=== PATIENT | male | born 1970 | race Caucasian/White ===

== ENCOUNTER 2017-03-05 13:51 | Inpatient (IN) ==
[2017-03-05] MEDS ORDERED: Nitroglycerin 0.4 MG TAB.SUBL SL PRN (15:18)
[2017-03-05] MEDS ORDERED: Acetaminophen 325 MG TABLET PO ONE (15:18)
[2017-03-05] MEDS ORDERED: Aspirin 81 MG TAB.CHEW PO ONE (15:18)
[2017-03-05 15:26] LABS: Basophils # 0.1 K/mcL (0.0-0.2); Basophils % 0.7 %; Eosinophils # 0.1 K/mcL (0.0-0.6); Eosinophils % 1.5 %; Hematocrit 49.4 % (37.5-50.1); Hemoglobin 15.8 g/dL (12.9-16.9); Immature Granulocytes % 0.3 % (0-4); Lymphocytes # 1.9 K/mcL (0.6-4.6); Lymphocytes % 19.6 %; Mean Corpuscular Hemoglobin 27.4 pg (28.0-33.3); Mean Corpuscular Volume 85.6 fL (83.0-100.0); Mean Platelet Volume 11.1 fL (9.4-12.4); Monocytes # 0.7 K/mcL (0.0-1.3); Monocytes % 6.9 %; Neutrophils # 6.8 K/mcL (1.6-8.9); Platelet Count 273 K/mcL (140-400); Red Blood Count 5.77 M/mcL (4.19-5.50); Red Cell Distribution Width 13.3 % (11.5-14.5)
--- NOTE | 2017-03-05 15:40 | Emergency Department Note ---
Disposition Clinical Impression: Chest pain, Hypertension Disposition: Admitted As Inpatient Condition: Fair Time of Disposition: 16:41 Chest Pain HPI - General Chief Complaint: ED Chest Pain Stated Complaint: Chest Pain, High BP Time Seen by Provider: 03/05/17 15:05 Source: patient Mode of arrival: ambulatory Limitations: no limitations Vital Signs Reviewed: Yes Nursing Notes Reviewed: Yes - History of Present Illness HPI Narrative: 46-year-old male presents to the ED complaining of chest pain. Patient has a past medical history of hypertension and a TIA in 2001. He has not been taking his hypertensive medications for approximately 2-3 years. Due to not seeing a primary care physician and not refilling them. He states since August he has had 5 out 10 chest pain that is nonradiating substernal in the center of his chest. He says that it can go as high as an 8 out of 10 when he is walking up stairs or doing any Exertional activities. He is a little short of breath when he does exertion as well. He says currently his pain is 4 out of 10 nonradiating and is a sharp stabbing pain that fluctuates between 4 at 10 and 6 out of 10 pain. He has not taken anything for the pain. He said the reason he came in today was that he notices below more dizzy when he gets out of bed and he was lowered to this brought his heart. He states the dizziness feels like the room is spinning around. He is having no other complaints at this time. Severity scale (1-10): 2 - Related Data Home Medications Medication Instructions Recorded Confirmed No Known Home Drugs 03/05/17 03/05/17 Allergies Allergy/AdvReac Type Severity Reaction Status Date / Time No Known Allergies Allergy Verified 03/05/17 13:53 Constitutional: Denies: fever, chills, weakness, weight change Eyes: Denies: eye pain, eye discharge, vision change ENT ED: Denies: ear pain, throat pain, dental pain, hearing loss, epistaxis, congestion, dysphagia Cardiovascular: Reports: chest pain. Denies: palpitations, dyspnea on exertion , edema, syncope Respiratory: Reports: dyspnea. Denies: cough, wheezes, hemoptysis, stridor Gastrointestinal: Denies: abdominal pain, nausea, vomiting, diarrhea, constipation, hematemesis, melena, hematochezia Genitourinary: Denies: urgency, dysuria, frequency, hematuria Musculoskeletal: Denies: back pain, neck pain, arthralgia, myalgia Integumentary: Denies: rash, abrasion, lesions Neurological: Denies: headache, weakness, numbness, paresthesias, confusion, abnormal gait, vertigo Psychiatric: Denies: anxiety, depression, suicidal thoughts, homicidal thoughts , auditory hallucinations, visual hallucinations Endocrine: Denies: fatigue Hematological/Lymphatic: Denies: easy bleeding, easy bruising Allergic/Immunologic: Denies: facial swelling, urticaria Chest Pain PMH - Past Medical History Medical history: Reports: hyperlipidemia, hypertension, other Psychiatric history: Reports: no psych history - Social History Smoking Status: Current every day smoker Alcohol use: Reports: none Drug use: Reports: none Physical Exam - General Limitations: no limitations General appearance: alert, in no apparent distress - Head Head exam: atraumatic, normocephalic, normal inspection - Eye Eye exam: Present: normal appearance, PERRL, EOMI - ENT ENT exam: normal exam, normal oropharynx, mucous membranes moist - Neck Neck exam: Present: normal inspection, full ROM, trachea midline - Chest Chest inspection: Present: normal inspection, symmetric chest wall rise. Absent : tenderness - Respiratory Respiratory exam: Present: normal lung sounds bilaterally. Absent: respiratory distress, wheezes - Cardiovascular Cardiovascular exam: Present: regular rate, normal rhythm, normal heart sounds - Abdominal Exam Abdominal exam: Present: soft, Non-Tender. Absent: tenderness, distention, guarding, rebound, rigidity - Back Exam Back exam: Present: normal inspection, full ROM. Absent: tenderness, CVA tenderness (R), CVA tenderness (L) - Neurological Exam Neurological exam: Present: alert, oriented X3, normal gait - Skin Skin exam: Present: warm, dry, intact, normal color Course Course Narrative: 46-year-old male presents to the ED complaining of chest pain and dizziness since August. He has a history of hypertension but has not been taking his medications this time. He also presented with an elevated blood pressure at over 200 systolic. Basic chest pain workup on him including CBC, BMP, hepatic panel, troponin, TSH as well as chest x-ray and EKG. For his pain we will give him nitroglycerin though also lower his blood pressure as well. We will give him 325 aspirin. 2 keep the headache from occurring with the nitroglycerin will also give him Tylenol. Patient is a This point. Spoke with him about most likely having to be admitted for a chest pain evaluation with cardiology. Patient was okay with this plan. Plan as analysis to admit the patient upon all studies coming back. - Reevaluation(s) Reevaluation #1: Patient reevaluated at this time states that he is not having any chest pain after nitroglycerin but his headache has increased. Larry a common side effects of the headache and he said that the Tylenol should Pete kick in here in a few and it should be feeling better. He is not wanting more pain medication at the time for the headache. His blood pressure dropped from the 210s when he first came in systolic to 183 systolic after the nitroglycerin was given. We did not want to lower it too much so we are going to not give him any more nitroglycerin this time unless he starts having chest pain will consider doing a nitro drip. He again is agreed to admission and he have contacted the hospitalist for admission. Time: 16:24 - Consultations Consultation #1: Spoke with Dr. Harry hospitalist who agreed to accept the patient to 2 N. He asked for me to put him on a nitro drip for blood pressure control to keep between 140-160 systolic. We started him on 5 mics per minute. This is being used for blood pressure control as opposed to chest pain Vital Signs Temperature 97.6 F 03/05/17 13:53 Pulse Rate 96 03/05/17 13:53 Respiratory Rate 18 03/05/17 13:53 Blood Pressure 212/135 03/05/17 13:53 O2 Sat by Pulse Oximetry 97 03/05/17 13:53 Temperature 97.6 F 03/05/17 13:53 Pulse Rate 75 03/05/17 17:00 Respiratory Rate 16 03/05/17 17:00 Blood Pressure 176/139 03/05/17 17:00 O2 Sat by Pulse Oximetry 98 03/05/17 17:00 Oxygen Delivery Oxygen Delivery Nasal Cannula Chest Pain - MDM Narrative Medical decision making narrative: 46-year-old male presents to the ED complaining of chest pain, high blood pressure, headache. His blood pressure was 210 systolic when he first arrived and he was complaining of 4 out 10 chest pain he has had this been going on for several months since August. He stated this evening about him in here today was the increasing dizziness. He has had very for polyp has not seen a doctor in over a year. He is not taking any of his medications. Due to his chest pain and his high blood pressure we sided treat him with one sublingual nitroglycerin which did lower his blood pressure down to 180 systolic. He is not complaining of any chest pain after the soleal nitroglycerin was given. We also gave him one 325 mg aspirin. He was also given 600 mg Tylenol for headache with the nitroglycerin. Patient was started on a liter of fluids for possible dehydration. The patient he agreed that admission would be his best course of action and he agreed to be admitted. As recommended due to him having this chest pain and not being seen and also having the very high blood pressure. He also has a heart score of 5 which recommends admission. And a cardiac evaluation. I spoke with the hospitalist Dr. Harry who agreed to admit the patient. After talking to him they asked for us to start a nitroglycerin drip to keep his blood pressure between 140 and 160 systolic. This is not being used for chest pain but used for blood pressure control. Patient is okay with this plan. Patient was admitted and was aspirin to be placed on 2 N. - Medical Records Medical records reviewed: Yes I reviewed the patient's medical records. - Lab Data Lab results reviewed: Yes I reviewed the patient's lab results. Result diagrams: 03/05/17 15:19 03/05/17 15:19 Lab Results 03/05/17 03/05/17 03/05/17 Range/Units 15:19 15:19 15:19 WBC 9.6 (4.3-11.1) K/mcL RBC 5.77 H (4.19-5.50) M/mcL Hgb 15.8 (12.9-16.9) g/dL Hct 49.4 (37.5-50.1) % MCV 85.6 (83.0-100.0) fL MCH 27.4 L (28.0-33.3) pg MCHC 32.0 (31.6-35.5) g/dL RDW 13.3 (11.5-14.5) % Plt Count 273 (140-400) K/mcL MPV 11.1 (9.4-12.4) fL Immature Gran % 0.3 (0-4) % Seg Neutrophils % 71.0 % Lymphocytes % 19.6 % Monocytes % 6.9 % Eosinophils % 1.5 % Basophils % 0.7 % Neutrophils # 6.8 (1.6-8.9) K/mcL Lymphocytes # 1.9 (0.6-4.6) K/mcL Monocytes # 0.7 (0.0-1.3) K/mcL Eosinophils # 0.1 (0.0-0.6) K/mcL Basophils # 0.1 (0.0-0.2) K/mcL Sodium 139 (136-145) mEq/L Potassium 4.0 (3.5-4.5) mEq/L Chloride 101 (98-109) mEq/L Carbon Dioxide 30 H (19-29) mEq/L BUN 16 (8-26) mg/dL Creatinine 1.24 (0.72-1.25) mg/dL Est GFR ( Amer) > 60 (> 60) Est GFR (Non-Af Amer) > 60 (> 60) BUN/Creatinine Ratio 13 (6-26) Glucose 95 (70-99) mg/dL Calculated Osmolality 289 (280-300) Calcium 9.7 (8.6-10.8) mg/dL Total Bilirubin 0.5 (0.2-1.2) mg/dL Direct Bilirubin 0.2 (0.0-0.5) mg/dL Indirect Bilirubin 0.3 (0.0-1.2) mg/dL AST 18 (5-34) Units/L ALT 25 (0-55) Units/L Alkaline Phosphatase 88 (38-126) Units/L Troponin I 0.03 (0-0.03) ng/mL B-Natriuretic Peptide (0-100) pg/mL Serum Total Protein 7.8 (6.0-8.3) g/dL Albumin 4.0 (3.5-5.0) g/dL Globulin 3.8 H (2.4-3.5) g/dL Albumin/Globulin Ratio 1.1 (1.1-2.2) TSH 1.037 (0.350-4.840) mcIU/mL 03/05/17 Range/Units 15:19 WBC (4.3-11.1) K/mcL RBC (4.19-5.50) M/mcL Hgb (12.9-16.9) g/dL Hct (37.5-50.1) % MCV (83.0-100.0) fL MCH (28.0-33.3) pg MCHC (31.6-35.5) g/dL RDW (11.5-14.5) % Plt Count (140-400) K/mcL MPV (9.4-12.4) fL Immature Gran % (0-4) % Seg Neutrophils % % Lymphocytes % % Monocytes % % Eosinophils % % Basophils % % Neutrophils # (1.6-8.9) K/mcL Lymphocytes # (0.6-4.6) K/mcL Monocytes # (0.0-1.3) K/mcL Eosinophils # (0.0-0.6) K/mcL Basophils # (0.0-0.2) K/mcL Sodium (136-145) mEq/L Potassium (3.5-4.5) mEq/L Chloride (98-109) mEq/L Carbon Dioxide (19-29) mEq/L BUN (8-26) mg/dL Creatinine (0.72-1.25) mg/dL Est GFR ( Amer) (> 60) Est GFR (Non-Af Amer) (> 60) BUN/Creatinine Ratio (6-26) Glucose (70-99) mg/dL Calculated Osmolality (280-300) Calcium (8.6-10.8) mg/dL Total Bilirubin (0.2-1.2) mg/dL Direct Bilirubin (0.0-0.5) mg/dL Indirect Bilirubin (0.0-1.2) mg/dL AST (5-34) Units/L ALT (0-55) Units/L Alkaline Phosphatase (38-126) Units/L Troponin I (0-0.03) ng/mL B-Natriuretic Peptide 515 H (0-100) pg/mL Serum Total Protein (6.0-8.3) g/dL Albumin (3.5-5.0) g/dL Globulin (2.4-3.5) g/dL Albumin/Globulin Ratio (1.1-2.2) TSH (0.350-4.840) mcIU/mL - Radiology Data Radiology results reviewed: Yes I reviewed the patient's radiology results. - EKG Data EKG attestation: Yes I reviewed and interpreted this EKG. EKG results narrative: EKG done and reviewed by myself at 1356. It shows a normal sinus rhythm at a rate of 91 bpm, TN interval 168, QRS 101, QTC 426 with a leftward axis. There are no acute ST changes, no T-wave abnormalities. There are signs of LVH and right heart strain as well as some early re-pole with left atrial enlargement.. He does have lateral Q waves. There is no old EKG to compare at this time. My overall impression of this EKG normal sinus rhythm with LVH and right heart strain and some possible old lateral wall ischemia. EKG shows normal: sinus rhythm, axis, intervals, QRS complexes, ST-T waves Rate: normal Rhythm: NSR [place]/QRS: left axis deviation Voltage: c/w LVH When compared to previous EKG there are: previous EKG unavailable Interpretation: LVH Heart Score - Score History: Moderately Suspicious EKG: Non Specific repolarisation Disturbance Age: 45-65 Risk Factors: Equal/Greater than 3 risk factor or history of atherosclerotic disease Troponin: Less than normal limit HEART Score Total: 5 Critical Care Time Critical Care Time: Yes Total Critical Care Time: 30 Attestation: Critical care performed: Time is exclusive of separately billable procedures. Time includes: direct patient care, patient reassessment, coordination of patient care, interpretation of data (laboratory data, radiology data, and respiratory data), review of patient's medical records, medical consultation and documentation of patient care. Procedures included in critical care time: Nitro Drip Procedures excluded from critical care time: Attestation Statement - Attestation Attestation: I, Kilo Angel DO, examined this patient [id number] and my medical decision-making was reviewed with Dr. Strange PGY -1, Resident Physician. I agree with the documented findings, disposition and treatment plan as described except to the extent set forth below. Please see my progress notes for details. 46-year-old male presents emergency room chest pain hypertension and headache. Symptoms of been progressively getting worse over months. Pain in his back and his anterior chest wall is persistent at this point. He has exertional symptoms with pain that is worse with deep inspiration or exertional activities at home. Patient is noncompliant with medical treatment. Blood pressure was significantly elevated. Labs appear to be stable at this point except for elevated BNP. EKG showed left ventricular heart atrophy with early repolarization and atrial enlargement. This is consistent with his elevated blood pressure as well as his pulmonary congestion. Will be started on coronary syndrome treatment. Patient will require admission to hospital for evaluation definitive management. Concern is noted for cardiac source to his symptoms. Patient phone as planned. No other issues noted. Chest x-ray and labs reviewed. Hospitals contacted. Admission completed this time. Symptoms did respond to nitroglycerin with his blood pressure coming down into the 180 systolic range as well as his chest pain completely relieved. Patient will be monitored here until admission process is completed. See detailed documentation of conversations and admission note and the resident physician chart. Requests were made by the hospitalist for nitroglycerin drip. Low dosage of medication abuse at this time except the patient is chest pain-free. We will use of her blood pressure control as opposed to chest pain.
[2017-03-05 15:42] LABS: Alanine Aminotransferase 25 Units/L (0-55); Albumin/Globulin Ratio 1.1 (1.1-2.2); Alkaline Phosphatase 88 Units/L (38-126); Aspartate Amino Transferase 18 Units/L (5-34); BUN/Creatinine Ratio 13 (6-26); Bilirubin,Direct 0.2 mg/dL (0.0-0.5); Bilirubin,Indirect 0.3 mg/dL (0.0-1.2); Bilirubin,Total 0.5 mg/dL (0.2-1.2); Blood Urea Nitrogen 16 mg/dL (8-26); Calcium 9.7 mg/dL (8.6-10.8); Carbon Dioxide 30 mEq/L (19-29); Chloride 101 mEq/L (98-109); Globulin 3.8 g/dL (2.4-3.5); Glucose 95 mg/dL (70-99); Osmolality,Calculated 289 (280-300); Sodium 139 mEq/L (136-145); Total Protein 7.8 g/dL (6.0-8.3); eGFR For African Americans > 60 (> 60); eGFR For Non-African Americans > 60 (> 60)
[2017-03-05 16:02] LABS: Thyroid Stimulating Hormone 1.037 mcIU/mL (0.350-4.840)
[2017-03-05] MEDS ORDERED: 0.9 % Sodium Chloride 1,000 ML IVC ONE (16:18)
[2017-03-05] MEDS: Nitroglycerin 25 MG/250 ML INFUS..BTL IVC SCH (16:54)
[2017-03-05] MEDS ORDERED: 0.9 % Sodium Chloride 1,000 ML ONE (18:25)
[2017-03-05] MEDS ORDERED: *HR* Morphine 2 MG/ML SYRINGE IVP PRN (20:13)
[2017-03-05] MEDS ORDERED: Naloxone 0.4 MG/ML INJ IVP PRN (20:13)
[2017-03-05] MEDS ORDERED: Acetaminophen 325 MG TABLET PO PRN (20:13)
--- NOTE | 2017-03-05 20:40 | Internal Med History&Physical ---
<Shahram Euceda - Last Filed: 03/05/17 23:48> Date of Encounter: 03/05/17 Time of Encounter: 19:30 Assessment and Plan (1) HTN (hypertension) Current visit: Yes Status: Acute Patient presents with acute on chronic hypertension. On admission to the ED, patient's BP was 212/135 followed by 176/139. Patient placed on nitro drip for blood pressure control in order to keep systolic pressure between 140-160. He was started on 5 mics per minute for BP and current chest pain control. Hydralazine 10 mg PO ONCE ordered. Lopressor 25 mg PO BID ordered daily. Will titrate nitro drip according to patient's BP levels. Will add statin. Monitor patient and vitals Q1HR. Cardiology consult ordered. Patient placed on continuous cardiac telemetry due to current chest pain. Supplemental O2 and SpO2 monitoring ordered. Qualifiers: Hypertension type: essential hypertension Qualified Code(s): I10 - Essential (primary) hypertension (2) Chest pain Current visit: Yes Status: Acute Patient presents with acute on chronic chest pain that he states has been occurring since August and has become progressively worse. He states the pain is substernal and non-radiating and becomes worse with exertion. 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 Initial troponin on admission to ED was 0.03. BP on examination was 68/121. Echocardiogram ordered. Will trend troponins x2. Patient to be placed on continuous cardiac telemetry. Cardiology consult ordered. Will consider nuclear stress test if hypertension can be addressed and lowered. Patient placed on nitro drip with titration. Hydralazine 10 mg PO ONCE ordered. Will administer Lopressor 25 mg PO BID. Patient to be monitored closely. Qualifiers: Chest pain type: chest pain on breathing Qualified Code(s): R07.1 - Chest pain on breathing; R07.81 - Pleurodynia (3) Dizziness Current visit: Yes Status: Acute Patient reports acute dizziness with positional body and head changes and states it feels as though the room is spinning. Patient reports having a TIA in 2001 that resulted in short-term memory loss. Patient also reports having abdominal aneurysms x3. On examination, patient has no neurological deficits. CTA of chest, abdomen, and pelvis ordered to assess for PE and abdominal aneurysm status. Bilateral carotid Doppler duplex imaging ordered. Falls/safety precautions. Orthostatic BPs and VS ordered. (4) HLD (hyperlipidemia) Current visit: Yes Status: Chronic Patient presents with history of chronic hyperlipidemia. Lipid panel ordered. Lipitor 20 mg daily ordered while inpatient. Qualifiers: Hyperlipidemia type: pure hypercholesterolemia Qualified Code(s): E78.00 - Pure hypercholesterolemia, unspecified; E78.0 - Pure hypercholesterolemia (5) GERD (gastroesophageal reflux disease) Current visit: Yes Status: Chronic Patient presents with history of chronic gastroesophageal reflux disease. IVP Zofran every 6 when necessary for nausea. IVP Protonix 40 mg once a day ordered. Qualifiers: Esophagitis presence: esophagitis presence not specified Qualified Code(s) : K21.9 - Gastro-esophageal reflux disease without esophagitis (6) Abdominal aneurysm Current visit: Yes Status: Chronic Patient has history of chronic abdominal aneurysms x3. Last imaging of these in 2015 showed mild abdominal aortic atherosclerosis. Infrarenal fusiform 4.4 x 4.6 cm aneurysm with mural thrombus and no evidence of dissection. The aneurysm measures approximately 7.2 cm in length. The celiac axis, superior mesenteric arteries, and renal arteries are patent. The inferior mesenteric artery arises from the distal aspect of the aneurysm and is patent. Mild bilateral common iliac atherosclerosis with short segment 1.9 cm aneurysmal dilatation of the right common iliac artery extending to the bifurcation. Bilateral internal and external iliac arteries demonstrate atherosclerosis with no aneurysm formation. No evidence of dissection. CTA of the chest, abdomen, and pelvis ordered to determine current status of these aneurysms. (7) DVT prophylaxis Current visit: Yes Status: Acute Patient placed on DVT prophylaxis due to current admission protocol and bedrest status. Heparin 5000 units SQ every 8 ordered. Internal Medicine - H&P: HPI Chief complaint: Chest pain/SOB Admitted From: Emergency Dept Plans for Post Hospital Care: Home History of present illness: Mr. Berrios is a 46 year old male who presents from the ED with chief complaint of hypertension and chest pain. He describes chest pain as substernal and non-radiating and has been occurring since August. He states the CP becomes worse with exertion. Patient states that his hypertension has been uncontrolled since he stopped taking his BP medications 2-3 years ago due to losing his insurance. He reports he now has a job and insurance but no PCP. He also states that he becomes very dizzy with postional body or head changes to the point where he feels like the room is spinning. With the current symptoms, Mr. Berrios also reports diaphoresis and SOB. Patient denies recent illness, fever, chills, weakness, weight change, changes in vision, edema, cough, abdominal pain, nausea, vomiting, diarrhea, constipation, unusual bleeding, or syncope. Patient's current medical history includes hyperlipidemia, hypertension, TIAs with last incident in 2001 which he states he lost his short- term memory, GERD, and gout. Patient also has a history of 3 abdominal aneurysms. Mr. Berrios reports he is a current every day smoker smoking one half pack per day. Single view CXR today shows cardiomediastinal silhouette is within normal limits, mild nonspecific hazy opacities at right lung base, no pneumothorax, no vascular congestion or consolidation, no pleural effusion or acute osseous abnormality. Information obtained from the patient, chart review, and previous medical records. Mr. Berrios is at high risk for hypertensive emergency due to his BP of 168/121 and will be placed as inpatient status. Time spent with patient >50 minutes. Past Med Surg Social Fam HX - Past Medical History Source: patient, old records reviewed Medical history: hyperlipidemia, hypertension, TIA, other (Gout) Psychiatric history: no psych history - Past Surgical History Surgical History: no surgical history - Social History Smoking Status: Current every day smoker Packs per day: 1/2 PPD Smokeless Tobacco Status: No Alcohol use: none Drug use: none Occupational status: employed Current living situation: Home, With Family Activity Level: Independent ambulation Recent Out of Country Travel Within the Last 8 Weeks: No Exposure or Possible Exposure to Illness During Travel: No - Family History Father History Unknown: Yes Adopted: Yes Mother History Unknown: Yes Adopted: Yes Brother History Unknown: Yes Adopted: Yes Sister History Unknown: Yes Adopted: Yes Grandfather Race: Family Member Ethnicity: Non- Living Status: Cause of : HD Hx Family Cardiac Disorders: Yes (HD, HTN, HLD) Hx Family Genitourinary Disorders: Yes (Gout) Hx Family Endocrine Disorder: Yes (DM) Internal Medicine - H&P: Meds No Known Home Drugs 03/05/17 [History] 3 Allergy/AdvReac Type Severity Reaction Status Date / Time No Known Allergies Allergy Verified 03/05/17 13:53 All Systems PM: A 10-system review of systems was performed and is negative for pertinent findings except as documented above in the HPI. - Constitutional Constitutional: no chills, no fever(s), no night sweats - EENT Eyes: no change in vision, no discharge, no pain, no photophobia Ears: no ear discharge, no ear pain, no tinnitus Nose, mouth and throat: no dysphagia, no nasal discharge, no neck pain, no sore throat - Breasts Breasts: as per HPI - Cardiovascular Cardiovascular ROS IM: as per HPI, chest pain, diaphoresis, dyspnea, dyspnea on exertion, lightheadedness (Dizziness) - Respiratory Respiratory: as per HPI, dyspnea, dyspnea on exertion, pain on inspiration - Gastrointestinal Gastrointestinal: no abdominal pain, no diarrhea, no hematemesis, no hematochezia, no melena, no nausea, no vomiting - Genitourinary Genitourinary ROS male: as per HPI - Musculoskeletal Musculoskeletal ROS IM: no numbness, no tingling - Integumentary Integumentary IM: no rash, no unusual bruising - Neurological Neurological ROS: as per HPI, disequilibrium, dizziness, no confusion, no convulsions, no focal weakness, no numbness, no tingling, no tremor(s) - Psychiatric Psychiatric: as per HPI - Endocrine Endocrine IM: as per HPI - Hematologic/Lymphatic Hematologic/Lymphatic: no easy bruising - Allergic/Immunologic Allergic/Immunologic: as per HPI - Constitutional Vitals: Temp Pulse Resp BP Pulse Ox 97.7 F 80 20 189/135 98 03/05/17 18:29 03/05/17 18:29 03/05/17 18:29 03/05/17 18:57 03/05/17 18:29 General appearance: Present: cooperative, A&O X 3, pleasant, no acute distress, answers questions appropriately - Head Head exam: Present: atraumatic, normocephalic - Eye Eye exam: Present: PERRL, conjuntiva pink, sclera anicteric Pupils: Present: PERRL - ENT ENT exam: Present: normal exam, normal external ear exam - Neck Neck exam general surgery: Present: normal inspection, supple, trachea midline. Absent: lymphadenopathy - Respiratory Respiratory exam: Present: CTAB, wheezes. Absent: accessory muscle use, rales, rhonchi - Cardiovascular Cardiovascular exam: Present: RRR, +S1, +S2. Absent: diastolic murmur, gallop, rubs, systolic murmur - GI/Abdominal GI/Abdominal exam: Present: normal bowel sounds, soft, no peritoneal signs. Absent: distended, tenderness - Rectal Rectal exam: Present: deferred - Additional comments: exam deferred. - Extremities Exam Extremities exam: Present: warm, radial pulses palpable and symmetrical. Absent : calf tenderness, cyanotic, pedal edema - Back Exam Back exam: Present: normal inspection - Neurological Exam Neurological exam: Present: CN II-XII intact, oriented X3, no focal deficits. Absent: pronater drift, facial droop, speech deficit - Psychiatric Psychiatric exam: Present: normal affect, normal mood - Skin Skin exam: Present: dry, intact Internal Med - H&P Results - Labs CBC & Chem 7: 03/05/17 15:19 03/05/17 15:19 - Diagnostic Studies Chest x-ray Additional comments: Impressions Chest X-Ray 03/05/17 13:57 IMPRESSION: Mild nonspecific right basilar hazy airspace opacities. D/ / Philip Bass MD / Philip Bass MD Interpreting Provider: Philip Bass MD <Kat Bernstein W - Last Filed: 03/06/17 07:02> Date of Encounter: 03/06/17 Internal Medicine - H&P: HPI History of present illness: Mr. Berrios is a 46 year old male All Systems PM: A 10-system review of systems was performed and is negative for pertinent findings except as documented above in the HPI. - Constitutional Vitals: Temp Pulse Resp BP Pulse Ox 98.1 F 87 16 164/117 97 03/06/17 03:00 03/06/17 06:25 03/06/17 03:00 03/06/17 06:25 03/06/17 03:00 Internal Med - H&P Results - Labs CBC & Chem 7: 03/06/17 03:54 03/06/17 03:54 Labs: Short CBC 03/06/17 Range/Units 03:54 WBC 10.1 (4.3-11.1) K/mcL Hgb 14.0 D (12.9-16.9) g/dL Hct 42.7 (37.5-50.1) % Plt Count 220 (140-400) K/mcL Neutrophils # 8.2 (1.6-8.9) K/mcL BMP 03/06/17 03:54 Sodium 139 Potassium 3.6 Chloride 105 Carbon Dioxide 25 BUN 16 Creatinine 1.11 Glucose 121 H Calcium 9.0 Cardiac Enzymes 03/05/17 03/06/17 Range/Units 22:33 03:54 Troponin I 0.01 0.04 H* (0-0.03) ng/mL - Attending Attestation Seen/examined/supervised MDM. 46M with uncontrolled HTN, prior TIA and AAA has been non-adherent to att least 3 anti-HTN agents (clonidine, metoprolol, lisinopril) due to lack of insurance. He has presented with chest pain, dyspnea , dizziness, disorientation and headache along with BP of 220s/120's consistent with hypertensive emergency. Continue NG gtt, and start PO metoprolol, uptitrate as needed. May need to add PO clonidine. Gradually decrease BP. He also has right basilar opacity on CXR, without S/S of PNA, will not use any antibiotics. Later CTA showed increase in the size of AAA, consult vascular surgery. He had chest pain as a manifestation of HTN emergency with EKG showing lateral TWI likely due to LVH. Serial troponin, TTE. He may benefit from a stress test once better BP control is achieved. Must quit tobacco use.
[2017-03-05] MEDS ORDERED: Levofloxacin 750 MG/150 ML 750 MG/150 ML BAG IVPB SCH (21:00)
[2017-03-05] MEDS: Pantoprazole 40 MG VIAL IVP SCH (22:18)
[2017-03-05] MEDS: *HR* Heparin 5,000 UNIT/ML VIAL SQ SCH (23:13)
[2017-03-06] MEDS ORDERED: Temazepam 15 MG CAPSULE PO PRN (00:20)
[2017-03-06] MEDS: *HR* HYDROcodone/Acet 5/325 mg TABLET PO PRN ×2 (01:37→18:40)
[2017-03-06] MEDS ORDERED: Prochlorperazine 10 MG/2 ML VIAL IVP PRN (02:53)
[2017-03-06 04:29] LABS: Basophils # 0.1 K/mcL (0.0-0.2); Basophils % 0.7 %; Eosinophils # 0.1 K/mcL (0.0-0.6); Eosinophils % 0.8 %; Hematocrit 42.7 % (37.5-50.1); Immature Granulocytes % 0.3 % (0-4); Lymphocytes # 1.1 K/mcL (0.6-4.6); Lymphocytes % 11.3 %; Mean Corpuscular HGB Conc 32.8 g/dL (31.6-35.5); Mean Corpuscular Hemoglobin 27.8 pg (28.0-33.3); Mean Corpuscular Volume 84.9 fL (83.0-100.0); Mean Platelet Volume 11.3 fL (9.4-12.4); Monocytes # 0.5 K/mcL (0.0-1.3); Monocytes % 5.3 %; Neutrophils # 8.2 K/mcL (1.6-8.9); Platelet Count 220 K/mcL (140-400); Red Blood Count 5.03 M/mcL (4.19-5.50); Red Cell Distribution Width 13.5 % (11.5-14.5); Segmented Neutrophils % 81.6 %
[2017-03-06 04:31] LABS: INR 1.1; Prothrombin Time 11.5 Seconds (9.4-12.1)
[2017-03-06 04:34] LABS: Activated Partial Thrombo Time 28.8 Seconds (26.0-36.0)
[2017-03-06 04:41] LABS: Hemoglobin A1C 5.4 %
[2017-03-06 04:44] LABS: BUN/Creatinine Ratio 14 (6-26); Blood Urea Nitrogen 16 mg/dL (8-26); Carbon Dioxide 25 mEq/L (19-29); Chloride 105 mEq/L (98-109); Chol/HDL Ratio 8.2 (0-4.9); Cholesterol 245 mg/dL (< 200); Glucose 121 mg/dL (70-99); HDL Cholesterol 30 mg/dL (40-59); Magnesium 1.9 mg/dL (1.6-2.6); Osmolality,Calculated 290 (280-300); Potassium 3.6 mEq/L (3.5-4.5); Sodium 139 mEq/L (136-145); Triglycerides 587 mg/dL (< 150); eGFR For African Americans > 60 (> 60); eGFR For Non-African Americans > 60 (> 60)
[2017-03-06] MEDS: Nitroglycerin 25 MG/250 ML INFUS..BTL IVC SCH (06:10)
[2017-03-06] MEDS: Pantoprazole 40 MG VIAL IVP SCH (08:17)
[2017-03-06] MEDS: *HR* Heparin 5,000 UNIT/ML VIAL SQ SCH ×2 (08:17→15:59)
[2017-03-06] MEDS ORDERED: Ondansetron 4 MG/2 ML VIAL IVP PRN (09:22)
[2017-03-06] MEDS ORDERED: *HR* Labetalol 20 MG/4 ML SYRINGE IVP PRN (09:28)
--- NOTE | 2017-03-06 09:35 | Internal Med Progress Note ---
Date of Encounter: 03/06/17 Time of Encounter: 09:33 - Assessment and plan (1) Malignant essential hypertension Current Visit: Yes Status: Acute Assessment and plan: Discontinue nitroglycerin drip due to severe headache Stop metoprolol and start labetalol, continue use labetalol IV and hydralazine IV as needed Patient used to be on amlodipine and lisinopril, we will resume these medications Echocardiogram ordered (2) Chest pain Current Visit: Yes Status: Acute Assessment and plan: Consider stress test Cardiology consulted, continue aspirin Qualifiers: Chest pain type: chest pain on breathing Qualified Code(s): R07.1 - Chest pain on breathing; R07.81 - Pleurodynia (3) HLD (hyperlipidemia) Current Visit: Yes Status: Chronic Assessment and plan: Hypercholesterolemia and hypertriglyceridemia Start fenofibrate and continue simvastatin Qualifiers: Hyperlipidemia type: mixed hyperlipidemia Qualified Code(s): E78.2 - Mixed hyperlipidemia (4) GERD (gastroesophageal reflux disease) Current Visit: Yes Status: Chronic Assessment and plan: Continue Protonix IV and Zofran as needed as the patient is currently vomiting Qualifiers: Esophagitis presence: esophagitis presence not specified Qualified Code(s) : K21.9 - Gastro-esophageal reflux disease without esophagitis (5) Abdominal aneurysm Current Visit: Yes Status: Chronic Assessment and plan: Vascular surgery recommendations appreciated CTA of the abdomen showed 1. Re- demonstration of an infrarenal abdominal aortic aneurysm, which has increased in size when compared to the previous exam, now measuring 5.1 cm maximally. Given the relatively rapid increase since the previous exam, vascular surgical consultation is recommended. 2. Unchanged right common iliac artery aneurysm, measuring 1.9 cm. 3. Unchanged ascending thoracic aortic aneurysm, measuring maximally 4.5 cm. - Subjective Interval history: Complaining of severe headache after starting the nitroglycerin drip, denies any chest pain at the moment, no abdominal pain, no dysuria, no fevers or cough - Constitutional Vitals: Temp Pulse Resp BP Pulse Ox 98.0 F 79 16 169/114 91 03/06/17 07:35 03/06/17 07:35 03/06/17 07:35 03/06/17 09:30 03/06/17 07:35 General appearance: Present: cooperative, A&O X 3, pleasant, no acute distress, answers questions appropriately - Head Head exam: Present: atraumatic, normocephalic - Eye Eye exam: Present: PERRL, conjuntiva pink, sclera anicteric Pupils: Present: PERRL - Neck Neck exam general surgery: Present: supple, trachea midline. Absent: lymphadenopathy - Respiratory Respiratory exam: Present: CTAB. Absent: accessory muscle use, rales, rhonchi, wheezes - Cardiovascular Cardiovascular exam: Present: RRR, +S1, +S2. Absent: diastolic murmur, gallop, rubs, systolic murmur - GI/Abdominal GI/Abdominal exam: Present: normal bowel sounds, soft, no peritoneal signs. Absent: distended, tenderness - Extremities Exam Extremities exam: Present: warm, radial pulses palpable and symmetrical. Absent : calf tenderness, cyanotic, pedal edema - Neurological Exam Neurological exam: Present: CN II-XII intact, oriented X3, no focal deficits. Absent: pronater drift, facial droop, speech deficit - Skin Skin exam: Present: dry, intact Internal Medicine: Result - Labs CBC & Chem 7: 03/06/17 03:54 03/06/17 03:54 Labs: Short CBC 03/06/17 Range/Units 03:54 WBC 10.1 (4.3-11.1) K/mcL Hgb 14.0 D (12.9-16.9) g/dL Hct 42.7 (37.5-50.1) % Plt Count 220 (140-400) K/mcL Neutrophils # 8.2 (1.6-8.9) K/mcL BMP 03/06/17 03:54 Sodium 139 Potassium 3.6 Chloride 105 Carbon Dioxide 25 BUN 16 Creatinine 1.11 Glucose 121 H Calcium 9.0 Cardiac Enzymes 03/05/17 03/06/17 Range/Units 22:33 03:54 Troponin I 0.01 0.04 H* (0-0.03) ng/mL - ABG Interpretation ABG results: PT/INR, D-dimer PT 11.5 Seconds (9.4-12.1) 03/06/17 03:54 Consult Discharge Plan - Plan Referrals: Peter Espinal DO [Primary Care Provider] -
[2017-03-06] MEDS: Lisinopril 20 MG TABLET PO SCH (09:48)
[2017-03-06] MEDS: amLODIPine 5 MG TABLET PO SCH (09:48)
[2017-03-06] MEDS: Fenofibrate 54 MG TABLET PO SCH (09:48)
--- NOTE | 2017-03-06 11:18 | Cardiology Consult Note ---
Date of Encounter: 03/06/17 Time of Encounter: 11:14 Assessment and Plan (1) Chest pain Current Visit: Yes Status: Acute Chest pain initially started in August when he thought he had PNA. Has been intermittent since that time, substernal without radiation. Atypical in nature, described as worse with inspiration--pleuritic. Denies any worsening with exertion. Chest pain also in setting of accelerated HTN BP 212/135 on presentation. Chest pain currently /10. Associated symptoms include dyspnea, headache, dizziness, episode of nausea and vomiting this AM. Troponins negative x 2, 0.04, then negative. EKG shows LVH. Risk factors for CAD include HTN, HLD, tobacco abuse. Recommend stress test tomorrow to evaluate for ischemic cause. Currently on nitro gtt for his accelerated HTN. Will attempt to wean off. Check echo to evaluate structure and function. Also recommend optimal BP control. Qualifiers: Chest pain type: chest pain on breathing Qualified Code(s): R07.1 - Chest pain on breathing; R07.81 - Pleurodynia (2) Accelerated hypertension Current Visit: Yes Status: Acute BP 212/135 on presentation. Per pt, has been out of antihypertensives for 1 year due to losing insurance. Reports when he checks BP at home it is usually 180s/130s. Currently on Norvasc 10mg, Labetalol 200mg BID, Nitro gtt at 30mcg/min and Lisinopril 40mg daily. Attempt to wean off nitro. Most recent BP 138/97--may be why pt feels dizzy and nauseous. Will continue to adjust oral antihypertensives as necessary. (3) Elevated troponin Current Visit: Yes Status: Acute 3rd troponin was borderline 0.04 in setting of accelerated HTN. All other troponins negative. Suspect demand ischemia, nondiagnostic for ACS. Echo and stress as above. (4) Abdominal aneurysm Current Visit: Yes Status: Chronic Known hx of AAA. Chest CT shows increased size of infrarenal AAA 5.1x4.9cm. Right common iliac aneurysm 1.9cm and ascending thoracic aortic aneurysm 4.5cm. Recommend pt establish with vascular. Discussion w patient/family: The assessment and plan as outlined above was discussed with the patient and/or family members who expressed understanding and agreement. All questions were answered. Thank you for involving us in the care of your patient. Please call with any questions. I will discuss all the above with Dr. Chang and make changes as necessary. History of Present Illness Consult date: 03/06/17 Requesting physician: Kat Bernstein Consult reason: elevated troponin, chest pain Chief complaint: chest pain, dizziness History of present illness: Mr. Berrios is a 46 year old male with PMH of HTN, HLD, tobacco abuse, TIA in 2001, GERD, gout that presented to the ED with chief complaint chest pain. He describes chest pain as substernal and non-radiating and has been occurring since August intermittently. He states the CP becomes worse with breathing, not associated with exertion. Patient states that his hypertension has been uncontrolled since he stopped taking his BP medications 1 year ago due to losing his insurance. He reports he now has a job and insurance but no PCP. He also states that he becomes very dizzy with postional body or head changes to the point where he feels like the room is spinning. He also reports diaphoresis and SOB, had an episode of nausea and vomiting this AM. Currently on nitro gtt at 30mcg/min. Hx of AAA as well. BP on presentation was 212/135, currently 138/ 97. Pt is currently dizzy and reports throat tightness and chest pain 1/10. Troponin negative x 2, 0.04, then 0.02. Chest CTA revealed a 5.1 x 4.9cm infrarenal AAA, increased in size from prior exam, right common iliac aneurysm 1.9cm and ascending thoracic aortic aneurysm 4.5cm. Past Med Surg Social Fam HX - Past Medical History Medical history: hyperlipidemia, hypertension, TIA, other (Gout) Psychiatric history: no psych history - Past Surgical History Surgical History: no surgical history - Social History Smoking Status: Current every day smoker Packs per day: 1/2 PPD Smokeless Tobacco Status: No Alcohol use: none Drug use: none - Family History Father History Unknown: Yes Adopted: Yes Mother History Unknown: Yes Adopted: Yes Brother History Unknown: Yes Adopted: Yes Sister History Unknown: Yes Adopted: Yes Grandfather Race: Family Member Ethnicity: Non- Living Status: Cause of : HD Hx Family Cardiac Disorders: Yes (HD, HTN, HLD) Hx Family Genitourinary Disorders: Yes (Gout) Hx Family Endocrine Disorder: Yes (DM) Medications and Allergies No Known Home Drugs 03/05/17 [History] 3 Allergy/AdvReac Type Severity Reaction Status Date / Time No Known Allergies Allergy Verified 03/05/17 13:53 All Systems Review: A 10-system review of systems was performed and is negative for pertinent findings except as documented above in the HPI. - Cardiovascular Cardiovascular: as per HPI, chest pain at rest, diaphoresis, dyspnea at rest, dyspnea on exertion, lightheadedness - Respiratory Respiratory: cough, dyspnea, wheezing - Gastrointestinal Gastrointestinal: nausea Physical Examination Vital Signs, Last 4 Hours Temp Pulse Resp BP Pulse Ox 03/06/17 10:16 138/97 03/06/17 09:30 169/114 03/06/17 08:35 171/110 03/06/17 07:35 98.0 F 79 16 161/106 91 Vital Signs Temp Pulse Resp BP Pulse Ox 03/06/17 10:16 138/97 03/06/17 09:30 169/114 03/06/17 08:35 171/110 03/06/17 07:35 98.0 F 79 16 161/106 91 03/06/17 06:25 87 164/117 03/06/17 05:25 140/92 03/06/17 04:15 144/96 03/06/17 03:15 164/109 03/06/17 03:00 98.1 F 80 16 160/112 97 03/06/17 02:20 146/95 03/06/17 02:14 143/103 03/06/17 02:10 146/99 03/06/17 02:05 147/103 03/06/17 02:02 148/101 03/06/17 02:00 148/101 03/06/17 01:50 159/103 03/06/17 01:40 178/122 03/06/17 01:35 182/125 03/06/17 01:30 177/122 03/06/17 01:25 184/122 03/06/17 01:20 167/117 03/06/17 01:15 179/117 03/06/17 01:10 187/132 03/06/17 01:00 175/129 03/06/17 00:55 166/120 03/06/17 00:50 169/122 03/06/17 00:45 174/129 03/06/17 00:40 177/132 03/06/17 00:30 178/130 03/06/17 00:15 182/125 03/06/17 00:00 171/129 03/05/17 23:40 191/132 03/05/17 23:35 182/126 03/05/17 23:30 185/120 03/05/17 23:18 183/121 03/05/17 23:10 187/127 03/05/17 23:06 184/124 03/05/17 23:05 184/124 03/05/17 23:03 86 184/132 97 03/05/17 18:57 189/135 03/05/17 18:40 186/44 03/05/17 18:29 97.7 F 80 20 193/150 98 03/05/17 18:13 16 184/141 03/05/17 17:30 81 16 179/138 99 03/05/17 17:00 75 16 176/139 98 03/05/17 16:30 73 16 173/132 98 03/05/17 16:15 81 16 181/142 98 03/05/17 16:00 78 16 183/147 98 03/05/17 15:45 77 16 184/147 98 03/05/17 15:30 84 16 204/146 98 03/05/17 15:18 86 18 195/154 98 03/05/17 15:16 98 03/05/17 13:53 97.6 F 96 18 212/135 97 Intake and Output 03/05/17 03/06/17 03/06/17 23:59 07:59 15:59 Intake Total 1034.4 / 1034.4 215.6 / 215.6 285 / 285 Output Total 1200 / 1200 850 / 850 300 / 300 Balance -165.6 / -165.6 -634.4 / -634.4 -15 / -15 Intake: IV Fluids 1034.4 / 1034.4 215.6 / 215.6 165 / 165 0.9 % Sodium Chloride 1, 1000 / 1000 000 ML @ 3750 mls/hr IVC .Q16M [facility] Rx#:[id number] Nitroglycerin Premix 25 34.4 / 34.4 215.6 / 215.6 165 / 165 MG/250 ML 25 mg In 250 ml @ 5 MCG/MIN 3 mls/hr IVC .Q24H [facility] Rx#:[id number] Oral 120 / 120 Output: Urine 1200 / 1200 850 / 850 Emesis 300 / 300 Other: Meal Breakfast Percent of Meal Consumed 100% Weight 85.956 kg 85.956 kg Patient Weight 03/06/17 23:59 Weight 85.956 kg General: Conversant, No Apparent Distress HEENT: Atraumatic, Normocephaly, Mucus Membranes Moist Neck: No JVD, Normal carotid pulses Cardiac: Reg Rate and Rhythm, Normal S1 and S2, No Murmur Lungs: Normal Breath Sounds, No Wheeze, Rales, Rhonchi Neuro: Alert and responsive, No focal deficits noted Abdomen: Soft, Non-Tender Skin: No rashes noted on visualized skin Musculoskeletal: No Chest Wall Tenderness Extremities: No Clubbing, No Cyanosis, No Edema, Normal Pulses Results 03/06/17 03:54 03/06/17 03:54 Lab Results 03/05/17 03/06/17 03/06/17 22:33 03:54 03:54 WBC 10.1 Hgb 14.0 D Hct 42.7 Plt Count 220 INR 1.1 APTT 28.8 Sodium Potassium Chloride Carbon Dioxide BUN Creatinine Glucose Calcium Magnesium Troponin I 0.01 03/06/17 03/06/17 03/06/17 03:54 03:54 09:57 WBC Hgb Hct Plt Count INR APTT Sodium 139 Potassium 3.6 Chloride 105 Carbon Dioxide 25 BUN 16 Creatinine 1.11 Glucose 121 H Calcium 9.0 Magnesium 1.9 Troponin I 0.04 H* 0.02 Short CBC 03/06/17 03/05/17 Range/Units 03:54 15:19 WBC 10.1 9.6 (4.3-11.1) K/mcL Hgb 14.0 D 15.8 (12.9-16.9) g/dL Hct 42.7 49.4 (37.5-50.1) % Plt Count 220 273 (140-400) K/mcL Neutrophils # 8.2 6.8 (1.6-8.9) K/mcL BMP 03/06/17 03/05/17 Range/Units 03:54 15:19 Sodium 139 139 (136-145) mEq/L Potassium 3.6 4.0 (3.5-4.5) mEq/L Chloride 105 101 (98-109) mEq/L Carbon Dioxide 25 30 H (19-29) mEq/L BUN 16 16 (8-26) mg/dL Creatinine 1.11 1.24 (0.72-1.25) mg/dL Glucose 121 H 95 (70-99) mg/dL Calcium 9.0 9.7 (8.6-10.8) mg/dL Cardiac Enzymes 03/06/17 03/06/17 03/05/17 Range/Units 09:57 03:54 22:33 Troponin I 0.02 0.04 H* 0.01 (0-0.03) ng/mL 03/05/17 Range/Units 15:19 Troponin I 0.03 (0-0.03) ng/mL Liver Function 03/05/17 Range/Units 15:19 Total Bilirubin 0.5 (0.2-1.2) mg/dL Direct Bilirubin 0.2 (0.0-0.5) mg/dL AST 18 (5-34) Units/L ALT 25 (0-55) Units/L Alkaline Phosphatase 88 (38-126) Units/L Albumin 4.0 (3.5-5.0) g/dL Impressions Chest X-Ray 03/05/17 13:57 IMPRESSION: Mild nonspecific right basilar hazy airspace opacities. D/ / Philip Bass MD / Philip Bass MD Interpreting Provider: Philip Bass MD Chest CTA 03/05/17 20:33 IMPRESSION: 1. Re- demonstration of an infrarenal abdominal aortic aneurysm, which has increased in size when compared to the previous exam, now measuring 5.1 cm maximally. Given the relatively rapid increase since the previous exam, vascular surgical consultation is recommended. 2. Unchanged right common iliac artery aneurysm, measuring 1.9 cm. 3. Unchanged ascending thoracic aortic aneurysm, measuring maximally 4.5 cm. RECOMMENDATIONS: Managing Abdominal Aortic Aneurysms 4.5-5.4 cm: Every 6 months. Recommend vascular consultation. Reference: J Vasc Surg. 2008;50(4 Suppl):S2-49 D/ / Jose Luis Wayne MD / Jose Luis Wayne, Active Medications Acetaminophen (Tylenol) 650 mg PO Q6HR PRN PRN Reason: Mild Pain (1-3) Stop: 09/04/17 20:14 Hydrocodone Bitart/Acetaminophen (Kinde 5-325 Mg) 1 tab PO Q4HR PRN PRN Reason: Moderate Pain (4-6) Stop: 09/04/17 20:14 Last Admin: 03/06/17 01:37 Dose: 1 tab Amlodipine Besylate (Norvasc) 10 mg PO DAILY [facility] PRN Reason: Protocol Stop: 09/05/17 09:31 Last Admin: 03/06/17 09:48 Dose: 10 mg Aspirin (Aspirin) 81 mg PO DAILY [facility] Stop: 09/06/17 09:01 Fenofibrate (Tricor) 162 mg PO DAILY [facility] PRN Reason: Protocol Stop: 09/05/17 09:46 Last Admin: 03/06/17 09:48 Dose: 162 mg Heparin Sodium (Porcine) (Heparin) 5,000 unit SQ Q8HR [facility] Stop: 09/05/17 00:01 Last Admin: 03/06/17 08:17 Dose: Not Given Hydralazine HCl (Hydralazine) 20 mg IVP Q6HR PRN PRN Reason: Hypertension Stop: 09/05/17 09:29 Last Admin: 03/06/17 09:48 Dose: 20 mg Labetalol HCl (Labetalol) 10 mg IVP Q1H PRN PRN Reason: htn Stop: 09/05/17 09:29 Labetalol HCl (Trandate) 200 mg PO BID [facility] Stop: 09/05/17 09:31 Last Admin: 03/06/17 09:48 Dose: 200 mg Lisinopril (Zestril) 40 mg PO DAILY [facility] PRN Reason: Protocol Stop: 09/05/17 09:31 Last Admin: 03/06/17 09:48 Dose: 40 mg Morphine Sulfate (Morphine Sulfate) 2 mg IVP Q4HR PRN PRN Reason: Severe Pain (7-10) Stop: 09/04/17 20:14 Last Admin: 03/05/17 22:37 Dose: 2 mg Naloxone HCl (Narcan) 0.4 mg IVP Q2MIN PRN PRN Reason: Opioid Reversal Stop: 09/04/17 20:14 Nitroglycerin (Nitroglycerin) 0.4 mg SL Q5MIN PRN PRN Reason: Chest Pain Stop: 09/04/17 15:19 Last Admin: 03/05/17 15:50 Dose: 0.4 mg Ondansetron HCl (Zofran) 4 mg IVP Q4H PRN; Protocol PRN Reason: Nausea Stop: 09/05/17 09:23 Last Admin: 03/06/17 09:27 Dose: 4 mg Pantoprazole Sodium (Protonix) 40 mg IVP DAILY [facility] Stop: 09/04/17 20:16 Last Admin: 03/06/17 08:17 Dose: 40 mg Prochlorperazine Edisylate (Compazine) 5 mg IVP Q8H PRN PRN Reason: Nausea Stop: 09/05/17 02:54 Last Admin: 03/06/17 03:09 Dose: 5 mg Simvastatin (Zocor) 40 mg PO HS [facility] Stop: 09/04/17 23:31 Last Admin: 03/06/17 00:37 Dose: 40 mg Temazepam (Restoril) 15 mg PO HS PRN; Protocol PRN Reason: Insomnia Stop: 09/05/17 00:21 Last Admin: 03/06/17 00:37 Dose: 15 mg Interpreting Provider: Jose Luis Wayne MD Abdomen/Pelvis CTA 03/05/17 20:50 IMPRESSION: 1. Re- demonstration of an infrarenal abdominal aortic aneurysm, which has increased in size when compared to the previous exam, now measuring 5.1 cm maximally. Given the relatively rapid increase since the previous exam, vascular surgical consultation is recommended. 2. Unchanged right common iliac artery aneurysm, measuring 1.9 cm. 3. Unchanged ascending thoracic aortic aneurysm, measuring maximally 4.5 cm. RECOMMENDATIONS: Managing Abdominal Aortic Aneurysms 4.5-5.4 cm: Every 6 months. Recommend vascular consultation. Reference: J Vasc Surg. 2009 Apr;50(4 Suppl):S2-49 D/ / Jose Luis Wayne MD / Jose Luis Wayne MD Interpreting Provider: Jose Luis Wayne MD Head CT 03/06/17 09:30 IMPRESSION: 1. No acute intracranial abnormality. D/ / Stefano Call MD / Stefano Call MD Interpreting Provider: Stefano Call MD - EKG Interpretation EKG results cardiology: personally reviewed (SR, LVH), other (12 hr tele AVG HR 79, SR.) Consult Discharge Plan - Plan Referrals: Peter Espinal DO [Primary Care Provider] -
[2017-03-06] MEDS ORDERED: Ibuprofen 400 MG TABLET PO ONE (21:14)
[2017-03-07 04:15] LABS: BUN/Creatinine Ratio 16 (6-26); Blood Urea Nitrogen 21 mg/dL (8-26); Calcium 8.7 mg/dL (8.6-10.8); Carbon Dioxide 26 mEq/L (19-29); Chloride 104 mEq/L (98-109); Glucose 97 mg/dL (70-99); Osmolality,Calculated 293 (280-300); Potassium 3.4 mEq/L (3.5-4.5); Sodium 140 mEq/L (136-145); eGFR For African Americans > 60 (> 60); eGFR For Non-African Americans 58 (> 60)
[2017-03-07] MEDS ORDERED: Regadenoson 0.4 MG/5 ML SYRINGE IVP ONE (07:43)
[2017-03-07] MEDS ORDERED: Aspirin 81 MG TAB.CHEW PO SCH (09:00)
--- NOTE | 2017-03-07 09:10 | Cardiology Progress Note ---
Date of Encounter: 03/07/17 Time of Encounter: 09:00 Assessment and Plan (1) Accelerated hypertension Current Visit: Yes Status: Acute Per Cardiology: BP 212/135 on presentation. Per pt, has been out of antihypertensives for 1 year due to losing insurance. Reports when he checks BP at home it is usually 180s/130s. Currently SBP 130's. (2) Elevated troponin Current Visit: Yes Status: Acute Per Cardiology: Negative trops x 2, then 3rd troponin was borderline 0.04 in setting of accelerated HTN, next trop negative. All other troponins negative. Suspect demand ischemia, nondiagnostic for ACS. Echo shows EF 60%, NSWMA, moderate diastolic dysfunction, severely dilated left atrium. ST pending. (3) Chest pain Current Visit: Yes Status: Acute Per Cardiology: Chest pain initially started in August when he thought he had PNA. Has been intermittent since that time, substernal without radiation. Atypical in nature, described as worse with inspiration--pleuritic. Denies any worsening with exertion. Chest pain also in setting of accelerated HTN BP 212/135 on presentation. Troponins negative x 2, 0.04, then negative. EKG shows LVH. Risk factors for CAD include HTN, HLD, tobacco abuse. ST pending. Qualifiers: Chest pain type: chest pain on breathing Qualified Code(s): R07.1 - Chest pain on breathing; R07.81 - Pleurodynia Discussion w patient/family: The assessment and plan as outlined above was discussed with the patient who expressed understanding and agreement. All questions were answered. Thank you for involving us in the care of your patient. Please call with any questions. Subjective Principal diagnosis: CP Objective Vital Signs, Last 4 Hours Pulse 03/07/17 05:30 73 Results 03/06/17 03:54 03/07/17 03:31 Lab Results - Imaging and Cardiology Stress Test: report reviewed Consult Discharge Plan - Plan Referrals: Peter Espinal DO [Primary Care Provider] -
[2017-03-07] MEDS: *HR* Heparin 5,000 UNIT/ML VIAL SQ SCH ×2 (10:18)
[2017-03-07] MEDS: amLODIPine 5 MG TABLET PO SCH (10:20)
[2017-03-07] MEDS: Lisinopril 20 MG TABLET PO SCH (10:20)
[2017-03-07] MEDS: Pantoprazole 40 MG VIAL IVP SCH (10:20)
[2017-03-07] MEDS: Fenofibrate 54 MG TABLET PO SCH (10:20)
[2017-03-07 11:08] VITALS: BP 138/90
--- NOTE | 2017-03-07 12:56 | Event Note ---
Date of Encounter: 03/07/17 Time of Encounter: 12:45 - Cardiology Event Note Stress test results noted, Gated EF 36%, however EF on echo 60%. I had lengthy discussion with patient regarding potential for LHC and he prefers option of watching and monitoring/optimizing BP control and f/u as outpatient. Cardiology will s/o, re-consult PRN, f/u scheduled. All questions answered and he agrees with plan.
--- NOTE | 2017-03-07 13:25 | Discharge Summary ---
Date of Encounter: 03/07/17 Time of Encounter: 13:19 - Discharge Diagnosis (1) Malignant essential hypertension Priority: Primary Status: Acute (2) Chest pain Priority: Secondary Status: Acute Qualifiers: Chest pain type: chest pain on breathing Qualified Code(s): R07.1 - Chest pain on breathing; R07.81 - Pleurodynia (3) HLD (hyperlipidemia) Priority: Secondary Status: Chronic Qualifiers: Hyperlipidemia type: mixed hyperlipidemia Qualified Code(s): E78.2 - Mixed hyperlipidemia (4) GERD (gastroesophageal reflux disease) Priority: Secondary Status: Chronic Qualifiers: Esophagitis presence: esophagitis presence not specified Qualified Code(s) : K21.9 - Gastro-esophageal reflux disease without esophagitis (5) Abdominal aneurysm Priority: Secondary Status: Chronic Comments: Vascular surgery follow-up as outpatient as his aneurysm is less than 5.5 cm CTA of the abdomen showed 1. Re- demonstration of an infrarenal abdominal aortic aneurysm, which has increased in size when compared to the previous exam, now measuring 5.1 cm maximally. Given the relatively rapid increase since the previous exam, vascular surgical consultation is recommended. 2. Unchanged right common iliac artery aneurysm, measuring 1.9 cm. 3. Unchanged ascending thoracic aortic aneurysm, measuring maximally 4.5 cm. - Discharge Medications Prescriptions: amLODIPine [Norvasc] 10 mg PO DAILY #10 tab Fenofibrate [Tricor] 162 mg PO DAILY #30 tab Labetalol [Trandate] 200 mg PO BID #60 tab Lisinopril [Zestril] 40 mg PO DAILY #30 tab Simvastatin [Zocor] 40 mg PO HS #30 tab Home Medications: Fenofibrate [Tricor] 162 mg PO DAILY #30 tab 03/07/17 [Rx] Labetalol [Trandate] 200 mg PO BID #60 tab 03/07/17 [Rx] Lisinopril [Zestril] 40 mg PO DAILY #30 tab 03/07/17 [Rx] Simvastatin [Zocor] 40 mg PO HS #30 tab 03/07/17 [Rx] amLODIPine [Norvasc] 10 mg PO DAILY #10 tab 03/07/17 [Rx] Allergies/Adverse Reactions: 3 Allergy/AdvReac Type Severity Reaction Status Date / Time No Known Allergies Allergy Verified 03/05/17 13:53 Procedures/tests Complete & Pending: Procedures Performed prior 72 hours Category Date Time Status CT head/brain wo con [CT] Stat Cat Scan 03/06/17 09:30 Completed NM basilio perf SPECT multi [NM] Routine Exams 03/07/17 07:00 Taken SP pharm nuclear stress Routine Y 03/07/17 08:00 Completed Date of admission: 03/05/17 21:18 Primary care physician: Peter Espinal DO Consults: 03/05/17 23:34 Consult to Cardiology [CONS] Routine Comment: Consulting Provider: Cardiology Allie Reason for Consult: Patient presents with hypertension and BP of 182/134. Patient also reports chest pain that is non-radiating and transient. Patient placed on nitro drip and received dose of hydralazine with minimal change in BP. Lopressor 25 mg to be administered now and BID. Patient has no current PCP and no hx of FL. Echocardiogram ordered. Call Completed: No 03/06/17 06:44 Consult to Vascular Surgery [CONS] Routine Consulting Provider: Vascular Surgery Allie Reason for Consult: Enlargin abdominal aortic aneurysm, also has other aneurysms Call Completed: No - Patient Status Disposition: Home, Self-Care Condition: Good - Discharge Instructions Follow Up With: Peter Espinal DO [Primary Care Provider] - Additional Instructions: Follow-up with a primary care physician within the next 7 days. Follow-up with cardiology within the next 2 weeks. Follow-up with vascular surgery within the next month. Quit smoking. Continue labetalol 200 mg twice a day (may hold if heart rate decreases), continue lisinopril and continue amlodipine . Continue simvastatin for cholesterol and fenofibrate for hypertriglyceridemia - Diet and Activity Activity: increase activity as tolerated Diet: low fat, low cholesterol Hospital course: Mr. Berrios is a 46 year old male with PMH of infrarenal AAA, HTN, HLD, tobacco abuse, TIA in 2001, GERD, gout that presented to the ED with chief complaint chest pain. He described chest pain as substernal and non-radiating and has been occurring since August intermittently. He stated the CP became worse with breathing, not associated with exertion. Patient states that his hypertension has been uncontrolled since he stopped taking his BP medications 1 year ago due to losing his insurance. He reported he now has a job and insurance but no PCP. He also stated that he becomes very dizzy with postional body or head changes to the point where he feels like the room is spinning. He also reported diaphoresis and SOB, had an episode of nausea and vomiting this AM. Started on on nitro gtt at 30mcg/min but developed a severe headache. CT scan of the head did not show any hemorrhage Hx of AAA as well. BP on presentation was 212/135 Troponin negative x 2, 0.04, then 0.02. Chest CTA revealed a 5.1 x 4.9cm infrarenal AAA, increased in size from prior exam, right common iliac aneurysm 1.9cm and ascending thoracic aortic aneurysm 4.5cm. Was evaluated by cardiology, had a stress test, the final report is not ready yet for the cardiology note mentions it had an ejection fraction of 36% and no major abnormalities although the ejection fraction on the echo was 60%. Cardiology had a discussion with the patient regarding potential left heart catheterization but he prefers to only monitor his blood pressure at the moment. She will follow up with cardiology as an outpatient. Also, he will follow up with vascular surgery as his aneurysm has increased in diameter from 4.6 cm in July 2015 up to 5.1 cm during this hospitalization. Risks of rupture explained. The patient was started on labetalol, amlodipine and lisinopril, his latest blood pressure was 138/90. Time spent discussing smoking cessation with patient: 3 to 10 minutes - Time Spent with Patient Total time spent providing and/or coordinating discharge services: Greater than 30 minutes (40 min) - Constitutional Vitals: Temp Pulse Resp BP Pulse Ox 98.0 F 78 18 138/90 99 03/07/17 09:53 03/07/17 11:16 03/07/17 11:06 03/07/17 11:06 03/07/17 11:06 General appearance: Present: cooperative, A&O X 3, pleasant, no acute distress, answers questions appropriately - Head Head exam: Present: atraumatic, normocephalic - Eye Eye exam: Present: PERRL, conjuntiva pink, sclera anicteric Pupils: Present: PERRL - Neck Neck exam general surgery: Present: supple, trachea midline. Absent: lymphadenopathy - Respiratory Respiratory exam: Present: CTAB. Absent: accessory muscle use, rales, rhonchi, wheezes - Cardiovascular Cardiovascular exam: Present: RRR, +S1, +S2. Absent: diastolic murmur, gallop, rubs, systolic murmur - GI/Abdominal GI/Abdominal exam: Present: normal bowel sounds, soft, no peritoneal signs. Absent: distended, tenderness - Extremities Exam Extremities exam: Present: warm, radial pulses palpable and symmetrical. Absent : calf tenderness, cyanotic, pedal edema - Neurological Exam Neurological exam: Present: CN II-XII intact, oriented X3, no focal deficits. Absent: pronater drift, facial droop, speech deficit - Skin Skin exam: Present: dry, intact
--- NOTE | 2017-03-10 07:54 | Electrocardiograph Report ---
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
--- NOTE | 2017-03-10 07:55 | Carotid Imaging Report ---
Carotid Duplex Patient Name:Baron Agustina Order Number:[id number] Procedure Date:03/06/2017 Date:1970Age:46 yrs Gender:Male Lt BP:125 / 81 mmHg Rt.BP:124 / 78 mmHgHeart Rate: Location:[facility] Room #: 2N08 Radiation Safety Officer:Damian Kirkland, RN, RDCS Referring MD:Shahram Euceda CNP msw:None Reading MD:Dante Hartman MD Primary Indications:Dizziness Risk Factors Yes/No Hypertension Yes Diabetes No Hypercholesterolemia Yes Smoking Current Yes Hx of TIA Yes Anticoagulants No Hx of CAD/PTCA No Previous Vascular Surgery No Impressions: The bilateral carotid arteries have minimal plaque throughout. Recommendations: Test completed on 03/06/2017 at 1:55:00 pm. Findings Carotid Duplex: Right: The right proximal common carotid artery has a PSV of 153 cm/s and a EDV of 24 cm/s. The right mid common carotid artery has a PSV of 89 cm/s and a EDV of 20 cm/s. The right distal common carotid artery has a PSV of 82 cm/s and a EDV of 21 cm/s. There is nonstenotic plaque in the right bifurcation with a PSV of 93 cm/s and a EDV of 24 cm/s. There is smooth heterogeneous plaque. There is nonstenotic plaque in the right proximal internal carotid artery with a PSV of 81 cm/s and a EDV of 33 cm/s. There is smooth heterogeneous plaque. The right mid internal carotid artery has a PSV of 73 cm/s and a EDV of 34 cm/s. The right distal internal carotid artery has a PSV of 70 cm/s and a EDV of 35 cm/s. The right eca has a PSV of 146 cm/s and a EDV of 22 cm/s. The right vertebral artery has a PSV of 37 cm/s and a EDV of 15 cm/s. Left: The left proximal common carotid artery has a PSV of 128 cm/s and a EDV of 31 cm/s. The left mid common carotid artery has a PSV of 104 cm/s and a EDV of 23 cm/s. The left distal common carotid artery has a PSV of 96 cm/s and a EDV of 33 cm/s. There is nonstenotic plaque in the left bifurcation with a PSV of 87 cm/s and a EDV of 25 cm/s. There is smooth heterogeneous plaque. There is nonstenotic plaque in the left proximal internal carotid artery with a PSV of 95 cm/s and a EDV of 26 cm/s. There is smooth heterogeneous plaque. The left mid internal carotid artery has a PSV of 106 cm/s and a EDV of 46 cm/s. The left distal internal carotid artery has a PSV of 103 cm/s and a EDV of 41 cm/s. The left eca has a PSV of 148 cm/s and a EDV of 31 cm/s. The left vertebral artery has a PSV of 55 cm/s and a EDV of 24 cm/s. Prior Study: No prior study available for comparison. Carotid Results Right PSV EDV Assessment Proximal CCA 153 24 Normal Mid CCA 89 20 Normal Distal CCA 82 21 Normal Bifurcation 93 24 Non Stenotic Plaque Proximal ICA 81 33 Non Stenotic Plaque Mid ICA 73 34 Normal Distal ICA 70 35 Normal ECA 146 22 Normal Vertebral Artery 37 15 Normal Left PSV EDV Assessment Proximal CCA 128 31 Normal Mid CCA 104 23 Normal Distal CCA 96 33 Normal Bifurcation 87 25 Non Stenotic Plaque Proximal ICA 95 26 Non Stenotic Plaque Mid ICA 106 46 Normal Distal ICA 103 41 Normal ECA 148 31 Normal Vertebral Artery 55 24 Normal Ratio's Right ICA/CCA Ratio: 0.91 ICA/CCA Values: 81/89 Left ICA/CCA Ratio: 1.02 ICA/CCA Values: 106/104 Updated by Dante Hartman MD on 03/06/2017 5:00:01 PM electronically signed on 03/06/2017 5:00:16 PM with status of Final
--- NOTE | 2017-03-10 08:09 | Nuclear Medicine Stress Report ---
Regadenoson Nuclear Stress Name: Baron Berrios Date of Study: 03/07/2017 Date: 1970 Ht: 71.0 in Medical Record#: [id number] Age: 46 Wt: 195.0 lb Gender: Male Order #: [id number] Location: [facility] Room: 2N8 Supervising Provider: Wilfrido Latif CNP Reading Physician: Philip Meyers, DO, FACC, FASNC Ordering Physician: Kam Laura CNP Primary Care Physician: None Stress Technologist: Mabel White, [employer] FINISHER, CCT, CPFT Chips Screen Tender: Laine Garg Indications: Chest Pain Impression: Pharmacologic stress ECG is non-diagnostic for ischemia due to baseline non-specific ST-T changes. Gated EF = 36%. There is GI overlap of the inferior segments on stress imaging, which makes evaluation for ischemia difficult in this territory. Otherwise, the study appeared negative for ischemia or prior infarct in the remaining territories. History: History of Smoking Stress Test Summary: Stress Test Type: Pharmacologic Regadenoson 0.4mg/5ml given IV Baseline Information: Initial Heart Rate: 69 Blood Pressure: 136/82 Stress Information: Stress Time: 4 min sec Test Terminated Due to (primary): As per protocol Maximum Blood Pressure: 136/86 Maximum Heart Rate: 95 Percent Maximum Heart Rate Achieved: 55 Double Product: 69017 METS Reached: 1 Symptoms: Shortness of breath Nuclear Summary: SPECT myocardial perfusion imaging using Tc99m Sestamibi given intravenously was performed at rest and following cardiac stress testing. The resting images were obtained following initial dose of 10.1 mCi. Following stress an additional dose of 35.2 mCi was given at peak exercise or 30 seconds post regadenoson infusion. Medication Given: Time Medication Dose Units Route Findings: Stress Note * Resting ECG demonstrated normal sinus rhythm with ST-T changes. * No baseline arrhythmias were noted. * Pharmacologic stress ECG is non-diagnostic for ischemia due to baseline non-specific ST-T changes. * No arrhythmias were noted during stress. * Patient had no chest pain during stress. Hemodynamic responses * Normal hemodynamic responses to pharmacologic stress. Study Quality * Study quality was fair. Gated EF % * Gated EF = 36%. Left Ventricle * The left ventricle is dilated. * LVEDV = 258 mL. Inferior Perfusion Rest * The inferior segments show a mild reduction in perfusion. Inferior Perfusion Stress * The inferior segments show a mild reduction in perfusion. There is GI overlap that obscures adequate visualization of the inferior segments. Lung Uptake * There is no evidence of increase lung uptake. TID ratio * TID ratio = 1.21. TID * No evidence of transient ischemic dilatation. Updated by Philip Meyers DO, AMINA, FABIANO, YECENIA on 03/07/2017 11:23:37 AM electronically signed on 03/07/2017 11:24:37 AM with status of Final
== END 2017-03-07 14:30 | disposition home or self-care (01) | DRG 305 ==
LOC: 2NNU 13:51 → EMEROO 13:51 → 2NNU 18:14
PROVIDERS: ADMIT Internal Medicine; ATTEND Internal Medicine

== ENCOUNTER 2017-08-12 20:02 | Inpatient (IN) ==
[2017-08-12] MEDS ORDERED: *HR* FentaNYL (PF) 100 MCG/2 ML VIAL IVP ONE (20:29)
--- NOTE | 2017-08-12 20:37 | Emergency Department Note ---
Disposition Clinical Impression: Abdominal aneurysm, Malignant hypertension Chest pain Qualifiers: Chest pain type: unspecified Qualified Code(s): R07.9 - Chest pain, unspecified Disposition: Admitted As Inpatient Condition: Fair Referrals: Peter Espinal DO [Primary Care Provider] - Forms: ED Satisfaction Letter Time of Disposition: 22:45 Chest Pain HPI - General Chief Complaint: ED Chest Pain Stated Complaint: Chest Pain, SI Time Seen by Provider: 08/12/17 20:10 Source: patient Limitations: no limitations Vital Signs Reviewed: Yes Nursing Notes Reviewed: Yes - History of Present Illness HPI Narrative: 47-year-old male with history of retention, hyperlipidemia, AAA measuring 5.1 back in March, presents complaining of chest pain and upper epigastric abdominal pain for the last few weeks. Patient states his pain got worse today. He rates as 8 out of 10, is mid chest and upper abdomen. Patient states it goes across his abdomen associated with some nausea. Patient reports the pain is worse with movement, worse with exertion. Patient states that his aneurysm has been stable he has been evaluated by vascular surgery in the past. Last meal chest pain was back in March. Patient states that he also has chronic pain, he expressed some thoughts of depression, stating that he just wants to not be around sometimes because of all of his pain, or nods and chronic pain syndromes. but denies suicidal ideation or homicidal ideation. Pt complaint: chest pain Onset (ago): week(s) (2) Duration: intermittent Onset: during rest, during exertion Severity: moderate Severity scale (1-10): 7 Pain Radiation: back Worsens with: inspiration, movement Associated symptoms: Reports: nausea. Denies: vomiting, diaphoresis, dyspnea, sense of impending doom - Related Data Home Medications Medication Instructions Recorded Confirmed Allopurinol [Zyloprim] 300 mg PO DAILY 08/12/17 08/12/17 Goldenseal/Echinacea Purpurea 1 each PO Q48H 08/12/17 08/12/17 [Echinacea & Goldenseal Cap] Ibuprofen [Motrin] 400 mg PO Q4H PRN 08/12/17 08/12/17 Omeprazole [PriLOSEC] 20 mg PO Q48H 08/12/17 08/12/17 Allergies Allergy/AdvReac Type Severity Reaction Status Date / Time No Known Allergies Allergy Verified 03/05/17 13:53 All systems ED: reviewed and negative except as stated. Review of Systems: As Per HPI Constitutional: Denies: fever, chills Eyes: Denies: eye pain ENT ED: Denies: ear pain Cardiovascular: Reports: as per HPI, chest pain Respiratory: Denies: cough Gastrointestinal: Reports: abdominal pain, nausea. Denies: as per HPI, vomiting , diarrhea, hematemesis, melena, hematochezia Genitourinary: Denies: urgency Musculoskeletal: Reports: as per HPI, back pain. Denies: neck pain Integumentary: Denies: rash Neurological: Denies: headache Chest Pain PMH - Past Medical History Medical history: Reports: aortic aneurysm, hyperlipidemia, hypertension, TIA Surgical history: Reports: no surgical history Psychiatric history: Reports: no psych history - Social History Smoking Status: Current every day smoker Alcohol use: Reports: none Drug use: Reports: none Physical Exam Constitutional: Middle-aged male appears in mild respiratory distress Eyes: PERRLA, sclera anicteric ENT & Mouth: MMM Neck: normal inspection, neck is supple Resp: CTA bilaterally, no resp distress CV: RRR, no m/g/r GI: normal inspection, soft, mild tenderness to palpation epigastrium, no palpable mass, or pulsatile mass. no guarding or rigidity Neuro: A&O3, CNII-XII grossly intact, MEEK Skin: on limited exam, skin intact with no rashes or lesions - General Limitations: no limitations General appearance: alert, in no apparent distress Course Course Narrative: 47-year-old male with multiple concerning signs and symptoms of chest pain, unclear epigastric abdominal pain, so that he is also having reflux symptoms and his pain has been for about 2 weeks, given that he has a 5.1 cm aneurysm however and this has grown last time that he was evaluated, I do think that he needs is CT of his chest and abdomen, he also has an elevated blood pressure, 240/112, we will try to treat his pain, if this is the reason for his elevated blood pressure, but scanning his abdomen, check basic lab work, his EKG shows no acute ischemic changes previous EKG looks similar back in February 2017. - Reevaluation(s) Reevaluation #1: Spoke with the hospitalist Dr. gillespie regarding admission of the patient for elevated blood pressure, chest pain, AAA with patient and 5.5 x 5.3, with this concern, plans for admission cart appearing drip to blood pressure stabilizes, the hospitalist express concern recommended consult with vascular surgery after consultation Dr. Hartman plan was still to admit the patient is are no indications for surgical intervention at this time. Time: 22:45 - Consultations Consultation #1: I spoke with Dr. Hartman agreed to admit the patient to the hospital service here, given the patient's lower measurement on his AAA was 4.9 degree to 5.3, is less concerned about impending rupture also given the patient has elevated blood pressure, and he will agree to consultation. Vital Signs Temperature 98.8 F 08/12/17 20:07 Pulse Rate 88 08/12/17 20:07 Respiratory Rate 18 08/12/17 20:07 Blood Pressure 224/135 08/12/17 20:07 O2 Sat by Pulse Oximetry 99 08/12/17 20:07 Temperature 98.8 F 08/12/17 20:07 Pulse Rate 86 08/12/17 22:41 Respiratory Rate 18 08/12/17 22:41 Blood Pressure 200/130 08/12/17 22:41 O2 Sat by Pulse Oximetry 97 08/12/17 22:41 Oxygen Delivery Oxygen Delivery Room Air Procedures - Ultrasound-Other Narrative: Indication: Epigastric pain with History of abdominal aortic aneurysm, Impression, the sagittal and transverse plane, performed an abdominal ultrasound that demonstrated evidence of abdominal aortic aneurysm 4.8 cm. This Interpretation: greater than normal limits, less than 5.5, no acute surgical indication Chest Pain - Differential Diagnosis Likely: stable angina, unstable angina pectoris, atypical chest pain, chest pain - Medical Records Medical records reviewed: Yes I reviewed the patient's medical records. - Lab Data Lab results reviewed: Yes I reviewed the patient's lab results. Result diagrams: 08/12/17 20:34 08/12/17 20:34 Lab Results 08/12/17 08/12/17 08/12/17 Range/Units 20:25 20:25 20:34 WBC (4.3-11.1) K/mcL RBC (4.19-5.50) M/mcL Hgb (12.9-16.9) g/dL Hct (37.5-50.1) % MCV (83.0-100.0) fL MCH (28.0-33.3) pg MCHC (31.6-35.5) g/dL RDW (11.5-14.5) % Plt Count (140-400) K/mcL MPV (9.4-12.4) fL Immature Gran % (0-4) % Seg Neutrophils % % Lymphocytes % % Monocytes % % Eosinophils % % Basophils % % Neutrophils # (1.6-8.9) K/mcL Lymphocytes # (0.6-4.6) K/mcL Monocytes # (0.0-1.3) K/mcL Eosinophils # (0.0-0.6) K/mcL Basophils # (0.0-0.2) K/mcL PT 11.3 (9.4-12.1) Seconds INR 1.1 APTT 30.7 (26.0-36.0) Seconds Sodium (136-145) mEq/L Potassium (3.5-5.1) mEq/L Chloride (98-107) mEq/L Carbon Dioxide (23-29) mEq/L BUN (6-20) mg/dL Creatinine (0.70-1.30) mg/dL Est GFR ( Amer) (> 60) Est GFR (Non-Af Amer) (> 60) BUN/Creatinine Ratio (6-26) Glucose (70-105) mg/dL Calculated Osmolality (280-300) Calcium (8.6-10.3) mg/dL Troponin I (< 0.04) ng/mL TSH (0.340-5.600) mcIU/mL Urine Color Yellow (Yellow) Urine Clarity Clear (Clear) Urine pH 6.5 (5.0-8.0) pH Units Ur Specific [place] 1.017 (1.010-1.025) Urine Protein 100 H (Neg-Trace) mg/dL Urine Glucose (UA) Normal (Normal) mg/dL Urine Ketones Negative (Negative) mg/dL Urine Blood Negative (Negative) Urine Nitrite Negative (Negative) Urine Bilirubin Negative (Negative) Urine Urobilinogen Normal (Normal) mg/dL Ur Leukocyte Esterase Moderate H (Negative) Urine Microscopic RBC 0-3 (0-3) per hpf Urine Microscopic WBC 5-15 H (0-3) per hpf Ur Squamous Epith Cells Many H (None-Few) per lpf Urine Bacteria None Seen (None-Few) per hpf Hyaline Casts None Seen (None-Few) per lpf Ur Culture Indicated? NO. (NO) Salicylates (15.0-30.0) mg/dL Urine Opiates Screen Negative (Bcxvhm=961) ng/mL Acetaminophen (10-30) mcg/mL Ur Barbiturates Screen Negative (Wivgjp=566) ng/mL Ur Phencyclidine Scrn Negative (Cutoff=25) ng/mL Ur Amphetamines Screen Negative (Pjyrbg=3236) ng/mL U Benzodiazepines Scrn Negative (Seklzi=218) ng/mL Urine Cocaine Screen Negative (Cutoff= 300) ng/mL U Marijuana (THC) Screen Negative (Cutoff = 50) ng/mL Ethyl Alcohol (0-10) mg/dL Blood Type Antibody Screen 08/12/17 08/12/17 08/12/17 Range/Units 20:34 20:34 20:34 WBC 8.4 (4.3-11.1) K/mcL RBC 5.25 (4.19-5.50) M/mcL Hgb 14.6 (12.9-16.9) g/dL Hct 44.7 (37.5-50.1) % MCV 85.1 (83.0-100.0) fL MCH 27.8 L (28.0-33.3) pg MCHC 32.7 (31.6-35.5) g/dL RDW 12.6 (11.5-14.5) % Plt Count 301 (140-400) K/mcL MPV 10.2 (9.4-12.4) fL Immature Gran % 0.4 (0-4) % Seg Neutrophils % 75.3 % Lymphocytes % 17.4 % Monocytes % 4.6 % Eosinophils % 1.7 % Basophils % 0.6 % Neutrophils # 6.3 (1.6-8.9) K/mcL Lymphocytes # 1.5 (0.6-4.6) K/mcL Monocytes # 0.4 (0.0-1.3) K/mcL Eosinophils # 0.1 (0.0-0.6) K/mcL Basophils # 0.1 (0.0-0.2) K/mcL PT (9.4-12.1) Seconds INR APTT (26.0-36.0) Seconds Sodium 135 L (136-145) mEq/L Potassium 3.3 L (3.5-5.1) mEq/L Chloride 100 (98-107) mEq/L Carbon Dioxide 28 (23-29) mEq/L BUN 17 (6-20) mg/dL Creatinine 1.07 (0.70-1.30) mg/dL Est GFR ( Amer) > 60 (> 60) Est GFR (Non-Af Amer) > 60 (> 60) BUN/Creatinine Ratio 16 (6-26) Glucose 156 H (70-105) mg/dL Calculated Osmolality 285 (280-300) Calcium 8.9 (8.6-10.3) mg/dL Troponin I (< 0.04) ng/mL TSH (0.340-5.600) mcIU/mL Urine Color (Yellow) Urine Clarity (Clear) Urine pH (5.0-8.0) pH Units Ur Specific [place] (1.010-1.025) Urine Protein (Neg-Trace) mg/dL Urine Glucose (UA) (Normal) mg/dL Urine Ketones (Negative) mg/dL Urine Blood (Negative) Urine Nitrite (Negative) Urine Bilirubin (Negative) Urine Urobilinogen (Normal) mg/dL Ur Leukocyte Esterase (Negative) Urine Microscopic RBC (0-3) per hpf Urine Microscopic WBC (0-3) per hpf Ur Squamous Epith Cells (None-Few) per lpf Urine Bacteria (None-Few) per hpf Hyaline Casts (None-Few) per lpf Ur Culture Indicated? (NO) Salicylates (15.0-30.0) mg/dL Urine Opiates Screen (Ckihhb=648) ng/mL Acetaminophen (10-30) mcg/mL Ur Barbiturates Screen (Vvbmnf=807) ng/mL Ur Phencyclidine Scrn (Cutoff=25) ng/mL Ur Amphetamines Screen (Dmlimo=3839) ng/mL U Benzodiazepines Scrn (Lfqgje=266) ng/mL Urine Cocaine Screen (Cutoff= 300) ng/mL U Marijuana (THC) Screen (Cutoff = 50) ng/mL Ethyl Alcohol (0-10) mg/dL Blood Type A POSITIVE Antibody Screen NEGATIVE 08/12/17 08/12/17 Range/Units 20:34 20:34 WBC (4.3-11.1) K/mcL RBC (4.19-5.50) M/mcL Hgb (12.9-16.9) g/dL Hct (37.5-50.1) % MCV (83.0-100.0) fL MCH (28.0-33.3) pg MCHC (31.6-35.5) g/dL RDW (11.5-14.5) % Plt Count (140-400) K/mcL MPV (9.4-12.4) fL Immature Gran % (0-4) % Seg Neutrophils % % Lymphocytes % % Monocytes % % Eosinophils % % Basophils % % Neutrophils # (1.6-8.9) K/mcL Lymphocytes # (0.6-4.6) K/mcL Monocytes # (0.0-1.3) K/mcL Eosinophils # (0.0-0.6) K/mcL Basophils # (0.0-0.2) K/mcL PT (9.4-12.1) Seconds INR APTT (26.0-36.0) Seconds Sodium (136-145) mEq/L Potassium (3.5-5.1) mEq/L Chloride (98-107) mEq/L Carbon Dioxide (23-29) mEq/L BUN (6-20) mg/dL Creatinine (0.70-1.30) mg/dL Est GFR ( Amer) (> 60) Est GFR (Non-Af Amer) (> 60) BUN/Creatinine Ratio (6-26) Glucose (70-105) mg/dL Calculated Osmolality (280-300) Calcium (8.6-10.3) mg/dL Troponin I < 0.03 (< 0.04) ng/mL TSH 0.859 (0.340-5.600) mcIU/mL Urine Color (Yellow) Urine Clarity (Clear) Urine pH (5.0-8.0) pH Units Ur Specific [place] (1.010-1.025) Urine Protein (Neg-Trace) mg/dL Urine Glucose (UA) (Normal) mg/dL Urine Ketones (Negative) mg/dL Urine Blood (Negative) Urine Nitrite (Negative) Urine Bilirubin (Negative) Urine Urobilinogen (Normal) mg/dL Ur Leukocyte Esterase (Negative) Urine Microscopic RBC (0-3) per hpf Urine Microscopic WBC (0-3) per hpf Ur Squamous Epith Cells (None-Few) per lpf Urine Bacteria (None-Few) per hpf Hyaline Casts (None-Few) per lpf Ur Culture Indicated? (NO) Salicylates < 5.0 L (15.0-30.0) mg/dL Urine Opiates Screen (Otbbid=583) ng/mL Acetaminophen < 1.0 L (10-30) mcg/mL Ur Barbiturates Screen (Ccvrha=725) ng/mL Ur Phencyclidine Scrn (Cutoff=25) ng/mL Ur Amphetamines Screen (Pfmwgx=1944) ng/mL U Benzodiazepines Scrn (Iyjhpa=102) ng/mL Urine Cocaine Screen (Cutoff= 300) ng/mL U Marijuana (THC) Screen (Cutoff = 50) ng/mL Ethyl Alcohol < 10 (0-10) mg/dL Blood Type Antibody Screen - Radiology Data Radiology results reviewed: Yes I reviewed the patient's radiology results. Chest X-Ray 08/12/17 20:25 IMPRESSION: No evidence of acute cardiopulmonary disease. D/ / Bethel Valle MD / Bethel Valle MD Interpreting Provider: Bethel Valle MD Abdomen/Pelvis CTA 08/12/17 20:30 IMPRESSION: There is continued enlargement of an infrarenal abdominal aortic aneurysm, now measuring 5.5 x 5.3 cm. Previously this measured 5.1 x 4.9 cm. No evidence of leakage is identified on today's exam. Given the size of the aneurysm, vascular surgical consultation is recommended. No evidence of thoracic or abdominal aortic dissection. RECOMMENDATIONS: Managing Abdominal Aortic Aneurysms Greater than or equal to 5.5 cm: Referral to vascular surgeon. Reference: J Vasc Surg. 2008;50(4 Suppl):S2-49 D/ / Jose Luis Wayne MD / Jose Luis Wayne MD Interpreting Provider: Jose Luis Wayne MD Chest CTA 08/12/17 20:30 IMPRESSION: There is continued enlargement of an infrarenal abdominal aortic aneurysm, now measuring 5.5 x 5.3 cm. Previously this measured 5.1 x 4.9 cm. No evidence of leakage is identified on today's exam. Given the size of the aneurysm, vascular surgical consultation is recommended. No evidence of thoracic or abdominal aortic dissection. RECOMMENDATIONS: Managing Abdominal Aortic Aneurysms Greater than or equal to 5.5 cm: Referral to vascular surgeon. Reference: J Vasc Surg. 2008;50(4 Suppl):S2-49 D/ / Jose Luis Wayne MD / Jose Luis Wayne MD Interpreting Provider: Jose Luis Wayne MD - EKG Data EKG attestation: Yes I reviewed and interpreted this EKG. EKG shows normal: sinus rhythm Rate: normal Rhythm: NSR (80 bpm NC 161 QRS 106 QTc 434 inverted T waves in V5 V6, aVL, evidence of left ventricular hypertrophy, early repolarization in V2 before unchanged from previous EKG) Interpretation: no acute changes - Core Measures AMI Core Measures Followed: No Measure Exclusions: not indicated Attestation Statement - Attestation Attestation: I, Kilo Angel DO, examined this patient [id number] and my medical decision-making was reviewed with Dr. Arthur Collins, Resident Physician. I agree with the documented findings, disposition and treatment plan as described except to the extent set forth below. Please see my progress notes for details. 47-year-old male presents to the emergency room with complaint of chest pain. Patient has has multiple other medical issues. Patient is doing her chronic pain over the last several years. Patient denies any fevers or chills nausea vomiting or diarrhea. Denies headache vision changes. Patient's main complaint at this point his pain radiates from his mid epigastrium up into his chest wall. Patient does have a history of an infrarenal aneurysm was measured at 5.1 cm in the past. Patient follows up with his primary care provider removed. Patient also noted that he felt like the pain is so bad it is getting tired of dealing with it. He denies any suicidal or homicidal ideation at this time but has thought about hurting himself in the past. He has no active plan at this point. Patient had screening laboratory workup including EKG troponin and labs completed. EKG and labs are unremarkable. CT of the chest and abdomen were completed looking for evaluation of progression of the aneurysm. Patient does have some increased size of aneurysm of 5.5 cm here today. Blood pressure was significantly elevated. Patient is going to be placed on a Cardene drip and blood pressure will be titrated appropriately. He will be admitted to the hospitalist for further evaluation of his blood pressure and in consultation with vascular surgery. No signs of active extravasation or bleeding were noted on the CT imaging of the abdomen. Patient is informed of the plan. No critical care was applied to this patient's treatment course at this time secondary to standard medical management at this point. Patient does have potential for decompensation secondary to ruptured aneurysm. Blood pressure will be titrated appropriately. Patient will be medically managed and then have psychiatric team see him after medical clearance is completed. Otherwise there is no other acute pathology noted at this time. See detailed documentation of the physical exam, medical intervention, medical decision- making and disposition and the resident physician's note.
[2017-08-12 20:43] LABS: Basophils # 0.1 K/mcL (0.0-0.2); Basophils % 0.6 %; Eosinophils # 0.1 K/mcL (0.0-0.6); Eosinophils % 1.7 %; Hematocrit 44.7 % (37.5-50.1); Hemoglobin 14.6 g/dL (12.9-16.9); Immature Granulocytes % 0.4 % (0-4); Lymphocytes # 1.5 K/mcL (0.6-4.6); Lymphocytes % 17.4 %; Mean Corpuscular HGB Conc 32.7 g/dL (31.6-35.5); Mean Corpuscular Hemoglobin 27.8 pg (28.0-33.3); Mean Corpuscular Volume 85.1 fL (83.0-100.0); Mean Platelet Volume 10.2 fL (9.4-12.4); Monocytes # 0.4 K/mcL (0.0-1.3); Monocytes % 4.6 %; Neutrophils # 6.3 K/mcL (1.6-8.9); Platelet Count 301 K/mcL (140-400); Red Blood Count 5.25 M/mcL (4.19-5.50); Red Cell Distribution Width 12.6 % (11.5-14.5); Segmented Neutrophils % 75.3 %
[2017-08-12 20:48] LABS: Bilirubin,Urine Negative (Negative); Blood,Urine Negative (Negative); Clarity,Urine Clear (Clear); Color,Urine Yellow (Yellow); Glucose,Urine (UA) Normal (Normal); Ketones,Urine Negative (Negative); Leukocyte Esterase,Urine Moderate (Negative); Nitrite,Urine Negative (Negative); PH,Urine 6.5 pH Units (5.0-8.0); Protein,Urine 100 mg/dL (Neg-Trace); Specific Gravity,Urine 1.017 (1.010-1.025); Urobilinogen,Urine Normal (Normal)
[2017-08-12 20:49] LABS: INR 1.1; Prothrombin Time 11.3 Seconds (9.4-12.1)
[2017-08-12 20:50] LABS: Bacteria,Urine None Seen per hpf (None-Few); Hyaline Casts,Urine None Seen per lpf (None-Few); RBC,Urine 0-3 per hpf (0-3); Squamous Epithelial Cell,Urine Many per lpf (None-Few)
[2017-08-12 20:51] LABS: Activated Partial Thrombo Time 30.7 Seconds (26.0-36.0)
[2017-08-12 20:55] LABS: Amphetamine Screen,Urine Negative ng/mL (Cutoff=1000); Barbiturate Screen,Urine Negative ng/mL (Cutoff=200); Benzodiazepines Screen,Urine Negative ng/mL (Cutoff=200); Cannabinoid Screen,Urine Negative ng/mL (Cutoff = 50); Cocaine Screen,Urine Negative ng/mL (Cutoff= 300); Opiate Screen,Urine Negative ng/mL (Cutoff=300); Phencyclidine Screen,Urine Negative ng/mL (Cutoff=25)
[2017-08-12 21:02] LABS: Acetaminophen < 1.0 mcg/mL (10-30); Ethanol < 10 mg/dL (0-10); Salicylate < 5.0 mg/dL (15.0-30.0)
[2017-08-12 21:03] LABS: BUN/Creatinine Ratio 16 (6-26); Blood Urea Nitrogen 17 mg/dL (6-20); Calcium 8.9 mg/dL (8.6-10.3); Carbon Dioxide 28 mEq/L (23-29); Chloride 100 mEq/L (98-107); Glucose 156 mg/dL (70-105); Osmolality,Calculated 285 (280-300); Potassium 3.3 mEq/L (3.5-5.1); Sodium 135 mEq/L (136-145); eGFR For African Americans > 60 (> 60); eGFR For Non-African Americans > 60 (> 60)
[2017-08-12 21:15] LABS: Thyroid Stimulating Hormone 0.859 mcIU/mL (0.340-5.600)
[2017-08-12] MEDS ORDERED: niCARdipine 40 MG/200 ML MLS IVC SCH (22:15)
[2017-08-12] MEDS ORDERED: *HR* OxyCODONE/APAP 10/325 TABLET PO ONE (22:53)
[2017-08-13] MEDS ORDERED: Naloxone 0.4 MG/ML INJ IVP PRN ×2 (00:21→05:50)
[2017-08-13] MEDS ORDERED: Nicotine 21 MG PATCH.TD24 TD SCH (00:30)
--- NOTE | 2017-08-13 00:36 | Internal Med History&Physical ---
<Mack Rodriguez - Last Filed: 08/13/17 01:28> Date of Encounter: 08/13/17 Time of Encounter: 00:05 Assessment and Plan (1) Hypertensive emergency Current visit: Yes Status: Acute Hypertensive emergency on presentation, 224/135 Patient has longstanding AAA which has been evaluated previously by vascular surgery and has advanced since last evaluated in 03/22 He has been having chest pains with ESPARZA which could be related to HTN The patient recieved hydralazine and was placed on Nicardipine Drip, blood pressure returned to normal level We did have some concerns about possible recreational drug use as a source of HTN though he denies it, we will check UDS We will titrate down the nicardipine drip, resume the patient's oral medications and monitor closely (2) Chest pain Current visit: Yes Status: Acute Chest pain, HTN Emergency vs. Stable angina Patient has substernal chest pain which is worsened by exertion, associated with ESPARZA, and is relieved by rest Initially, troponin is negative and EKG does not demonstrate any acute ischemic changes I will trend toponins, repeat EKG in the morning, and get a TTE Qualifiers: Chest pain type: unspecified Qualified Code(s): R07.9 - Chest pain, unspecified (3) Abdominal aneurysm Current visit: Yes Status: Chronic Infrarenal abdominal aortic aneurysm with progession Progression from 5.1 -> 5.5 in diameter since 03/2017 Given AAA, we will aggressively manage BP Vascular surgery was consulted from the ED, did not require emergent attention We will maintain NPO status pending Vascular consult (4) DVT prophylaxis Current visit: Yes Status: Acute SCDs Internal Medicine - H&P: HPI Chief complaint: Chest pain Admitted From: Emergency Dept Plans for Post Hospital Care: Home History of present illness: Mr. Berrios is a 47 year old male with history of hyperlipidemia, hypertension , AAA last evaluated in March 2017 who presents to the ED with accommodation of chest pain and upper abdominal pain that is severe 8 out of 10. The patient's is that she has been having chest pains over the past 2-3 weeks which then progressively getting worse. He describes the pain as left- sided and radiating towards his left rib cage. Pain is worse with exertion and is associated with shortness of breath. Then today when he woke up he had a upper abdominal pain which started out relatively mild progressed with severe pain towards the end of the day. He describes location of the pain is epigastric or subxiphoid in nature. He describes the pain as if someone was pushing his stomach and up and under his rib cage with radiation towards the left. He has never experienced this pain before. He does say that standing up makes the pain significantly worse where is lying down makes it feel somewhat better. He has not taken anything for this pain. The patient admits that his blood pressure is elevated because he has not been taking his home BP meds for approximately one month. His reason was that he feels as though he is young, and should not need as much medication as he is taking. He denies any nausea or vomiting, and has no changes to his bowel habits. He does admit to increased urination, having to go 12-15 times a day. He has no other acute complaints. Past Med Surg Social Fam HX - Past Medical History Medical history: aortic aneurysm, GERD, hyperlipidemia, hypertension, TIA, other Psychiatric history: no psych history - Past Surgical History Surgical History: no surgical history - Social History Smoking Status: Current every day smoker Smokeless Tobacco Status: No Alcohol use: none Drug use: none - Family History Father Adopted: Yes Mother Adopted: Yes Brother Adopted: Yes Sister Adopted: Yes Grandfather Family Member Ethnicity: Non- Living Status: Hx Family Cardiac Disorders: Yes (HD, HTN, HLD) Hx Family Endocrine Disorder: Yes (DM) Internal Medicine - H&P: Meds Allopurinol [Zyloprim] 300 mg PO DAILY 08/12/17 [History] Goldenseal/Echinacea Purpurea [Echinacea & Goldenseal Cap] 1 each PO Q48H [History] Ibuprofen [Motrin] 400 mg PO Q4H PRN 08/12/17 [History] Omeprazole [PriLOSEC] 20 mg PO Q48H 08/12/17 [History] 3 Allergy/AdvReac Type Severity Reaction Status Date / Time No Known Allergies Allergy Verified 03/05/17 13:53 All Systems PM: A 10-system review of systems was performed and is negative for pertinent findings except as documented above in the HPI. Review of systems: Constitutional: Denies fevers, chills, weight loss, generalized fatigue Head/Neck: Denies MACIAS, neck stiffness EENT: Denies vision changes/blurriness, rhinorrhea, congestion, sore throat CVS: Admits to chest pain, ESPARZA. Denies orthopnea, edema, PND Pulm: Denies SOB, cough, sputum, hemoptysis, wheezing GI: Denies abdominal pain, nausea, vomiting, diarrhea, constipation, melena, hematemasis : Denies dysuria, increased frequency, urgency, hematuria Heme: Denies ease of bleeding or bruising MSK: Denies joint pain, limited ROM Skin: Denies rashes, ulcers, color changes Neuro: Denies MACIAS, paresthesias, focal deficits, ataxia - Constitutional Vitals: Temp Pulse Resp BP Pulse Ox 98.1 F 78 14 172/130 98 08/12/17 23:46 08/12/17 23:53 08/12/17 23:46 08/12/17 23:46 08/12/17 23:46 Exam: Gen: Vitals noted. No acute distress. AAOx3 HEENT: PERRL/EOMI, oropharynx clear, Normocephalic, atraumatic Neck: Supple. No adenopathy. Cardiac: RRR, no murmur, +S1/S2 Pulmonary: CTA bilaterally, no wheezes, rales or rhonchi, equal chest expansion Abdomen: soft, mildly tender to palpation of epigastric region, no guarding Back: Nontender throughout. MSK: ROM intact, no joint swelling noted Extremities: no BLE edema, nontender calf, no cyanosis or clubbing Neuro: A&Ox3, moves all extremities, no focal deficits Psych: Appropriate mood and behavior Internal Med - H&P Results - Labs CBC & Chem 7: 08/13/17 00:46 08/13/17 00:46 <Flaquita Guzman - Last Filed: 08/13/17 05:01> Date of Encounter: 08/13/17 Internal Medicine - H&P: HPI History of present illness: Mr. Berrios is a 47 year old male All Systems PM: A 10-system review of systems was performed and is negative for pertinent findings except as documented above in the HPI. - Constitutional Vitals: Temp Pulse Resp BP Pulse Ox 98.1 F 91 16 119/81 93 08/12/17 23:46 08/13/17 04:00 08/13/17 04:00 08/13/17 04:00 08/13/17 04:00 Internal Med - H&P Results - Labs CBC & Chem 7: 08/13/17 00:46 08/13/17 00:46 Labs: Short CBC 08/13/17 Range/Units 00:46 WBC 9.3 (4.3-11.1) K/mcL Hgb 14.5 (12.9-16.9) g/dL Hct 43.5 (37.5-50.1) % Plt Count 312 (140-400) K/mcL Neutrophils # 6.6 (1.6-8.9) K/mcL BMP 08/13/17 00:46 Sodium 137 Potassium 3.4 L Chloride 102 Carbon Dioxide 28 BUN 17 Creatinine 1.16 Glucose 153 H Calcium 8.8 Cardiac Enzymes 08/13/17 Range/Units 00:46 Troponin I < 0.03 (< 0.04) ng/mL Liver Function 08/13/17 Range/Units 00:46 Total Bilirubin 0.4 (0.3-1.0) mg/dL AST 18 (13-39) Units/L ALT 30 (7-52) Units/L Alkaline Phosphatase 76 (34-104) Units/L Albumin 4.2 (3.5-5.7) g/dL - Attending Attestation I have seen and examined this pt independently. I have discussed with Resident physician Dr Rodriguez regarding the management plan, agree with the documentation.
[2017-08-13 00:54] LABS: Basophils # 0.1 K/mcL (0.0-0.2); Basophils % 0.5 %; Eosinophils # 0.2 K/mcL (0.0-0.6); Eosinophils % 1.8 %; Hematocrit 43.5 % (37.5-50.1); Hemoglobin 14.5 g/dL (12.9-16.9); Immature Granulocytes % 0.3 % (0-4); Lymphocytes # 1.9 K/mcL (0.6-4.6); Lymphocytes % 20.3 %; Mean Corpuscular HGB Conc 33.3 g/dL (31.6-35.5); Mean Corpuscular Hemoglobin 28.4 pg (28.0-33.3); Mean Corpuscular Volume 85.1 fL (83.0-100.0); Mean Platelet Volume 9.9 fL (9.4-12.4); Monocytes # 0.6 K/mcL (0.0-1.3); Monocytes % 6.2 %; Neutrophils # 6.6 K/mcL (1.6-8.9); Platelet Count 312 K/mcL (140-400); Red Blood Count 5.11 M/mcL (4.19-5.50); Red Cell Distribution Width 12.8 % (11.5-14.5); Segmented Neutrophils % 70.9 %
[2017-08-13 01:17] LABS: Alanine Aminotransferase 30 Units/L (7-52); Albumin 4.2 g/dL (3.5-5.7); Albumin/Globulin Ratio 1.4 (1.1-2.2); Alkaline Phosphatase 76 Units/L (34-104); Aspartate Amino Transferase 18 Units/L (13-39); BUN/Creatinine Ratio 15 (6-26); Bilirubin,Total 0.4 mg/dL (0.3-1.0); Blood Urea Nitrogen 17 mg/dL (6-20); Calcium 8.8 mg/dL (8.6-10.3); Carbon Dioxide 28 mEq/L (23-29); Chloride 102 mEq/L (98-107); Globulin 2.9 g/dL (2.4-3.5); Glucose 153 mg/dL (70-105); Osmolality,Calculated 289 (280-300); Potassium 3.4 mEq/L (3.5-5.1); Sodium 137 mEq/L (136-145); Total Protein 7.1 g/dL (6.4-8.9); eGFR For African Americans > 60 (> 60); eGFR For Non-African Americans > 60 (> 60)
[2017-08-13] MEDS ORDERED: *HR* OxyCODONE/APAP 7.5/325 TABLET PO PRN (01:26)
[2017-08-13] MEDS ORDERED: Lisinopril 20 MG TABLET PO SCH (01:30)
[2017-08-13] MEDS ORDERED: niCARdipine 40 MG/200 ML MLS IVC SCH (05:50)
[2017-08-13] MEDS ORDERED: Pantoprazole 40 MG VIAL IVP SCH (06:00)
[2017-08-13] MEDS ORDERED: Ketorolac 30 MG/ML VIAL IM ONE (06:50)
[2017-08-13] MEDS ORDERED: Potassium Chloride Elixir 20 MEQ/15 ML UDC PO ONE (08:02)
[2017-08-13] MEDS: Nicotine 21 MG PATCH.TD24 TD SCH (08:31)
[2017-08-13] MEDS: Pantoprazole 40 MG VIAL IVP SCH ×2 (08:31→17:18)
[2017-08-13] MEDS: Lisinopril 20 MG TABLET PO SCH ×2 (08:32→19:17)
[2017-08-13] MEDS: NIFEdipine XL (24 HR) 30 MG TAB.ER.24 PO SCH (08:32)
--- NOTE | 2017-08-13 08:34 | Vascular/Endovasc Consult Note ---
Date of Encounter: 08/13/17 Time of Encounter: 08:15 Assessment and Plan (1) Abdominal aneurysm Current Visit: Yes Status: Chronic The pathophysiology and natural history of abdominal aortic aneurysms was discussed with the patient and all questinos were answered. The patient has a 5.3cm infrarenal abdominal aortic aneurysm. His CT reveals no evidence of rupture. He appears to be an appropriate candidate for endograft repair. His images will be reviewed for graft sizing. He may be discharged when clinically stable. He will follow-up in clinic next week. The patient will be scheduled for elective repair in the next 1-2 weeks. (2) Malignant essential hypertension Current Visit: No Status: Acute Improves blood pressure today. (3) HLD (hyperlipidemia) Current Visit: No Status: Chronic He was counseled regarding atherosclerotic risk factor reduction. Qualifiers: Hyperlipidemia type: mixed hyperlipidemia Qualified Code(s): E78.2 - Mixed hyperlipidemia (4) Tobacco abuse Current Visit: Yes Status: Acute He was counseled regarding smoking cessation. - History of Present Illness Consult date: 08/13/17 Requesting physician: Arthur Collins Consult reason: AAA Chief complaint: Hypertension, abdominal pain History of present illness: Mr. Berrios is a 47 year old male with a history of hypertension, hyperlipidemia and tobacco abuse. The patient has a known infrarenal abdominal aortic aneurysm. The patient present to [facility] ER last night with complaints of hypertension and upper abdominal pain. The patient also reports intermittent chest pain and shortness of breath. He states that he has previously been evaluated with a stress. He was admitted to the ICU for hypertensive emergency. He also underwent a CT scan and was noted to have an increase in the size of his aneurysm. Vascular surgery was consulted for further evaluation. He currently reports that he is more comfortable since admission. He denies chest pain or shortness of breath. Past Med Surg Social Fam HX - Past Medical History Medical history: aortic aneurysm, GERD, hyperlipidemia, hypertension, TIA, other Psychiatric history: no psych history - Past Surgical History Surgical History: no surgical history - Social History Smoking Status: Current every day smoker Smokeless Tobacco Status: No Alcohol use: none Drug use: none - Family History Father Adopted: Yes Mother Adopted: Yes Brother Adopted: Yes Sister Adopted: Yes Grandfather Family Member Ethnicity: Non- Living Status: Hx Family Cardiac Disorders: Yes (HD, HTN, HLD) Hx Family Endocrine Disorder: Yes (DM) Medications and Allergies Allopurinol [Zyloprim] 300 mg PO DAILY 08/12/17 [History] Goldenseal/Echinacea Purpurea [Echinacea & Goldenseal Cap] 1 each PO Q48H [History] Ibuprofen [Motrin] 400 mg PO Q4H PRN 08/12/17 [History] Omeprazole [PriLOSEC] 20 mg PO Q48H 08/12/17 [History] 3 Allergy/AdvReac Type Severity Reaction Status Date / Time No Known Allergies Allergy Verified 03/05/17 13:53 All Systems Review: A 10-system review of systems was performed and is negative for pertinent findings except as documented above in the HPI. - Constitutional Constitutional: no chills, no fever(s) Exam Vital Signs, Last 4 Hours Temp Pulse Resp BP Pulse Ox 08/13/17 08:00 76 18 139/102 96 08/13/17 07:22 97.5 F L 08/13/17 07:00 82 18 149/95 93 08/13/17 05:56 88 17 149/96 93 08/13/17 05:37 98.2 F 88 17 144/98 93 08/13/17 05:00 86 16 144/98 93 General: Present: Conversant, No Apparent Distress HEENT: Present: Atraumatic, Pupils equal Neck: Absent: JVD, Lymphadenopathy, Left Carotid bruit, Right Carotid bruit Cardiac: Present: Reg Rate and Rhythm, Normal S1 and S2, No Murmur Lungs: Present: Normal Breath Sounds, No Wheeze, Rales, Rhonchi Neuro: Present: Alert and responsive, No focal deficits noted, Cranial nerves grossly intact, Motor nerves grossly intact, Sensory nerves grossly intact Abdomen: Present: Soft, Non-tender. Absent: Masses Vascular: Present: Normal capillary refill, Pulse, normal. Absent: Cyanosis, Edema Skin: Present: No rashes noted on visualized skin. Absent: Wound/ulcer(s) Consult Discharge Plan - Plan Referrals: Peter Espinal DO [Primary Care Provider] -
[2017-08-13] MEDS ORDERED: NIFEdipine XL (24 HR) 30 MG TAB.ER.24 PO SCH (09:00)
[2017-08-13] MEDS: *HR* OxyCODONE/APAP 7.5/325 TABLET PO PRN ×2 (17:18→23:04)
--- NOTE | 2017-08-13 17:55 | Event Note ---
Date of Encounter: 08/13/17 Time of Encounter: 08:40 47-year-old male with history of hypertension, tobacco abuse, abdominal aortic aneurysm, is admitted with chest and abdominal pain. Patient was noted to have hypertensive urgency with uncontrolled hypertension with systolic greater than 200. He was previously started on IV nicardipine drip, which is now turned off and started on oral medications. Patient is noted to be noncompliant with antihypertensives for at least a month. Seen and examined at bedside. Reports periumbilical and lower abdominal pain. Improved chest pain. No shortness of breath, palpitations, dizziness. Chest-S1, S2 heard. Lungs are clear to auscultation Abdomen-soft, obese, mild tenderness in central abdomen. No guarding or rigidity. CT angiogram of chest/abdomen/pelvis showed no acute chest abnormality, infrarenal abdominal aortic aneurysm, now measuring 5.5 x 5.3 cm. Previously this measured 5.1 x 4.9 cm. Hypertensive urgency-off nicardipine drip. Blood pressure fairly well controlled. Resume home medications. Low-sodium diet. Chest pain-currently resolved. Continue telemetry monitoring. Serial troponins remained negative. Follow-up echocardiogram. Abdominal aortic aneurysm-slightly increased in size from previous CT scan. Vascular surgery consult appreciated-recommend outpatient management with endograft repair. Abdominal pain may be related to aneurysm but no other etiology identified at this time. Continue pain control with oral oxycodone. Patient is stable to be transferred to telemetry unit.
--- NOTE | 2017-08-13 19:52 | Electrocardiograph Report ---
[address] [place] [address] Test Date: 2017-08-12 Pat Name: Baron Berrios Department: 104 Room: 10 Gender: M Gusset Stitcher: : 1970 Requested By: Arthur Collins Order Number: [id number] Reading MD: Max Chang MD Measurements Intervals [place] Rate: 88 P: 50 ID: [id number] QRS: -38 QRSD: 106 T: 129 QT: 389 QTc: 434 Interpretive Statements SINUS RHYTHM LEFT ATRIAL ENLARGEMENT MARKED LEFT AXIS DEVIATION LEFT VENTRICULAR HYPERTROPHY AND ST-T CHANGE Poor R wave progression Electronically Signed On 08-13-2017 19:50:55 EST by Max Chang MD
[2017-08-14 04:46] LABS: BUN/Creatinine Ratio 14 (6-26); Blood Urea Nitrogen 15 mg/dL (6-20); Calcium 8.6 mg/dL (8.6-10.3); Carbon Dioxide 25 mEq/L (23-29); Chloride 106 mEq/L (98-107); Glucose 117 mg/dL (70-105); Magnesium 1.9 mg/dL (1.6-2.6); Osmolality,Calculated 286 (280-300); Potassium 3.6 mEq/L (3.5-5.1); Sodium 137 mEq/L (136-145); eGFR For African Americans > 60 (> 60); eGFR For Non-African Americans > 60 (> 60)
[2017-08-14] MEDS: Pantoprazole 40 MG VIAL IVP SCH (05:47)
[2017-08-14] MEDS: *HR* OxyCODONE/APAP 10/325 TABLET PO PRN ×2 (05:48→12:32)
[2017-08-14] MEDS: NIFEdipine XL (24 HR) 30 MG TAB.ER.24 PO SCH (08:39)
[2017-08-14] MEDS: Nicotine 21 MG PATCH.TD24 TD SCH (08:40)
[2017-08-14] MEDS: Lisinopril 20 MG TABLET PO SCH (08:40)
[2017-08-14 11:14] VITALS: BP 128/77
--- NOTE | 2017-08-14 11:50 | Discharge Summary ---
Date of Encounter: 08/14/17 Time of Encounter: 11:48 - Discharge Diagnosis (1) Hypertensive urgency Priority: Primary Status: Acute (2) Abdominal pain Priority: Primary Status: Acute Qualifiers: Abdominal location: periumbilical Qualified Code(s): R10.33 - Periumbilical pain (3) Tobacco abuse Priority: Secondary Status: Chronic (4) Abdominal aneurysm Priority: Primary Status: Chronic (5) HTN (hypertension) Priority: Secondary Status: Chronic Qualifiers: Hypertension type: essential hypertension Qualified Code(s): I10 - Essential (primary) hypertension (6) HLD (hyperlipidemia) Priority: Secondary Status: Chronic Qualifiers: Hyperlipidemia type: unspecified Qualified Code(s): E78.5 - Hyperlipidemia , unspecified - Discharge Medications Prescriptions: OxyCODONE/APAP 10/325 [Percocet 10/325 MG] 1 each PO Q6HR PRN 5 Days #20 tablet PRN Reason: Pain Labetalol [Trandate] 100 mg PO BID #60 tablet Lisinopril [Zestril] 40 mg PO BID #120 tablet Nicotine Patch [Nicoderm] 21 mg TD DAILY #30 patch.td24 NIFEdipine XL (24 HR) [Procardia XL] 30 mg PO DAILY #30 tab.er.24 Home Medications: Allopurinol [Zyloprim] 300 mg PO DAILY 08/12/17 [History] Goldenseal/Echinacea Purpurea [Echinacea & Goldenseal Cap] 1 each PO Q48H [History] Ibuprofen [Motrin] 400 mg PO Q4H PRN 08/12/17 [History] Omeprazole [PriLOSEC] 20 mg PO Q48H 08/12/17 [History] Labetalol [Trandate] 100 mg PO BID #60 tablet 08/14/17 [Rx] Lisinopril [Zestril] 40 mg PO BID #120 tablet 08/14/17 [Rx] NIFEdipine XL (24 HR) [Procardia XL] 30 mg PO DAILY #30 tab.er.24 08/14/17 [Rx] Nicotine Patch [Nicoderm] 21 mg TD DAILY #30 patch.td24 08/14/17 [Rx] OxyCODONE/APAP 10/325 [Percocet 10/325 MG] 1 each PO Q6HR PRN 5 Days #20 tablet 08/14/17 [Rx] Allergies/Adverse Reactions: 3 Allergy/AdvReac Type Severity Reaction Status Date / Time No Known Allergies Allergy Verified 03/05/17 13:53 Procedures/tests Complete & Pending: Procedures Performed prior 72 hours Category Date Time Status ECG 12 lead ECG [ECG] AM 0600 Y 08/13/17 06:00 Ordered EV limited echocardiogram Routine Y 08/13/17 01:25 Completed Date of admission: 08/12/17 23:05 Primary care physician: Peter Espinal DO Discharging clinician: Shazia Hernandez Anticipated date of discharge: 08/14/17 - Patient Status Disposition: Home, Self-Care Condition: Good Functional capacity at discharge: independent ambulation Overall status at discharge: patient is progressing back to baseline - Discharge Instructions Instructions: Chest Pain (DC), Chronic Hypertension (DC) Follow Up With: Peter Espinal DO [Primary Care Provider] - 08/21/17 1:00 pm (Please follow up as schedule...) Additional Instructions: F/up with VASCULAR SURGERY- as scheduled - Diet and Activity Activity: resume usual activities as tolerated Diet: low fat, low cholesterol, low salt diet Hospital course: Mr. Berrios is a 47 year old male with the above medical problems who was admitted with chest and abdominal pain. Patient was noted to have uncontrolled hypertension with systolic blood pressure greater than 200 mm Hg at admission. He was previously started on IV Cardene drip, which was gradually weaned off and patient was restarted on his home antihypertensive regimen. Patient was noncompliant with blood pressure medications for at least the last 1-2 months as he felt he did not need them. Due to history of abdominal aortic aneurysm and abdominal pain with uncontrolled hypertension, CT angiogram of abdomen and pelvis was done in the emergency room, which showed slight enlargement of an infrarenal aneurysm 5.5 x 5.3 cm, which was previously 5.1 x 4.9 cm. Vascular surgery was consulted and recommended outpatient follow-up for possible endograft repair. Telemetry monitoring and serial troponins remained negative for ACS. Echocardiogram was done which showed preserved ejection fraction, moderate concentric LVH. Medication compliance was reinforced. Patient is also an active smoker, smoking cessation counseling was done for 4 minutes, patient is motivated to try and quit smoking and requested for nicotine transdermal patches. He is medically stable for discharge. Time spent discussing smoking cessation with patient: 3 to 10 minutes (4min) - Time Spent with Patient Total time spent providing and/or coordinating discharge services: Greater than 30 minutes (40 min) - Constitutional Vitals: Temp Pulse Resp BP Pulse Ox 99.1 F 90 16 128/77 95 08/14/17 11:08 08/14/17 11:08 08/14/17 11:08 08/14/17 11:08 08/14/17 11:08 General appearance: Present: A&O X 3, answers questions appropriately - Cardiovascular Cardiovascular exam: Present: RRR, +S1, +S2. Absent: diastolic murmur, gallop, rubs, systolic murmur
== END 2017-08-14 16:01 | disposition home or self-care (01) | DRG 305 ==
LOC: EMEROO 20:02 → ICNU 23:05 → SUATTDRO 23:05 → ICNU 23:43 → 2ANU 08-14 06:52
PROVIDERS: ADMIT Family Medicine; ATTEND Internal Medicine

== ENCOUNTER 2017-08-27 06:50 | Inpatient (IN) ==
[2017-08-27] MEDS ORDERED: CeFAZolin Syr 2,000MG/20 ML 2,000 MG/20 ML SYRINGE IVPB ONE (07:19)
[2017-08-27] MEDS ORDERED: Albuterol 2.5 MG/3 ML NEBULIZER IH ONE (07:21)
[2017-08-27] MEDS ORDERED: Ringers Solution, Lactated 1,000 ML IVC SCH (07:30)
--- NOTE | 2017-08-27 07:31 | History & Physical Report ---
Date of Encounter: 08/27/17 Time of Encounter: 07:30 24 Hour HP Update - Instructions Instructions: If the History and Physical is less than 30 days old and was completed prior to A.M. admission and or procedure and has NOT been updated on calendar day of procedure please complete this update prior to performing procedure. - Update Patient reports changes in Medical Condition: No Changes in examination, assessment, or condition: No Changes in Medication: No Preop tests/diagnostics Reviewed: Yes Surgery Remains Indicated: Yes Consent for Planned Operative Procedure(s) Verified: Yes - Pre-Operative Checklist Preoperative Checklist Indicated: Yes Prophylactic Antibiotic Ordered: Yes (Vancomycin due to MRSA risk) Home Medications Include Beta Bill: No Beta Bill Taken Today (Day of Surgery): No Beta Bill Taken Yesterday (Day Prior to Surgery): No Is VTE Prophylaxis Indicated?: Yes
[2017-08-27] MEDS ORDERED: Acetaminophen IV 1,000 MG/100 ML INFUS..BTL IVPB ONE (08:10)
--- NOTE | 2017-08-27 08:17 | Anesthesia Evaluation PreOp ---
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 History: CVA (difficulty with short term memory) Other Medical History: GERD, Other (5.5cm infrarenal AAA, gout) Anesthesia History: No Prior Anesthetic Complications, Past Anesthesia ( microdiscectomy) Alcohol Use: rarely Drug use: none Medications and Allergies Ascorbate Calcium [Vitamin C] 500 mg PO BID 08/27/17 [History] Aspirin [Lo-Dose Aspirin EC] 81 mg PO DAILY 08/27/17 [History] Cyanocobalamin (Vitamin B-12) [Vitamin B-12] 1,000 mcg PO DAILY 08/27/17 [ History] Labetalol [Trandate] 100 mg PO BID 08/27/17 [History] Lisinopril [Zestril] 40 mg PO BID 08/27/17 [History] Multivitamin [One Daily Essential] 1 tab PO DAILY 08/27/17 [History] Nicotine Patch [Nicoderm] 21 mg TD DAILY 08/27/17 [History] Nicholson-3/Dha/Epa/Fish Oil [Fish Oil 1,000 mg Softgel] 1 cap PO DAILY 08/27/17 [ History] Omeprazole [PriLOSEC] 20 mg PO DAILY 08/27/17 [History] Potassium Gluconate [Potassium Gluconate] 99 mg PO BID 08/27/17 [History] Simvastatin [Zocor] 40 mg PO QPM 08/27/17 [History] 3 Allergy/AdvReac Type Severity Reaction Status Date / Time No Known Allergies Allergy Verified 08/27/17 07:40 - Meds/Allergy Pre-op Review Medications Reviewed: Yes Allergies Reviewed: Yes Beta Blockers on Current Med List: Yes If Beta Blockers taken, Date/Time (Last Dose taken): 232908/26/17 Anesthesia Results - Labs Laboratory Tests 07/26/15 08/12/17 08/13/17 08:25 20:34 00:46 WBC 9.3 Hgb 14.5 Hct 43.5 Plt Count 312 PT 11.3 INR 1.1 APTT 30.7 Sodium Potassium Chloride Carbon Dioxide BUN POC Creatinine 1.30 Creatinine Glucose POC Glucose 08/13/17 08/14/17 11:23 04:12 WBC Hgb Hct Plt Count PT INR APTT Sodium 137 Potassium 3.6 Chloride 106 Carbon Dioxide 25 BUN 15 POC Creatinine Creatinine 1.05 Glucose 117 H POC Glucose 183 H - Imaging EKG: report reviewed (INUS RHYTHM LEFT ATRIAL ENLARGEMENT MARKED LEFT AXIS DEVIATION LEFT VENTRICULAR HYPERTROPHY AND ST-T CHANGE Poor R wave progression Electronically Signed On 08-13-2017 19:50:55 EST by Max Chang MD) Anesthesia Exam O2 Sat Height 1.8 m Weight 87.997 kg O2 Sat by Pulse Oximetry 96 Vital Signs Temp Pulse Resp BP Pulse Ox 98.1 F 74 18 151/101 96 08/27/17 07:08 08/27/17 07:08 08/27/17 07:08 08/27/17 07:08 08/27/17 07:08 - HEENT Pupil (Motor): Pupils equal, EOMI Mallampati: III (+ trejo) Teeth: Edentulous (upper) Oral Opening: Greater than 3 - BALANCE CLERK LOC: Oriented BALANCE CLERK Motor: Normal RUE, Normal LUE, Normal RLE, Normal LLE, Normal Face BALANCE CLERK Sensory: Normal: RUE, LUE, RLE, LLE, Face - Cardiac Rhythm: Regular - Pulmonary Breath Sounds: bilateral Clear Respiratory Effort: Symmetrical Anesthesia Assess/Plan ASA Score: 3 (AAA, HTN, hyperlipidemia, smoker, CVA) Anesthetic Plan: General (r/b/a discussed, questions answered, consent obtained) Monitoring Plan: Standard Monitors, A-Line Recovery Plan: PACU
[2017-08-27] MEDS ORDERED: Lidocaine -MPF 2% 2 ML VIAL ONE ×2 (08:28→10:02)
[2017-08-27] MEDS ORDERED: *HR* Propofol 200 MG/20 ML VIAL IVP ONE (08:28)
[2017-08-27] MEDS ORDERED: Heparin 1,000 UNITS/500 mL 500 ML ONE ×2 (08:37→11:48)
[2017-08-27] MEDS ORDERED: *HR* Midazolam HCl 2 MG/2 ML VIAL ONE (08:38)
[2017-08-27] MEDS ORDERED: *HR* FentaNYL (PF) 100 MCG/2 ML VIAL ONE ×2 (08:38→10:00)
[2017-08-27] MEDS ORDERED: Heparin 1,000 UNITS/500 mL 1,500 ML ONE (08:46)
[2017-08-27] MEDS ORDERED: Vancomycin 1,000 MG VIAL ONE (08:48)
[2017-08-27] MEDS ORDERED: Vancomycin 1,000 MG, Sodium Chloride IRRigation 1,000 ML IR ONE (08:55)
[2017-08-27] MEDS ORDERED: Isovue-300 150 ML INFUS..BTL IV ONE (09:44)
[2017-08-27] MEDS ORDERED: *HR* Rocuronium Bromide 50 MG/5 ML VIAL ONE ×2 (10:02→11:33)
[2017-08-27] MEDS ORDERED: Esmolol 100 MG/10 ML VIAL IVP ONE (10:17)
[2017-08-27] MEDS ORDERED: Ondansetron 4 MG/2 ML VIAL ONE (10:25)
[2017-08-27] MEDS ORDERED: Dexamethasone 4 MG/ML VIAL ONE (10:25)
[2017-08-27] MEDS ORDERED: *HR* OxyCODONE Immed Rel 5 MG TABLET PO PRN (10:31)
[2017-08-27] MEDS ORDERED: MORPHINE SUL Oral CONC 10 MG/0.5 ML ORAL.SYG SL PRN (10:31)
[2017-08-27] MEDS ORDERED: *HR* Labetalol 20 MG/4 ML SYRINGE IVP PRN (10:32)
[2017-08-27] MEDS ORDERED: *HR* Promethazine 25 MG/ML VIAL IVP PRN (10:32)
[2017-08-27] MEDS ORDERED: cloNIDine HCl 0.1 MG TABLET PO ONE (10:32)
[2017-08-27] MEDS ORDERED: *HR* PHENYLEPHRINE 1,000 MCG/10 ML SYRINGE IVP ONE (10:41)
[2017-08-27] MEDS ORDERED: EPHEDrine 50 MG/ML VIAL ONE (10:47)
[2017-08-27] MEDS ORDERED: *HR* Remifentanil 2 MG VIAL IVP ONE (10:57)
[2017-08-27] MEDS ORDERED: *HR* Heparin 5,000 UNIT/ML VIAL ONE (11:26)
[2017-08-27] MEDS ORDERED: Neostigmine Methylsulfate 3 MG/3 ML SYRINGE ONE (12:20)
--- NOTE | 2017-08-27 12:59 | Operative Note ---
Date of procedure: 08/27/17 Pre-op diagnosis: Abdominal aortic aneurysm Post-op diagnosis: same Procedure: 1. Introduction of catheter into the aorta via right common femoral artery. 2. Introduction of catheter into the aorta via left common femoral artery. 3. Right femoral vessel exposure for endograft placement. 4. Left femoral vessel exposure for endograft placement. 5. Endograft repair of abdominal aortic aneurysm with Cook Zenith graft and two docking limbs including radiologic supervision and interpretation. Complications: None Anesthesia: GETA Surgeon: Dante Hartman Was there an surgeon assistant present: Yes Manager Helpdesk: Hema Kingsley Estimated blood loss (cc): 50 Specimen: None Condition: stable Disposition: PACU Procedure in Detail: Indications: The patient is a 47 year old male with a history of hypertension, hyperlipidemia and tobacco abuse. He was found to have a 5.5cm infrarenal abdominal aortic aneurysm. His anatomy is acceptable for endograft placement. Surgery is recommended to reduce his risk of rupture. Procedure: The patient was identified, brought to the operating room and placed in the supine position on the operating room table. After induction of general endotracheal anesthesia, the patient was cleaned and draped in normal sterile fashion. Oblique incisions were made over both groins sharply. Hemostasis was obtained with electrocautery. Using blunt and sharp and electrocautery dissection, the bilateral common, deep and superficial femoral arteries were dissected circumferentially and surrounded with Vesseloops. At this point, the patient received 5000 units of heparin intravenously and then bilateral femoral punctures with large-bore needles were performed. Bentson wires were advanced into the aorta under fluoroscopic view. Given the anatomy, the main body was selected to be the right side of the patient. The needles were exchanged for bilateral #8-Mauritian sheaths and a long Pigtail catheter was advanced over the right wire into the aortic arch. The wire was replaced with a Lunderquist wire. The catheter was removed and repositioned in the suprarenal aorta via the left femoral artery. The main body was inserted over the Lunderquist wire with the contralateral limb being in the anterolateral position. An aortogram was then performed at the level of the renal artery. The graft was positioned just inferior to the renal arteries and the first 2 segments were deployed. Again an aortogram revealed adequate infrarenal placement. The graft was then further opened to the contralateral limb exposed. A final angiogram was performed confirming adequate infrarenal placement. The suprarenal stent was deployed in the usual fashion. The contralateral limb was then selected with a Bentson wire using a guiding catheter. Intragraft placement of the wire was confirmed by placing the pigtail and spinning it freely as well as injecting a small amount of contrast. An oblique view of the pelvis was performed with contrast to size the left extension limb. The left sheath was exchanged for the extension limb which was advanced under fluoroscopic view and positioned. It was then deployed. The introducer was removed. The remaining portion of the main body was deployed, the top cap was retrieved and the introducer was removed. An oblique view of the right pelvis was performed in a similar fashion to determine the length of the graft on the right. The graft extension was then advanced on the right and positioned in the usual fashion. Upon completion of the graft docking limb extension, a Coda balloon was then advanced into the graft proximal and distal endpoints as well as overlap were expanded with gentle pressure. The balloon was left in the suprarenal position and a Flush catheter was placed in the suprarenal aorta. A Flush completion angiogram revealed no evidence of an endoleak. Tension was applied to the Vesseloops in the groin. The bilateral sheaths were then removed. After confirming hemodynamic stability, the wires were then removed. The bilateral arteriotomies were repaired with a running 6-0 Prolene. Antibiotic irrigation was infused into the groin. Platelet rich and platelet poor plasma were infused into the incisions. The bilateral groins were closed with a single layer of 2-0 Vicryl followed by two layers of 3-0 Vicryl followed by a layer of 3-0 monocryl in the subcuticular region. Sterile dressings were applied. The patient was then extubated and taken to the recovery room in stable condition.
--- NOTE | 2017-08-27 13:05 | Anesthesia Evaluation Post Op ---
Date of Encounter: 08/27/17 Time of Encounter: 13:04 - Vital Signs Vital Signs: Vital Signs/O2 Sat, Most Current Temp Pulse Resp BP Pulse Ox 97.4 F L 68 14 143/92 97 08/27/17 12:43 08/27/17 12:43 08/27/17 12:43 08/27/17 12:43 08/27/17 12:43 - Lungs Lungs: Clear Ascult./Percussion - Airway Airway: Non-obstructed - Cardiovascular Regular Rate - Mental Status Mental Status: Alert & Oriented, Answers Appropriately - Pain Pain Scale: 3 Pain Scale used: Numeric (1 - 10) - Nausea Vomiting Nausea Vomiting: Not Present - Hydration Hydration: Ice chips, Lamar catheter - Discharge PostOp Status: Transfer Patient to floor
[2017-08-27] MEDS ORDERED: Naloxone 0.4 MG/ML INJ IVP PRN (14:44)
[2017-08-27] MEDS ORDERED: *HR* HYDROcodone/Acet 5/325 mg TABLET PO PRN (14:44)
[2017-08-27] MEDS ORDERED: Acetaminophen 325 MG TABLET PO PRN (14:44)
--- NOTE | 2017-08-27 15:18 | Anesthesia Procedures ---
Date of Encounter: 08/27/17 Time of Encounter: 11:00 Procedures: Anesthesia - Arterial Line Consent obtained: written consent Time out performed: Yes Sedation: Versed (mg): 2 Sedation: Fentanyl (mcg): 100 Supplemental Oxygen via Nasal Cannula (L/min): 3 Local Anesthetic: Lidocaine 1% Size (Gauge): 20 Length (inches): 1 3/4 Technique Used: sterile prep, guide wire technique Post-Procedure: line taped into place, dry sterile dressing placed Patient tolerated procedure: well, no complications Complications: none Site: Radial L Vitals: see nursing notes
[2017-08-27] MEDS: *HR* Metoprolol 5 MG/5 ML VIAL IVP SCH ×2 (16:58→23:03)
[2017-08-27] MEDS: Ketorolac 15 MG/ML VIAL IVP SCH ×2 (16:58→23:02)
[2017-08-27] MEDS: CeFAZolin Premix DUPLEX 2,000 MG/50 ML BAG IVPB SCH ×2 (16:59→23:04)
[2017-08-27] MEDS: Nicotine 21 MG PATCH.TD24 TD SCH (16:59)
--- NOTE | 2017-08-27 17:23 | Operative Note ---
Date of procedure: 08/27/17 Pre-op diagnosis: Abdominal aortic aneurysm Post-op diagnosis: same Procedure: Repair of abdominal aortic aneurysm using a Zenith Cook endovascular stent graft device with 2 docking limbs Bilateral open femoral exposure Abdominal aortograms with radiologic supervision and interpretation Complications: None Anesthesia: GETA Surgeon: Dante Hartman Co-Surgeon: Hema Kingsley Was there an political science research assistant present: No Estimated blood loss (cc): 100 Specimen: None Condition: stable Disposition: PACU Procedure in Detail: History Baron Berrios is a 47-year-old white male with abdominal aortic aneurysm. Because of the size of the aneurysm surgery was recommended and patient now comes for endovascular repair. Procedure After informed consent was obtained the patient was taken to the operating room. General endotracheal anesthesia was established. The abdomen groin and thighs were sterilely prepped and draped. A timeout protocol was observed. A 2 surgeon approach was utilized for this procedure due to the patient's comorbid conditions. Also because of the need for complex intraoperative decision-making and to minimize complications associated with prolonged anesthesia and blood loss. The femoral arteries were exposed through oblique incisions in the groin simultaneously. Control waS obtained of the vessel. The vessels were then punctured with 18-gauge needles and a guidewire was inserted. This was followed by an 8 [place] sheath and dilator. The dilator was removed and the sheath was aspirated and flushed. Under fluoroscopic control a pigtail catheter was inserted via the right side and a stiff wire was then inserted and marked for length and the descending thoracic aorta. The pigtail catheter was then placed via the left side. An abdominal aortogram was obtained. Measurements were taken. The main body was placed via the right side. The main body was a Zenith Cook stent graft that was a 28 x 82 mm device. Next the docking limb was cannulated from the left side. After appropriate measurement and ascertaining that the wire was in the correct position a spiral Z Limb stent graft was then placed on the left side and this measured 13 x 107 mm. Attention was then directed back to the main body. The top Was captured after the main body was totally deployed. A marker pigtail catheter was then reinserted and an angiogram was obtained. A third and final component was then placed on the right side into the right common iliac artery. This is a 20 x 74 mm spiral Z Limb. A 32 mm Almazan balloon was then passed first on the right side than on the left side and the graft was gently expanded and molded. Then a final completion aortogram was obtained. This demonstrated appropriate position of the stent graft with preservation of the bilateral renal arteries and bilateral iliac artery bifurcations. There were no findings of type I or type III endoleak. With this done the wires and catheters were removed. The puncture sites at the groin were repaired with 6-0 Prolene. The wounds were irrigated with antibiotic containing solution. The incisions were then closed in layers using absorbable suture. There were no intraoperative complications. The patient tolerated the procedure well. The patient was extubated on the table and then transported to the recovery room in hemodynamically stable condition.
[2017-08-27] MEDS: Ascorbic Acid 500 MG TABLET PO SCH (19:58)
[2017-08-27] MEDS: Lisinopril 20 MG TABLET PO SCH (19:59)
[2017-08-27] MEDS: Potassium Gluconate 99 MG PO SCH (21:12)
[2017-08-27] MEDS: *HR* OxyCODONE Immed Rel 5 MG TABLET PO PRN (21:37)
[2017-08-28] MEDS: *HR* Labetalol 20 MG/4 ML SYRINGE IVP PRN ×2 (01:17→04:58)
[2017-08-28 04:51] LABS: Basophils % 0.1 %; Eosinophils % 0.1 %; Hematocrit 40.9 % (37.5-50.1); Hemoglobin 13.5 g/dL (12.9-16.9); Immature Granulocytes % 0.3 % (0-4); Lymphocytes # 1.1 K/mcL (0.6-4.6); Lymphocytes % 7.6 %; Mean Corpuscular Hemoglobin 27.7 pg (28.0-33.3); Mean Corpuscular Volume 83.8 fL (83.0-100.0); Mean Platelet Volume 9.7 fL (9.4-12.4); Monocytes # 0.7 K/mcL (0.0-1.3); Monocytes % 4.6 %; Neutrophils # 12.6 K/mcL (1.6-8.9); Platelet Count 384 K/mcL (140-400); Red Blood Count 4.88 M/mcL (4.19-5.50); Red Cell Distribution Width 12.3 % (11.5-14.5); Segmented Neutrophils % 87.3 %
[2017-08-28] MEDS: *HR* OxyCODONE Immed Rel 5 MG TABLET PO PRN (04:57)
[2017-08-28 05:04] LABS: BUN/Creatinine Ratio 19 (6-26); Blood Urea Nitrogen 18 mg/dL (6-20); Calcium 9.4 mg/dL (8.6-10.3); Carbon Dioxide 26 mEq/L (23-29); Chloride 104 mEq/L (98-107); Glucose 129 mg/dL (70-105); Osmolality,Calculated 290 (280-300); Potassium 4.3 mEq/L (3.5-5.1); Sodium 138 mEq/L (136-145); eGFR For African Americans > 60 (> 60); eGFR For Non-African Americans > 60 (> 60)
[2017-08-28] MEDS ORDERED: *HR* Heparin 5,000 UNIT/ML VIAL SQ SCH ×2 (06:00)
[2017-08-28] MEDS: Ketorolac 15 MG/ML VIAL IVP SCH ×2 (06:22→11:24)
[2017-08-28] MEDS: *HR* Metoprolol 5 MG/5 ML VIAL IVP SCH ×2 (06:22→11:24)
--- NOTE | 2017-08-28 07:11 | Discharge Summary ---
Date of Encounter: 08/28/17 Time of Encounter: 07:50 - Discharge Diagnosis (1) Abdominal aneurysm Priority: Primary Status: Chronic Comments: The patient is postoperative day #1 after endograft repair of his aneurysm. He is tolerating a diet. His incisions are healing and his pain is controlled. He will be discharged today. (2) HTN (hypertension) Priority: Secondary Status: Chronic Qualifiers: Hypertension type: essential hypertension Qualified Code(s): I10 - Essential (primary) hypertension (3) HLD (hyperlipidemia) Priority: Secondary Status: Chronic Qualifiers: Hyperlipidemia type: mixed hyperlipidemia Qualified Code(s): E78.2 - Mixed hyperlipidemia (4) Tobacco abuse Priority: Secondary Status: Chronic - Discharge Medications Prescriptions: OxyCODONE/APAP 5/325 [Percocet 5/325 MG] 1 each PO Q6HR PRN 7 Days #25 tablet PRN Reason: POSTOPERATIVE PAIN Home Medications: Ascorbate Calcium [Vitamin C] 500 mg PO BID 08/27/17 [History] Aspirin [Lo-Dose Aspirin EC] 81 mg PO DAILY 08/27/17 [History] Cyanocobalamin (Vitamin B-12) [Vitamin B-12] 1,000 mcg PO DAILY 08/27/17 [ History] Labetalol [Trandate] 100 mg PO BID 08/27/17 [History] Lisinopril [Zestril] 40 mg PO BID 08/27/17 [History] Multivitamin [One Daily Essential] 1 tab PO DAILY 08/27/17 [History] Nicotine Patch [Nicoderm] 21 mg TD DAILY 08/27/17 [History] [place]-3/Dha/Epa/Fish Oil [Fish Oil 1,000 mg Softgel] 1 cap PO DAILY 08/27/17 [ History] Omeprazole [PriLOSEC] 20 mg PO DAILY 08/27/17 [History] Potassium Gluconate 99 mg PO BID 08/27/17 [History] Simvastatin [Zocor] 40 mg PO QPM 08/27/17 [History] OxyCODONE/APAP 5/325 [Percocet 5/325 MG] 1 each PO Q6HR PRN 7 Days #25 tablet [Rx] Allergies/Adverse Reactions: 3 Allergy/AdvReac Type Severity Reaction Status Date / Time No Known Allergies Allergy Verified 08/27/17 07:40 Orders not resulted at time of discharge: Pending orders 08/26/17 07:52 Red Blood Cells [BBK] Routine Date of admission: 08/27/17 13:14 Primary care physician: Peter Espinal DO Procedure(s) Performed: Endograft repair of abdominal aortic aneurysm Discharging clinician: Dante Hartman Anticipated date of discharge: 08/28/17 - Patient Status Disposition: Home, Self-Care Condition: Good Functional capacity at discharge: independent ambulation Overall status at discharge: patient is back to baseline - Discharge Instructions Instructions: Oxycodone/Acetaminophen (By mouth), Abdominal Aortic Aneurysm Repair (DC), Surgical Site Infections (GEN) Follow Up With: Dante Hartman MD [Partnered Physician] - 10/06/17 3:40 pm Peter Espinal DO [Primary Care Provider] - 09/04/17 1:00 pm Additional Instructions: May remove bandages and shower on 08/29/17. No tub baths or swimming until 09/18/17. Wash wounds gently and pat to dry. Apply dry gauze to wounds daily for [address] Hartman at [phone] with questions or concerns. - Diet and Activity Activity: increase activity as tolerated - Hospital Course Hospital course: Mr. Berrios is a 47 year old male admitted with an abdominal aortic aneurysm on 08/27/2017. He underwent endograft repair of his aneurysm. He tolerated the procedure well and was discharged in stable condition on postoperative day #1 without complications. Time spent discussing smoking cessation with patient: 3 to 10 minutes - Time Spent with Patient Total time spent providing and/or coordinating discharge services: Exam Vital Signs, Last 4 Hours Pulse Resp BP Pulse Ox 08/28/17 06:00 80 171/109 08/28/17 04:40 82 175/111 08/28/17 03:52 83 18 160/96 95 General: Present: Conversant, No Apparent Distress HEENT: Present: Pupils equal Neck: Absent: JVD Cardiac: Present: Reg Rate and Rhythm, Normal S1 and S2 Lungs: Present: Normal Breath Sounds Neuro: Present: Alert and responsive, No focal deficits noted Abdomen: Present: Soft, Non-tender. Absent: Masses Vascular: Present: Normal capillary refill, Surgical incisions (no hematoma, clean, dry and intact). Absent: Clubbing, Edema - VTE Documentation of Mechanical Device: Intermittent pneumatic compression device
[2017-08-28 07:33] VITALS: BP 174/114
[2017-08-28] MEDS: Lisinopril 20 MG TABLET PO SCH (08:38)
[2017-08-28] MEDS: Nicotine 21 MG PATCH.TD24 TD SCH (08:39)
[2017-08-28] MEDS: Ascorbic Acid 500 MG TABLET PO SCH (08:39)
[2017-08-28] MEDS: Potassium Gluconate 99 MG PO SCH (08:40)
[2017-08-28] MEDS ORDERED: Multivit/Ca/Min/Fe/FA 1 TAB TABLET PO SCH (09:00)
[2017-08-28] MEDS ORDERED: Cyanocobalamin (B-12) 1,000 MCG TABLET PO SCH (09:00)
[2017-08-28] MEDS ORDERED: Aspirin Enteric Coated 81 MG Tablet PO SCH (09:00)
== END 2017-08-28 12:09 | disposition home or self-care (01) | DRG 269 ==
LOC: SAMDAY 06:50 → 2NNU 13:14
PROVIDERS: ADMIT Surgery; ATTEND Surgery

== ENCOUNTER 2018-11-26 06:12 | Inpatient (IN) ==
--- NOTE | 2018-11-25 13:43 | Anesthesia Evaluation PreOp ---
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 History: TIA (2001) Other Medical History: GERD Anesthesia History: No Prior Anesthetic Complications, Past Anesthesia (endo-AAA 2-18, left fem-pop 12-, R fem-pop ) Alcohol Use: rarely Drug use: none Medications and Allergies Ascorbate Calcium [Vitamin C] 500 mg PO BID 08/27/17 [History] Aspirin [Lo-Dose Aspirin EC] 81 mg PO HS 08/27/17 [History] Labetalol [Trandate] 100 mg PO BID 08/27/17 [History] Multivitamin [One Daily Essential] 1 tab PO DAILY 08/27/17 [History] Omeprazole [PriLOSEC] 20 mg PO HS 08/27/17 [History] Potassium Gluconate 99 mg PO BID 08/27/17 [History] Simvastatin [Zocor] 40 mg PO QPM 08/27/17 [History] Allopurinol [Zyloprim] 300 mg PO DAILY 06/02/18 [History] CloNIDine HCl [Kapvay] 0.1 mg PO TID 06/02/18 [History] Hydralazine HCl 50 mg PO TID 06/02/18 [History] Spironolactone [Aldactone] 25 mg PO DAILY 10/13/18 [History] hydroCHLOROthiazide [Hydrochlorothiazide] 50 mg PO DAILY 10/13/18 [History] Nicotine Patch [Nicoderm] 21 mg TD DAILY 11/26/18 [History] Nitroglycerin [Nitrostat] 0.4 mg SL Q5M PRN 11/26/18 [History] Allergy/AdvReac Type Severity Reaction Status Date / Time No Known Allergies Allergy Verified 11/26/18 07:13 - Meds/Allergy Pre-op Review Medications Reviewed: Yes Allergies Reviewed: Yes Beta Blockers on Current Med List: Yes (metoprolol) If Beta Blockers taken, Date/Time (Last Dose taken): 718 Anesthesia Results - Labs Laboratory Tests 11/23/18 11/23/18 11/23/18 16:35 16:35 16:35 WBC 6.9 Hgb 13.2 Hct 41.2 Plt Count 247 PT 10.9 INR 1.0 APTT 32.5 Sodium 141 Potassium 4.3 Chloride 104 Carbon Dioxide 28 BUN 13 Creatinine 1.27 Est GFR (Non-Af Amer) > 60 Hemoglobin A1c 11/23/18 16:35 WBC Hgb Hct Plt Count PT INR APTT Sodium Potassium Chloride Carbon Dioxide BUN Creatinine Est GFR (Non-Af Amer) Hemoglobin A1c 7.0 H - Imaging EKG: report reviewed Chest x-ray: report reviewed Additional studies: 10/13/2018 LEFT HEART CATH Right iliofemoral angiography Indications: Worsening Angina Impressions: There is severe three vessel coronary artery disease. The left ventricle is normal and has normal contractility EF 65% There is fair quality collateral vessel/vessels from the Distal LAD to the Marginal that are visualized. Mid RCA is anuerysmal. Recommendations: Optimal medical therapy of patient's disease. Aggressive risk factor modification. Suggest patient have Elective coronary artery bypass surgery; able to approach LAD and PDA via PCI LV Ventriculography Ejection Method: LV Gram Ejection Fraction: 65% Wall Motion: OCAMPO Anterobasal Normal Anterolateral Normal Apical: Normal Inferoapical Normal Inferobasal Normal Coronary Dominance: right Lesion Findings/Interventions * Left Main Coronary Artery The LMCA is angiographically free of disease. * Left Anterior Descending There is a 70% stenosis in the Mid LAD. The lesion has a ADRIÁN flow of 3. There is a 65-80% stenosis in the 1st Diagonal. The lesion has a ADRIÁN flow of 3. * Circumflex There is a 50% stenosis in the Proximal Circumflex. The lesion has a ADRIÁN flow of 3. There is a 100% stenosis in the Marginal. The lesion has a ADRIÁN flow of 2 from ipsilateral collaterals * Right Coronary Artery There is a 80% stenosis in the Right PDA. The lesion has a ADRIÁN flow of 3. There is a 65% stenosis in the RPLB. The lesion has a Adrián flow of 3. EV/EV limited echocardiogram Impressions: LVEF 60-65%. Normal LV chamber size and function. Moderate concentric left ventricular hypertrophy. Left Ventricular Wall Motion: Rest Echo Findings All wall segments showed normal motion. Findings: Study Quality * Technically adequate exam. ECG Findings * Normal sinus rhythm. Left Ventricle * LVEF 60-65%. * Normal LV chamber size and function. * Moderate concentric left ventricular hypertrophy. Right Ventricle * Normal right ventricular structure and function. Aorta * Normally sized aortic root. Pericardium * The pericardium appears normal. IVC * Grossly normal IVC dimensions and inspiratory collapse. Anesthesia Exam Vital Signs/O2 Sat/Glucose, Most Recent Temp Pulse Resp BP Pulse Ox 97.9 F 70 18 193/112 97 11/26/18 07:24 11/26/18 07:24 11/26/18 07:24 11/26/18 07:24 11/26/18 07:24 Blood Glucose* 120 Weight: 92 kg NPO (# of Hours): > 8 hr - HEENT Pupil (Motor): Pupils equal Mallampati: II Teeth: Poor dentition (multiple bottom cracked) Denture Type: Upper: Complete Oral Opening: Greater than 3 - BEHAVIORAL HEALTH AIDE LOC: Oriented BEHAVIORAL HEALTH AIDE Motor: Normal RUE, Normal LUE, Normal RLE, Normal LLE, Normal Face BEHAVIORAL HEALTH AIDE Sensory: Deficit: RLE, LLE - Cardiac Rhythm: Regular Murmur: None - Pulmonary Breath Sounds: bilateral Clear Respiratory Effort: Symmetrical Anesthesia Assess/Plan ASA Score: 4 (CAD, PVD, HTN) Level of consciousness: Cooperative, Oriented Anesthetic Plan: General Monitoring Plan: Standard Monitors, A-Line, CVC, PAC, DEVON Recovery Plan: ICU
[~2018-11-26 06:12] MED LIST: Dextrose 50 % in Water (Vial) 30 ML, Sodium Bicarbonate 20 MEQ, Lidocaine 1% 5 ML, Insu... TH ONE; Dextrose 50 % in Water (Vial) 30 ML, Sodium Bicarbonate 20 MEQ, Potassium Chloride 15 M... TH ONE; Heparin 15,000 UNIT in 0.9 % Sodium Chloride 500 ML IV ONE; Insulin Human Regular 100 UNIT in 0.9 % Sodium Chloride 100 ML IV PRN; Norepinephrine 4 MG in D5% in Water 250 ML IVC PRN
[2018-11-26] MEDS ORDERED: CeFAZolin Syr 2,000MG/20 ML 2,000 MG/20 ML SYRINGE IVPB ONE (06:35)
[2018-11-26] MEDS ORDERED: Albuterol 2.5 MG/3 ML NEBULIZER IH ONE (06:42)
[2018-11-26] MEDS ORDERED: Albuterol 2.5 MG/3 ML NEBULIZER ONE (06:43)
[2018-11-26] MEDS ORDERED: Ringers Solution, Lactated 1,000 ML IVC SCH (06:45)
[2018-11-26] MEDS ORDERED: Nitroglycerin 25 MG/250 ML INFUS..BTL IVC ONE (06:58)
[2018-11-26] MEDS ORDERED: *HR* Midazolam HCl 5 MG/5 ML VIAL IVP ONE (07:00)
[2018-11-26] MEDS ORDERED: *HR* Propofol 200 MG/20 ML VIAL IVP ONE (07:00)
[2018-11-26] MEDS ORDERED: *HR* FentaNYL (PF) 1,000 MCG/20 ML VIAL ONE (07:00)
[2018-11-26] MEDS ORDERED: Dexamethasone 4 MG/ML VIAL ONE (07:03)
[2018-11-26] MEDS ORDERED: *HR* Rocuronium Bromide 50 MG/5 ML VIAL ONE ×3 (07:03→10:36)
[2018-11-26] MEDS ORDERED: *HR* PHENYLEPHRINE 1,000 MCG/10 ML SYRINGE IVP ONE (07:03)
--- NOTE | 2018-11-26 07:03 | History & Physical Report ---
Date of Encounter: 11/26/18 Time of Encounter: 07:03 24 Hour HP Update - Instructions Instructions: If the History and Physical is less than 30 days old and was completed prior to A.M. admission and or procedure and has NOT been updated on calendar day of procedure please complete this update prior to performing procedure. - Update Patient reports changes in Medical Condition: No Changes in examination, assessment, or condition: No Changes in Medication: No Preop tests/diagnostics Reviewed: Yes Pre-Op MRSA Screen: Negative Surgery Remains Indicated: Yes Consent for Planned Operative Procedure(s) Verified: Yes - Pre-Operative Checklist Preoperative Checklist Indicated: No Prophylactic Antibiotic Ordered: Yes Home Medications Include Beta Bill: Yes Beta Bill Taken Today (Day of Surgery): Yes Beta Bill Taken Yesterday (Day Prior to Surgery): Yes Is VTE Prophylaxis Indicated?: NO
[2018-11-26] MEDS ORDERED: Famotidine 20 MG/2 ML VIAL ONE (07:04)
[2018-11-26] MEDS ORDERED: *HR* Magnesium Sulfate 1 GM/2 ML VIAL ONE (07:07)
[2018-11-26] MEDS ORDERED: Tranexamic Acid 1,000 MG/10 ML VIAL ONE (07:08)
[2018-11-26] MEDS ORDERED: Lidocaine 2% Syringe 100 MG/5 ML ONE (07:09)
[2018-11-26] MEDS: Chlorhexidine Rinse 15 ML MOUTHWASH MM SCH ×3 (07:18→20:08)
[2018-11-26 08:21] LABS: ABG Base Excess 0 mEq/L (-2 to 3); ABG Chloride 106 mEq/L (98-107); ABG Glucose 128 mg/dL (60-95); ABG HCO3 26 mEq/L (21-27); ABG Ionized Calcium 1.21 mmol/L (1.15-1.35); ABG Oxygen Saturation 100 % (95-98); ABG PCO2 47 mmHg (35-45); ABG PH 7.35 pH Units (7.32-7.45); ABG PO2 260 mmHg (85-104); ABG TCO2 27 mEq/L (20-26)
[2018-11-26] MEDS ORDERED: niCARdipine 20 MG/200 ML MLS IVC ONE (08:42)
--- NOTE | 2018-11-26 10:04 | Anesthesia Procedures ---
Date of Encounter: 11/26/18 Time of Encounter: 08:00 Procedures: Anesthesia - Arterial Line Consent obtained: written consent Time out performed: Yes Sedation: Versed (mg): 3 Sedation: Fentanyl (mcg): 100 Supplemental Oxygen via Nasal Cannula (L/min): 6 Local Anesthetic: Lidocaine 1% Size (Gauge): 20 Length (inches): 5 Technique Used: sterile prep, guide wire technique, direct puncture technique Post-Procedure: line taped into place, dry sterile dressing placed Patient tolerated procedure: well, no complications Complications: none Site: Brachial L Vitals: see anesthesia record Comments: brachial a-line for history of raynauds bilaterally - Central Line Placement Right IJ Consent obtained: written consent Time out performed: Yes Patient placed on monitor/pulse ox: Yes Supplemental Oxygen via Nasal Cannula (L/min): 4 MD prep: mask, gown, gloves Central line prep: Chlorhexidine scrub Local Anesthetic Used: Other (general anesthesia ) Ultrasound used for placement: Yes Technique: Seldinger Lumen Inserted: single Size / Length: 9 Fr / 10 cm Post procedure: sutured in place, good blood return, sterile dressing applied Patient tolerated procedure: well, no complications Complications: none Vitals: see anesthesia record Comments: PAC insterted using pressure waveform analysis and secured at 49 cm
[2018-11-26 10:05] LABS: VBG Base Excess 2 mEq/L; VBG Chloride 100 mEq/L (98-107); VBG Glucose 192 mg/dl (65-95); VBG HCO3 28 mEq/L (21-27); VBG Ionized Calcium 1.01 mmol/L (1.15-1.35); VBG Oxygen Saturation 61 %; VBG PCO2 50 mmHg (41-51); VBG PH 7.36 pH Units (7.32-7.42); VBG PO2 34 mmHg (25-50); VBG Total CO2 29 mEq/L
[2018-11-26] MEDS ORDERED: *HR* Amiodarone 150 MG/3 ML VIAL IVPB ONE (10:13)
[2018-11-26] MEDS ORDERED: Amiodarone Premix 360 MG/200 ML BAG IVC ONE ×2 (10:14→11:34)
[2018-11-26] MEDS ORDERED: Sodium Bicarbonate 50 MEQ/50 ML VIAL IVC ONE (10:15)
[2018-11-26] MEDS ORDERED: Mannitol 25% vial 12.5 GM/50 ML VIAL IVP ONE (10:15)
[2018-11-26] MEDS ORDERED: *HR* Heparin 10,000 UNIT/10 ML VIAL IV ONE (10:15)
[2018-11-26] MEDS ORDERED: *HR* Magnesium Sulfate 2 GM/50 ML PIGGYBACK IVPB ONE (10:15)
[2018-11-26] MEDS ORDERED: Lidocaine 2% Syringe 100 MG/5 ML IV ONE (10:15)
[2018-11-26] MEDS ORDERED: *HR* Phenylephrine 10 MG/ML VIAL IVC ONE (10:15)
[2018-11-26] MEDS ORDERED: Albumin Human 25% 25 GM/100 ML IV.SOLN IV ONE (10:15)
[2018-11-26] MEDS ORDERED: Protamine Sulfate 250 MG/25 ML VIAL IVP ONE (10:18)
[2018-11-26 10:33] LABS: ABG Chloride 107 mEq/L (98-107); ABG Glucose 150 mg/dL (60-95); ABG Ionized Calcium 0.94 mmol/L (1.15-1.35); ABG PCO2 < 13 mmHg (35-45); ABG PH 7.92 pH Units (7.32-7.45); ABG PO2 > 630 mmHg (85-104)
[2018-11-26 10:43] LABS: ABG Base Excess 0 mEq/L (-2 to 3); ABG Chloride 103 mEq/L (98-107); ABG Glucose 171 mg/dL (60-95); ABG HCO3 26 mEq/L (21-27); ABG Ionized Calcium 1.42 mmol/L (1.15-1.35); ABG Oxygen Saturation 99 % (95-98); ABG PCO2 46 mmHg (35-45); ABG PH 7.35 pH Units (7.32-7.45); ABG PO2 128 mmHg (85-104); ABG TCO2 27 mEq/L (20-26)
[2018-11-26] MEDS: Nitroglycerin 25 MG/250 ML INFUS..BTL IVC SCH ×2 (11:19→22:56)
--- NOTE | 2018-11-26 11:27 | Operative Note ---
Date of procedure: 11/26/18 Pre-op diagnosis: CAD Post-op diagnosis: same Procedure: 1. CABG1 (LOYD to LAD) Implants: None. Complications: None. Anesthesia: GETA Surgeon: Kasia Yu Was there an medical laboratory assistant present: Yes Ob Gyn Physician Assistant: Lucas Marcano Estimated blood loss (cc): 500 Specimen: None. Condition: stable Disposition: ICU Procedure in Detail: INDICATIONS FOR OPERATION: The patient is a 48-year-old hypertensive man with hypercholesterolemia, known cerebrovascular disease, and known peripheral arterial disease. He states that he had severe substernal chest pain and 2017 which lasted for several days. The pain eventually resolved and he was scheduled for several vascular procedures, including endovascular AAA repair, left femoral-popliteal bypass, and right femoral-popliteal bypass. He underwent cardiac clearance prior to these procedures, including a nuclear stress test which was negative for ischemia. Recently, the began experiencing exertional, nonradiating substernal chest pain and shortness of breath. He states that walking quickly or carrying heavy objects will precipitate the pain and shortness of breath. If the rest for 5 minutes, he has relief of the symptoms; however, the symptoms will recur with activity. He underwent cardiac catheterization and was found to have severe 3 vessel CAD and an LVEF 65%. In particular, the patient has a 70% mid LAD lesion, a 70-80% proximal D1 lesion, a 50% proximal LCx lesion, and platelet occluded proximal OM1 which fills distally via left to left collaterals, an 80% proximal PDA lesion, and a 60-70% proximal right PLB lesion. The patient was recommended for CABG. During his office evaluation, his extensive bilateral lower extremity surgeries were evaluated, and the left and right femoral-popliteal bypasses were noted to be performed with greater saphenous vein. He had positive Bc signs bilaterally and the radial arteries were not usable for bypass conduit. A venous mapping procedure indicated that the lesser saphenous vein was also unsuitable for bypass conduit. The patient's screen roller, Dr. Max Chang, was contacted and it was decided that a hybrid procedure would be performed to bypass the coronary arteries. The LOYD was be used to bypass the LAD and the patient would have coronary stents placed in the LCx and RCA distributions. FINDINGS AT OPERATION: The aorta was slightly enlarged (approximately 4.5 cm in diameter) and without calcification. The LAD was intramyocardial throughout most of its course and measured approximately 1.5 mm in the distal one third where it became epicardial. The total bypass time was 35 minutes, cross-clamp time 21 minutes, intentional hypothermia of 34.9 degrees centigrade. DESCRIPTION OF OPERATION: After obtaining informed consent from the patient, he was taken to the operating room where a satisfactory general endotracheal anesthetic was induced. Appropriate monitor lines were placed, the patient's chest, abdomen, and lower extremities were prepped and draped in a sterile fashion.. A standard median sternotomy incision was made and the sternum divided. The sternum was and the pericardium opened and reflected laterally. The LAD was examined and found to be intramyocardial throughout most of its course, coming epicardial and the distal one third. It was decided to perform the bypass procedure on pump rather than with the beating heart because of the location and size of the proposed LAD graft site. The LOYD was taken down from its bed and side branches divided between hemoclips. The patient was prepared for cannulation by placing pursestring sutures the distal ascending aorta, mid-ascending aorta and the right atrial appendage. The patient was heparinized and when the ACT was greater than 200 seconds, the distal ascending aorta was cannulated followed by placement of a dual stage venous cannula through the right atrial appendage and into the inferior vena cava. A stab-and antegrade metabolic and is placed in the mid-ascending aorta. The patient was placed on bypass and the temperature allowed to drift to 34.9 degrees centigrade. The distal target was identified and the aorta was crossclamped. The patient received 700 mL of cold antegrade crystalloid cardioplegia through the aortic root and the patient's heart obtained rapid diastolic arrest. The distal LAD was opened the [place] blade and measured approximately 1.5 mm in diameter. The LOYD was anastomosed in an end-to-side fashion to the LAD using a running 7-0 Prolene suture. The anastomosis found to be hemostatic and the mammary pedicle was tacked to the epicardium using interrupted 0 silk suture. Rewarming was begun during this anastomosis. The aortic cross-clamp was released. During rewarming the patient's heart rhythm degenerated to ventricular fibrillation and required both an amiodarone drip and several 10J and 20 J direct-current shocks in order to regained normal sinus rhythm. Two right ventricular temporary epicardial pacing lesion placed, and 3 chest suture placed, 2 in the mediastinum and one into the left pleural space. When the patient's systemic temperature reached 36 degrees centigrade he was ventilated and received volume. He was weaned from bypass required no inotropic support. Protamine was administered and the aortic, antegrade metabolic, and venous cannulae were removed. The pursestring sutures were secured. The venous cannulation site was reinforced a running 4-0 Prolene suture. The pericardium was loosely approximated in the midline using interrupted 0 silk suture and the sternum was reapproximated using doubled wires. The pectoralis major fascia, rectus abdominis fascia, subcutaneous tissue, and skin edges were reapproximated using running Vicryl sutures. Sterile dressings were applied. The patient was transferred to the ICU in satisfactory postoperative condition. There were no intraoperative complications, and the instrument, needle, and sponge count were corrected at end of operation. - Open Heart Detail LILIA (Internal Mammary Artery) Usage: Yes Cardiopulmonary Bypass Time (mins): 35 Aortic Cross Clamp Time (mins): 21 Intentional Hypothermia Temperature (C.): 34.9
[2018-11-26] MEDS ORDERED: Insulin Regular, Human 100 UNIT/ML IV PRN (11:34)
[2018-11-26] MEDS ORDERED: Calcium Chloride 1,000 MG in 0.9 % Sodium Chloride 100 ML IVPB PRN (11:34)
[2018-11-26] MEDS ORDERED: Ondansetron 4 MG/2 ML VIAL IVP PRN (11:34)
[2018-11-26] MEDS ORDERED: *HR* Dextrose 50 % in Water (Syg) 50 ML SYRINGE IVP PRN (11:34)
[2018-11-26] MEDS ORDERED: Acetaminophen 325 MG TABLET PO PRN (11:34)
[2018-11-26 11:45] LABS: ABG Base Excess 2 mEq/L (-2 to 3); ABG HCO3 28 mEq/L (21-27); ABG Oxygen Saturation 99 % (95-98); ABG PCO2 50 mmHg (35-45); ABG PH 7.35 pH Units (7.32-7.45); ABG PO2 131 mmHg (85-104); ABG TCO2 30 mEq/L (20-26); Blood Gas PEEP 5 cm H2O; Blood Gas Respiration Rate 10; Blood Gas VT 600 cc
[2018-11-26] MEDS ORDERED: Insulin Human Regular 100 UNIT in 0.9 % Sodium Chloride 100 ML IVC SCH (11:45)
[2018-11-26] MEDS ORDERED: Norepinephrine 4 MG in D5% in Water 250 ML IVC SCH (11:45)
[2018-11-26] MEDS ORDERED: 0.9 % Sodium Chloride w KCl 20 MEQ/1,000 ML MLS IVC SCH (11:45)
[2018-11-26 11:58] LABS: Basophils # 0.1 K/mcL (0.0-0.2); Basophils % 0.4 %; Eosinophils # 0.2 K/mcL (0.0-0.6); Eosinophils % 1.3 %; Immature Granulocytes % 0.4 % (0-4); Lymphocytes % 7.9 %; Mean Corpuscular HGB Conc 31.8 g/dL (31.6-35.5); Mean Corpuscular Hemoglobin 27.7 pg (28.0-33.3); Mean Corpuscular Volume 87.1 fL (83.0-100.0); Mean Platelet Volume 10.1 fL (9.4-12.4); Monocytes # 0.5 K/mcL (0.0-1.3); Monocytes % 3.8 %; Neutrophils # 10.3 K/mcL (1.6-8.9); Platelet Count 169 K/mcL (140-400); Red Blood Count 3.79 M/mcL (4.19-5.50); Red Cell Distribution Width 13.9 % (11.5-14.5); Segmented Neutrophils % 86.2 %
[2018-11-26] MEDS ORDERED: Acetaminophen 650 MG RECTAL SUPP RC PRN (12:00)
[2018-11-26 12:01] LABS: Hemoglobin 10.5 g/dL (12.9-16.9)
[2018-11-26] MEDS: niCARdipine 20 MG/200 ML MLS IVC SCH ×3 (12:07→22:40)
[2018-11-26 12:10] LABS: INR 1.1
[2018-11-26 12:12] LABS: Activated Partial Thrombo Time 31.7 Seconds (26.0-36.0); BUN/Creatinine Ratio 9 (6-26); Blood Urea Nitrogen 9 mg/dL (6-20); Calcium 8.7 mg/dL (8.6-10.3); Carbon Dioxide 28 mEq/L (23-29); Chloride 106 mEq/L (98-107); Glucose 144 mg/dL (70-105); Magnesium 3.1 mg/dL (1.6-2.6); Osmolality,Calculated 289 (280-300); Potassium 4.7 mEq/L (3.5-5.1); Sodium 139 mEq/L (136-145); eGFR For Non-African Americans > 60 (> 60)
[2018-11-26] MEDS ORDERED: 0.9 % Sodium Chloride 1,000 ML ONE (12:24)
[2018-11-26] MEDS: Furosemide 20 MG/2 ML VIAL IVP SCH ×2 (12:27→16:12)
[2018-11-26] MEDS: Ketorolac 15 MG/ML VIAL IVP SCH ×2 (12:27→16:55)
[2018-11-26] MEDS: Metoclopramide 10 MG/2 ML VIAL IVP SCH ×2 (12:27→16:55)
[2018-11-26] MEDS ORDERED: 0.9 % Sodium Chloride 1,000 ML IVC SCH (12:30)
[2018-11-26] MEDS: Pantoprazole 40 MG VIAL IVP SCH (12:32)
[2018-11-26] MEDS: *HR* FentaNYL (PF) 100 MCG/2 ML VIAL IVP PRN ×5 (12:59→22:00)
[2018-11-26] MEDS: *HR* OxyCODONE/APAP 5/325 TABLET PO PRN ×3 (13:09→21:41)
--- NOTE | 2018-11-26 13:29 | Anesthesia Evaluation Post Op ---
Date of Encounter: 11/26/18 Time of Encounter: 13:28 - Vital Signs Vital Signs: Vital Signs/O2 Sat/Glucose, Most Recent Temp Pulse Resp BP Pulse Ox 97.9 F 70 18 193/112 97 11/26/18 07:24 11/26/18 07:24 11/26/18 07:24 11/26/18 07:24 11/26/18 07:24 Blood Glucose* 152 - Lungs Lungs: Clear Ascult./Percussion - Airway Airway: Intubated - Cardiovascular Regular Rate - Mental Status Mental Status: Alert & Oriented, Answers Appropriately - Pain Pain Scale used: Unable to assess - Nausea Vomiting Nausea Vomiting: Present - Hydration Hydration: NPO - Discharge Attestation: continue to monitor in ICU
[2018-11-26] MEDS: Amiodarone Premix 360 MG/200 ML BAG IVC SCH ×2 (14:12→15:55)
[2018-11-26 16:04] LABS: ABG Base Excess 2 mEq/L (-2 to 3); ABG HCO3 29 mEq/L (21-27); ABG Oxygen Saturation 99 % (95-98); ABG PCO2 57 mmHg (35-45); ABG PH 7.32 pH Units (7.32-7.45); ABG PO2 138 mmHg (85-104); ABG TCO2 31 mEq/L (20-26); Blood Gas PEEP 5 cm H2O; Blood Gas Respiration Rate 12; Blood Gas VT 600 cc
--- NOTE | 2018-11-26 17:48 | Electrocardiograph Report ---
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
[2018-11-26 18:10] LABS: ABG Base Excess 1 mEq/L (-2 to 3); ABG HCO3 28 mEq/L (21-27); ABG Oxygen Saturation 97 % (95-98); ABG PCO2 54 mmHg (35-45); ABG PH 7.33 pH Units (7.32-7.45); ABG PO2 94 mmHg (85-104); ABG TCO2 30 mEq/L (20-26); Blood Gas Modality CPAP/PS; Blood Gas PEEP 5 cm H2O; Blood Gas Pressure Support 10 cm H2O
[2018-11-26 19:54] LABS: ABG Base Excess 2 mEq/L (-2 to 3); ABG HCO3 28 mEq/L (21-27); ABG Oxygen Saturation 93 % (95-98); ABG PCO2 50 mmHg (35-45); ABG PH 7.36 pH Units (7.32-7.45); ABG PO2 71 mmHg (85-104); ABG TCO2 30 mEq/L (20-26)
[2018-11-27] MEDS: Ketorolac 15 MG/ML VIAL IVP SCH ×5 (00:01→23:09)
[2018-11-27] MEDS: Metoclopramide 10 MG/2 ML VIAL IVP SCH ×5 (00:01→23:09)
[2018-11-27] MEDS: niCARdipine 20 MG/200 ML MLS IVC SCH ×2 (01:05→03:07)
[2018-11-27] MEDS: Amiodarone Premix 360 MG/200 ML BAG IVC SCH (03:57)
[2018-11-27] MEDS: *HR* OxyCODONE/APAP 5/325 TABLET PO PRN ×4 (04:00→21:07)
[2018-11-27] MEDS: *HR* FentaNYL (PF) 100 MCG/2 ML VIAL IVP PRN (04:43)
[2018-11-27 05:12] LABS: Basophils # 0.1 K/mcL (0.0-0.2); Basophils % 0.2 %; Hematocrit 36.3 % (37.5-50.1); Hemoglobin 11.5 g/dL (12.9-16.9); Immature Granulocytes % 0.6 % (0-4); Lymphocytes # 1.1 K/mcL (0.6-4.6); Lymphocytes % 4.6 %; Mean Corpuscular HGB Conc 31.7 g/dL (31.6-35.5); Mean Corpuscular Hemoglobin 27.8 pg (28.0-33.3); Mean Corpuscular Volume 87.7 fL (83.0-100.0); Mean Platelet Volume 9.9 fL (9.4-12.4); Monocytes # 2.1 K/mcL (0.0-1.3); Monocytes % 8.3 %; Neutrophils # 21.3 K/mcL (1.6-8.9); Platelet Count 236 K/mcL (140-400); Red Blood Count 4.14 M/mcL (4.19-5.50); Red Cell Distribution Width 14.4 % (11.5-14.5); Segmented Neutrophils % 86.3 %
[2018-11-27 05:14] LABS: Prothrombin Time 11.1 Seconds (9.4-12.1)
[2018-11-27 05:18] LABS: BUN/Creatinine Ratio 13 (6-26); Blood Urea Nitrogen 15 mg/dL (6-20); Calcium 8.3 mg/dL (8.6-10.3); Carbon Dioxide 27 mEq/L (23-29); Chloride 104 mEq/L (98-107); Glucose 137 mg/dL (70-105); Magnesium 2.2 mg/dL (1.6-2.6); Osmolality,Calculated 291 (280-300); Potassium 4.9 mEq/L (3.5-5.1); Sodium 139 mEq/L (136-145); eGFR For Non-African Americans > 60 (> 60)
[2018-11-27] MEDS: Nitroglycerin 25 MG/250 ML INFUS..BTL IVC SCH ×2 (06:19→08:33)
[2018-11-27 06:36] LABS: Platelet Estimate Normal (Normal)
--- NOTE | 2018-11-27 06:56 | Cardiothoracic Progress Note ---
Date of Encounter: 11/27/18 Time of Encounter: 06:54 - Assessment and plan (1) CAD (coronary artery disease) Current Visit: Yes Status: Acute The patient is recovering well from his CABG1. He is currently extubated and breathing comfortably. The arterial line, [place] catheter, and [place] catheter be removed. The patient will be transferred to the [address] [place] [address] when a bed is available. The assessment and plan as outlined above was discussed with the patient and/or family members who expressed understanding and agreement. All questions were answered. Qualifiers: Coronary Disease-Associated Artery/Lesion type: [place] artery [place] vs. transplanted heart: [place] heart Associated angina: with unstable angina Qualified Code(s): I25.110 - Atherosclerotic heart disease of [place] coronary artery with unstable angina pectoris - Subjective Procedure(s) Performed: POD#1 S/P CABG1 Interval history: The patient remained hemodynamically stable overnight. He is currently extubated and breathing comfortably. He was able to sit in a chair without difficulty. Vital Signs, Last 4 Hours Temp Pulse Resp BP Pulse Ox 11/27/18 06:00 77 16 123/69 96 11/27/18 05:00 79 18 107/76 92 11/27/18 04:05 16 91 11/27/18 04:00 98 F 76 16 113/74 89 11/27/18 03:00 76 10 107/67 92 Oxgyen Flow Rate Oxygen Flow Rate (LPM) 4 Clinical Data, last 8 Hours Output, Chest Tube Drainage 5 Amount [Mediastinal #2] Output, Chest Tube Drainage 0 Amount [Mediastinal #2] Output, Chest Tube Drainage 0 Amount [Mediastinal #2] Output, Chest Tube Drainage 0 Amount [Mediastinal #2] Output, Chest Tube Drainage 0 Amount [Mediastinal #2] Output, Chest Tube Drainage 0 Amount [Mediastinal #2] Output, Chest Tube Drainage 0 Amount [Mediastinal #2] Output, Chest Tube Drainage 0 Amount [Mediastinal #2] Output, Chest Tube Drainage 40 Amount [Mediastinal #1] Output, Chest Tube Drainage 20 Amount [Mediastinal #1] Output, Chest Tube Drainage 20 Amount [Mediastinal #1] Output, Chest Tube Drainage 10 Amount [Mediastinal #1] Output, Chest Tube Drainage 10 Amount [Mediastinal #1] Output, Chest Tube Drainage 10 Amount [Mediastinal #1] Output, Chest Tube Drainage 10 Amount [Mediastinal #1] Output, Chest Tube Drainage 10 Amount [Mediastinal #1] Weight 11/25/18 11/26/18 11/27/18 23:59 23:59 23:59 Weight 92.533 kg - Physical Examination General: Conversant, No Apparent Distress Neck: No JVD, Normal carotid pulses Cardiac: Reg Rate and Rhythm, Normal S1 and S2, No Murmur Incision: No signs of infection, Dry/intact dressing Chest tubes: Minimal drainage, Other (No air leak) Pacing Wires: In place Lungs: Normal Breath Sounds, No Wheeze, Rales, Rhonchi Neuro: Alert and responsive, No focal deficits noted Vascular: Normal capillary refill Extremities: No Clubbing, No Cyanosis, No Edema, Normal Pulses - Labs 11/27/18 04:46 11/27/18 04:46 Lab Results, Last 24 hours 11/26/18 11/26/18 11/26/18 11:39 11:39 11:39 WBC 12.0 H D Hgb 10.5 L D Hct 33.0 L Plt Count 169 INR 1.1 APTT 31.7 Sodium 139 Potassium 4.7 Chloride 106 Carbon Dioxide 28 BUN 9 Creatinine 1.03 Glucose 144 H Calcium 8.7 Magnesium 3.1 H 11/27/18 11/27/18 11/27/18 03:45 03:45 04:46 WBC TNP Hgb TNP Hct TNP Plt Count TNP INR TNP APTT TNP Sodium 139 Potassium 4.9 Chloride 104 Carbon Dioxide 27 BUN 15 Creatinine 1.16 Glucose 137 H Calcium 8.3 L Magnesium 2.2 11/27/18 11/27/18 04:46 04:46 WBC 24.7 H D Hgb 11.5 L Hct 36.3 L Plt Count 236 INR 1.0 APTT 27.0 Sodium Potassium Chloride Carbon Dioxide BUN Creatinine Glucose Calcium Magnesium - Imaging Chest Xray: image reviewed (No pneumothorax. Minimal bibasilar atelectasis/infiltrates. Increased pulmonary vascularity) - VTE Reasons for not Prescribing Prophylaxis: Medical contraindication Documentation of Mechanical Device: Graduated compression elastic hosiery Consult Discharge Plan - Plan Referrals: Peter Espinal DO [Primary Care Provider] -
[2018-11-27] MEDS: Pantoprazole 40 MG VIAL IVP SCH ×2 (08:32→10:40)
[2018-11-27] MEDS: Furosemide 20 MG/2 ML VIAL IVP SCH ×2 (08:32→17:24)
[2018-11-27] MEDS: Chlorhexidine Rinse 15 ML MOUTHWASH MM SCH ×3 (08:32→21:08)
[2018-11-27] MEDS ORDERED: D5% in Water 1,000 ML IVC PRN (08:47)
[2018-11-27] MEDS ORDERED: *HR* Dextrose 50 % in Water (Syg) 50 ML SYRINGE IVP PRN (08:47)
[2018-11-27] MEDS ORDERED: Acetaminophen 325 MG TABLET PO PRN (08:47)
[2018-11-27] MEDS ORDERED: Dextrose Gel 15 GM/37.5 ML TUBE PO PRN ×2 (08:47)
[2018-11-27] MEDS ORDERED: *HR* FentaNYL (PF) 100 MCG/2 ML VIAL IVP PRN (08:47)
[2018-11-27] MEDS ORDERED: Insulin Regular, Human 100 UNIT/ML IV PRN (08:47)
[2018-11-27] MEDS ORDERED: Ondansetron 4 MG/2 ML VIAL IVP PRN (08:47)
[2018-11-27] MEDS ORDERED: Insulin Human Regular 100 UNIT in 0.9 % Sodium Chloride 100 ML IVC SCH (08:47)
[2018-11-27] MEDS ORDERED: Nitroglycerin 0.4 MG TAB.SUBL SL PRN (08:47)
[2018-11-27] MEDS ORDERED: Aspirin Enteric Coated 81 MG Tablet PO SCH (09:00)
[2018-11-27] MEDS: Insulin LISPRO 300 UNITS/3 ML VIAL SQ SCH ×4 (10:39→21:08)
[2018-11-27] MEDS: Aspirin Enteric Coated 81 MG Tablet PO SCH (10:39)
[2018-11-27] MEDS: Nicotine 21 MG PATCH.TD24 TD SCH (10:42)
[2018-11-27] MEDS: *HR* Amiodarone 200 MG TABLET PO SCH (10:42)
[2018-11-27] MEDS ORDERED: Heparin 1,000 UNITS/500 mL 500 ML ONE (11:21)
[2018-11-27] MEDS: cloNIDine HCl 0.1 MG TABLET PO PRN (23:09)
[2018-11-28] MEDS: *HR* OxyCODONE/APAP 5/325 TABLET PO PRN ×5 (02:30→20:51)
[2018-11-28 04:38] LABS: Basophils % 0.2 %; Eosinophils % 0.3 %; Hematocrit 33.1 % (37.5-50.1); Hemoglobin 10.4 g/dL (12.9-16.9); Immature Granulocytes % 0.5 % (0-4); Lymphocytes # 1.3 K/mcL (0.6-4.6); Lymphocytes % 11.9 %; Mean Corpuscular HGB Conc 31.4 g/dL (31.6-35.5); Mean Corpuscular Hemoglobin 27.9 pg (28.0-33.3); Mean Corpuscular Volume 88.7 fL (83.0-100.0); Mean Platelet Volume 10.3 fL (9.4-12.4); Monocytes # 0.9 K/mcL (0.0-1.3); Monocytes % 8.5 %; Neutrophils # 8.7 K/mcL (1.6-8.9); Platelet Count 163 K/mcL (140-400); Red Blood Count 3.73 M/mcL (4.19-5.50); Red Cell Distribution Width 14.6 % (11.5-14.5); Segmented Neutrophils % 78.6 %
[2018-11-28 04:46] LABS: BUN/Creatinine Ratio 19 (6-26); Blood Urea Nitrogen 20 mg/dL (6-20); Calcium 8.5 mg/dL (8.6-10.3); Carbon Dioxide 31 mEq/L (23-29); Chloride 102 mEq/L (98-107); Glucose 128 mg/dL (70-105); Osmolality,Calculated 286 (280-300); Potassium 4.6 mEq/L (3.5-5.1); Sodium 136 mEq/L (136-145); eGFR For Non-African Americans > 60 (> 60)
[2018-11-28] MEDS: Ketorolac 15 MG/ML VIAL IVP SCH ×3 (05:19→17:31)
[2018-11-28] MEDS: Metoclopramide 10 MG/2 ML VIAL IVP SCH ×3 (05:20→17:31)
[2018-11-28] MEDS: *HR* Amiodarone 200 MG TABLET PO SCH (08:02)
[2018-11-28] MEDS: Aspirin Enteric Coated 81 MG Tablet PO SCH (08:02)
[2018-11-28] MEDS: Nicotine 21 MG PATCH.TD24 TD SCH (08:03)
[2018-11-28] MEDS: Furosemide 20 MG/2 ML VIAL IVP SCH ×2 (08:03→17:31)
[2018-11-28] MEDS: Pantoprazole 40 MG VIAL IVP SCH (08:03)
[2018-11-28] MEDS: Chlorhexidine Rinse 15 ML MOUTHWASH MM SCH ×2 (08:03→20:50)
[2018-11-28] MEDS: Insulin LISPRO 300 UNITS/3 ML VIAL SQ SCH ×4 (08:04→20:51)
--- NOTE | 2018-11-28 10:06 | Cardiothoracic Progress Note ---
Date of Encounter: 11/28/18 Time of Encounter: 10:04 - Assessment and plan (1) CAD (coronary artery disease) Current Visit: Yes Status: Acute The patient is recovering well from his CABG1. The chest tubes were removed. The patient will begin ambulating in the hallways today. The assessment and plan as outlined above was discussed with the patient and/or family members who expressed understanding and agreement. All questions were answered. Qualifiers: Coronary Disease-Associated Artery/Lesion type: [place] artery [place] vs. transplanted heart: [place] heart Associated angina: with unstable angina Qualified Code(s): I25.110 - Atherosclerotic heart disease of [place] coronary artery with unstable angina pectoris - Subjective Procedure(s) Performed: POD#2 S/P CABG1 Interval history: The patient remained hemodynamically stable overnight. He was able to sit in a chair without difficulty. He began ambulating in his room today without difficulty. Vital Signs, Last 4 Hours Temp Pulse Resp BP Pulse Ox 11/28/18 07:53 98.3 F 90 18 176/116 91 11/28/18 07:49 17 94 Oxgyen Flow Rate Oxygen Flow Rate (LPM) 0 Clinical Data, last 8 Hours Output, Chest Tube Drainage 0 Amount [Mediastinal #2] Output, Chest Tube Drainage 0 Amount [Mediastinal #2] Output, Chest Tube Drainage 20 Amount [Mediastinal #1] Output, Chest Tube Drainage 50 Amount [Mediastinal #1] Output, Urine Amount 600 Output, Urine Amount 200 Output, Urine Amount 250 Output, Urine Amount 225 Output, Urine Amount 125 Output, Urine Amount 200 Weight 11/26/18 11/27/18 11/28/18 23:59 23:59 23:59 Weight 92.533 kg 92.9 kg - Physical Examination General: Conversant, No Apparent Distress Neck: No JVD, Normal carotid pulses Cardiac: Reg Rate and Rhythm, Normal S1 and S2, No Murmur Incision: No signs of infection, Dry/intact dressing Sternum: Stable Chest tubes: Minimal drainage, Other (No air leak) Pacing Wires: In place Lungs: Normal Breath Sounds, No Wheeze, Rales, Rhonchi Neuro: Alert and responsive, No focal deficits noted Vascular: Normal capillary refill Extremities: No Clubbing, No Cyanosis, No Edema - Labs 11/28/18 04:15 11/28/18 04:15 Lab Results, Last 24 hours 11/28/18 11/28/18 04:15 04:15 WBC 11.1 D Hgb 10.4 L Hct 33.1 L Plt Count 163 Sodium 136 Potassium 4.6 Chloride 102 Carbon Dioxide 31 H BUN 20 Creatinine 1.07 Glucose 128 H Calcium 8.5 L - VTE Reasons for not Prescribing Prophylaxis: Medical contraindication Documentation of Mechanical Device: Graduated compression elastic hosiery Consult Discharge Plan - Plan Referrals: Peter Espinal DO [Primary Care Provider] -
[2018-11-28] MEDS: *HR* FentaNYL (PF) 100 MCG/2 ML VIAL IVP PRN (10:24)
[2018-11-28] MEDS: *HR* Heparin 5,000 UNIT/ML VIAL SQ SCH ×2 (12:23→17:31)
[2018-11-28] MEDS: cloNIDine HCl 0.1 MG TABLET PO PRN (20:51)
[2018-11-29] MEDS: Ketorolac 15 MG/ML VIAL IVP SCH ×5 (00:11→23:42)
[2018-11-29] MEDS: Metoclopramide 10 MG/2 ML VIAL IVP SCH ×3 (00:11→12:12)
[2018-11-29] MEDS: *HR* FentaNYL (PF) 100 MCG/2 ML VIAL IVP PRN (00:12)
[2018-11-29] MEDS: *HR* Heparin 5,000 UNIT/ML VIAL SQ SCH ×2 (05:55→17:13)
[2018-11-29] MEDS: Insulin LISPRO 300 UNITS/3 ML VIAL SQ SCH ×3 (08:16→17:11)
[2018-11-29] MEDS: *HR* OxyCODONE/APAP 5/325 TABLET PO PRN ×3 (08:24→19:49)
[2018-11-29] MEDS: cloNIDine HCl 0.1 MG TABLET PO PRN (08:24)
[2018-11-29] MEDS: Furosemide 20 MG/2 ML VIAL IVP SCH ×2 (08:24→17:14)
[2018-11-29] MEDS: Aspirin Enteric Coated 81 MG Tablet PO SCH (08:24)
[2018-11-29] MEDS: Chlorhexidine Rinse 15 ML MOUTHWASH MM SCH ×2 (08:24→19:48)
[2018-11-29] MEDS: Pantoprazole 40 MG VIAL IVP SCH (08:24)
[2018-11-29] MEDS: *HR* Amiodarone 200 MG TABLET PO SCH (08:25)
[2018-11-29] MEDS: Nicotine 21 MG PATCH.TD24 TD SCH (08:32)
--- NOTE | 2018-11-29 08:56 | Cardiothoracic Progress Note ---
Date of Encounter: 11/29/18 Time of Encounter: 08:54 - Assessment and plan (1) CAD (coronary artery disease) Current Visit: Yes Status: Acute The patient is recovering well from his CABG1. The patient will continue ambulating in the hallways today. The assessment and plan as outlined above was discussed with the patient and/or family members who expressed understanding and agreement. All questions were answered. Qualifiers: Coronary Disease-Associated Artery/Lesion type: [place] artery [place] vs. transplanted heart: [place] heart Associated angina: with unstable angina Qualified Code(s): I25.110 - Atherosclerotic heart disease of [place] coronary artery with unstable angina pectoris - Subjective Procedure(s) Performed: POD#3 S/P CABG1 Interval history: The patient remained hemodynamically stable overnight. He was able to ambulate in the hallways multiple times yesterday without difficulty. Vital Signs, Last 4 Hours Temp Pulse Resp BP Pulse Ox 11/29/18 07:55 98.8 F 89 18 165/118 92 11/29/18 07:26 16 92 Oxgyen Flow Rate Oxygen Flow Rate (LPM) 2 Clinical Data, last 8 Hours Output, Urine Amount 400 Weight 11/27/18 11/28/18 11/29/18 23:59 23:59 23:59 Weight 92.9 kg 90.9 kg - Physical Examination General: Conversant, No Apparent Distress Neck: No JVD, Normal carotid pulses Cardiac: Reg Rate and Rhythm, Normal S1 and S2, No Murmur Incision: No signs of infection, Dry/intact dressing Sternum: Stable Pacing Wires: In place Lungs: Normal Breath Sounds, No Wheeze, Rales, Rhonchi Neuro: Alert and responsive, No focal deficits noted Vascular: Normal capillary refill Extremities: No Clubbing, No Cyanosis, No Edema - Labs 11/28/18 04:15 11/28/18 04:15 - VTE Reasons for not Prescribing Prophylaxis: Medical contraindication Documentation of Mechanical Device: Graduated compression elastic hosiery Consult Discharge Plan - Plan Referrals: Peter Espinal DO [Primary Care Provider] -
[2018-11-29] MEDS: cloNIDine HCl 0.1 MG TABLET PO SCH ×3 (11:20→19:49)
[2018-11-29] MEDS: Lisinopril 20 MG TABLET PO SCH (12:11)
[2018-11-30] MEDS: Ketorolac 15 MG/ML VIAL IVP SCH (05:17)
[2018-11-30] MEDS: *HR* Heparin 5,000 UNIT/ML VIAL SQ SCH (05:17)
[2018-11-30 07:27] VITALS: BP 172/101
[2018-11-30] MEDS: *HR* OxyCODONE/APAP 5/325 TABLET PO PRN (07:49)
[2018-11-30] MEDS: cloNIDine HCl 0.1 MG TABLET PO SCH (07:50)
[2018-11-30] MEDS: *HR* Amiodarone 200 MG TABLET PO SCH (07:50)
[2018-11-30] MEDS: Aspirin Enteric Coated 81 MG Tablet PO SCH (07:50)
[2018-11-30] MEDS: Lisinopril 20 MG TABLET PO SCH (07:50)
[2018-11-30] MEDS: Furosemide 20 MG/2 ML VIAL IVP SCH (07:51)
[2018-11-30] MEDS: Pantoprazole 40 MG VIAL IVP SCH (07:51)
[2018-11-30] MEDS: Nicotine 21 MG PATCH.TD24 TD SCH (07:51)
[2018-11-30] MEDS: Chlorhexidine Rinse 15 ML MOUTHWASH MM SCH (07:51)
--- NOTE | 2018-11-30 08:06 | Discharge Summary ---
Orders not resulted at time of discharge: Pending orders 11/27/18 09:21 Red Blood Cells [BBK] Routine Date of Encounter: 11/30/18 Time of Encounter: 08:01 - Discharge Diagnosis (1) CAD (coronary artery disease) Priority: Primary Status: Acute Qualifiers: Coronary Disease-Associated Artery/Lesion type: [place] artery [place] vs. transplanted heart: [place] heart Associated angina: with unstable angina Qualified Code(s): I25.110 - Atherosclerotic heart disease of [place] coronary artery with unstable angina pectoris - Hospital Course Hospital course: Mr. Berrios is a 48 year old hypertensive man with hypercholesterolemia, known cerebrovascular disease, and known peripheral arterial disease. He states that he had severe substernal chest pain and 2017 which lasted for several days. The pain eventually resolved and he was scheduled for several vascular procedures, including endovascular AAA repair, left femoral-popliteal bypass, and right femoral-popliteal bypass. He underwent cardiac clearance prior to these procedures, including a nuclear stress test which was negative for ischemia. Recently, the began experiencing exertional, nonradiating substernal chest pain and shortness of breath. He states that walking quickly or carrying heavy objects will precipitate the pain and shortness of breath. If the rest for 5 minutes, he has relief of the symptoms; however, the symptoms will recur with activity. He underwent cardiac catheterization and was found to have severe 3 vessel CAD and an LVEF 65%. In particular, the patient has a 70% mid LAD lesion, a 70-80% proximal D1 lesion, a 50% proximal LCx lesion, and platelet occluded proximal OM1 which fills distally via left to left collaterals, an 80% proximal PDA lesion, and a 60-70% proximal right PLB lesion. The patient was recommended for CABG. During his office evaluation, his extensive bilateral lower extremity surgeries were evaluated, and the left and right femoral-popliteal bypasses were noted to be performed with greater saphenous vein. He had positive Bc signs bilaterally and the radial arteries were not usable for bypass conduit. A venous mapping procedure indicated that the lesser saphenous vein was also unsuitable for bypass conduit. The patient's arborer, Dr. Max Chang, was contacted and it was decided that a hybrid procedure would be performed to bypass the coronary arteries. The LOYD was be used to bypass the LAD and the patient would have coronary stents placed in the LCx and RCA distributions. The patient underwent CABG1 on 11/26/2018. His postoperative course was uncomplicated. Chest tubes were removed on POD#2 and the patient was ambulating in the hallways without difficulty. He was discharged home on POD#4. - Time Spent with Patient Total time spent providing and/or coordinating discharge services: - Discharge Medications Prescriptions: New Metoprolol [Lopressor] 50 mg PO BID #60 tablet OxyCODONE/APAP 5/325 [Percocet 5/325 MG] 1 each PO Q4HR PRN 7 Days #42 tablet PRN Reason: Severe Pain Continued Simvastatin [Zocor] 40 mg PO QPM Potassium Gluconate 99 mg PO BID Omeprazole [PriLOSEC] 20 mg PO HS Multivitamin [One Daily Essential] 1 tab PO DAILY Aspirin [Lo-Dose Aspirin EC] 81 mg PO HS Ascorbate Calcium [Vitamin C] 500 mg PO BID Hydralazine HCl 50 mg PO TID Allopurinol [Zyloprim] 300 mg PO DAILY CloNIDine HCl [Kapvay] 0.1 mg PO TID hydroCHLOROthiazide [Hydrochlorothiazide] 50 mg PO DAILY Spironolactone [Aldactone] 25 mg PO DAILY Nicotine Patch [Nicoderm] 21 mg TD DAILY Nitroglycerin [Nitrostat] 0.4 mg SL Q5M PRN PRN Reason: Chest Pain Lisinopril [Zestril] 40 mg PO BID Discontinued Labetalol [Trandate] 100 mg PO BID Home Medications: Ascorbate Calcium [Vitamin C] 500 mg PO BID 08/27/17 [History] Aspirin [Lo-Dose Aspirin EC] 81 mg PO HS 08/27/17 [History] Multivitamin [One Daily Essential] 1 tab PO DAILY 08/27/17 [History] Omeprazole [PriLOSEC] 20 mg PO HS 08/27/17 [History] Potassium Gluconate 99 mg PO BID 08/27/17 [History] Simvastatin [Zocor] 40 mg PO QPM 08/27/17 [History] Allopurinol [Zyloprim] 300 mg PO DAILY 06/02/18 [History] CloNIDine HCl [Kapvay] 0.1 mg PO TID 06/02/18 [History] Hydralazine HCl 50 mg PO TID 06/02/18 [History] Spironolactone [Aldactone] 25 mg PO DAILY 10/13/18 [History] hydroCHLOROthiazide [Hydrochlorothiazide] 50 mg PO DAILY 10/13/18 [History] Lisinopril [Zestril] 40 mg PO BID 11/26/18 [History] Nicotine Patch [Nicoderm] 21 mg TD DAILY 11/26/18 [History] Nitroglycerin [Nitrostat] 0.4 mg SL Q5M PRN 11/26/18 [History] Metoprolol [Lopressor] 50 mg PO BID #60 tablet 11/30/18 [Rx] OxyCODONE/APAP 5/325 [Percocet 5/325 MG] 1 each PO Q4HR PRN 7 Days #42 tablet 11/30/18 [Rx] Allergies/Adverse Reactions: Allergy/AdvReac Type Severity Reaction Status Date / Time No Known Allergies Allergy Verified 11/26/18 07:13 Date of admission: 11/26/18 10:01 Primary care physician: Peter Espinal DO Consults: 11/26/18 11:34 Consult to Cardiac Rehabilitation-Phase1 [CONS] Routine Comment: Reason for Consult: Post open heart Call Completed: Yes Procedure(s) Performed: 1. CABG1 (LOYD to LAD) performed 11/26/2018. Discharging clinician: Kasia Yu Anticipated date of discharge: 11/30/18 Physical Examination Vital Signs, Last 4 Hours Temp Pulse Resp BP Pulse Ox 11/30/18 07:30 18 96 11/30/18 07:25 77 18 172/101 11/30/18 05:00 98.7 F 83 16 133/87 96 11/30/18 04:09 16 92 General: Conversant, No Apparent Distress HEENT: Atraumatic, Normocephaly, Trachea midline Neck: No JVD, Normal carotid pulses Cardiac: Reg Rate and Rhythm, Normal S1 and S2, No Murmur Lungs: Normal Breath Sounds, No Wheeze, Rales, Rhonchi Neuro: Alert and responsive, No focal deficits noted Vascular: Normal capillary refill Abdomen: Soft, Non-tender Skin: No rashes noted on visualized skin Musculoskeletal: Other (Sternum stable to both deep breathing and coughing.) Extremities: No Clubbing, No Cyanosis, No Edema - Patient Status Disposition: Home, Self-Care Functional capacity at discharge: independent ambulation Overall status at discharge: patient is progressing back to baseline - Discharge Instructions Instructions: Oxycodone/Acetaminophen (By mouth), Coronary Artery Bypass Graft (DC), Heart Healthy Diet (DC), Sternal Precautions (GEN) Follow Up With: Kasia Yu MD [Partnered Physician] - Peter Espinal DO [Primary Care Provider] - - Diet and Activity Activity: sternal precautions, no driving for four weeks, no lifting greater than 10 pounds for eight weeks Diet: low fat, low cholesterol Open Heart Registry Aspirin Cont/Prescribed at DC: Yes Beta Bill Cont/Prescribed at DC: Yes Statin Cont/Prescribed at DC: Yes MALLORY/ARB Cont/Prescribed at DC: Yes - VTE Reasons for not Prescribing Prophylaxis: Medical contraindication Documentation of Mechanical Device: Graduated compression elastic hosiery
== END 2018-11-30 10:16 | disposition home or self-care (01) | DRG 166 ==
LOC: SAMDAY 06:12 → ICNU 10:01 → 2NNU 11-27 17:02
PROVIDERS: ADMIT Thoracic Surgery (Cardiothoracic Vascular Surgery); ATTEND Thoracic Surgery (Cardiothoracic Vascular Surgery)